=== PATIENT | female | born 1990 | race Two or more races ===

== ENCOUNTER 2020-07-20 01:11 | Emergency (ER) | payer OTHER, SELFPAY ==
[2020-07-20 01:14] VITALS: BP 119/63; PULSE 80; RESP 16; TEMP 36.7; O2SAT 98; BMI 26.5
--- NOTE | 2020-07-20 01:58 | ED.HA ---
HPI - Headache General Chief Complaint: Head Injury Stated Complaint: Head inj Time Seen by Provider: 07/20/20 01:57 Source: patient Mode of arrival: ambulatory Limitations: no limitations History of Present Illness HPI Narrative: This is a a year old female who presents after trying to move a shelf and states that she swung her head around and struck the right side against the edge of the vent could above the stove /oven. Patient denies loss of consciousness but states that she has had a headache since the event that has not improved with Tylenol. Otherwise, patient denies any visual disturbances or unsteady gait. Related Data Allergies Allergy/AdvReac Type Severity Reaction Status Date / Time No Known Allergies Allergy Verified 07/17/20 08:11 Review of Systems Review of Systems: Pertinent positives and negatives as stated in HPI and 10 point review of systems is otherwise negative. PMFSH Past Medical History Source: nursing notes reviewed Medical History GERD (gastroesophageal reflux disease) Migraine Surgical History History of breast lump/mass excision Family History Family History Father Cancer Hypertension Mother Hypertension Paternal Grandmother Breast cancer Paternal Grandfather FH: testicular cancer Social History Social History Alcohol intake: never Smoking Status: Heavy tobacco smoker Smoked in Last 30 Days: No Use of substances other than those prescribed or required for medical reasons: No Any prior treatment program specific to substance use: No Advance Directives: No Physical Exam Vital Signs: Vital Signs: Vital Signs Temp Pulse Resp BP Pulse Ox 07/20/20 01:14 98.0 F 80 16 119/63 98 Body Mass Index 26.5 VITAL SIGNS: Reviewed. GENERAL: Well developed, well nourished, in no acute distress. HEAD: Normocephalic/atraumatic, EYES: PERRLA, EOMI intact without pain, no nystagmus/pallor/icterus noted EARS: Ext canals without abnormality, TMs non-bulging and non-erythematous NOSE: Nares patent bilateral OROPHARYNX: no oral lesions noted, posterior pharynx clear and non-erythematous without noted tonsillar enlargement/erythema/exudates NECK: Supple, no adenopathy LUNGS: Normal breath sounds. No adventitious sounds or accessory muscle use. SpO2<98> CARDIOVASCULAR: Regular rate and rhythm without noted murmurs, no JVD or lower extremity edema. ABDOMEN: Soft, non-tender, non-distended with bowel sounds. No rigidity. No guarding. No palpable masses or hernias noted MUSCULOSKELETAL: No tenderness, deformities, or effusions noted on gross inspection. EXTREMITIES: No cyanosis, clubbing or edema. SKIN: Inspection of the skin reveals no rashes, ulcerations, jaundice, pallor, or petechiae. NEUROLOGIC: Alert and oriented x 4. Strength and sensation to light touch were grossly intact x 4. Course Course Course Narrative: This is a 30-year-old female with history and clinical presentation consistent with in her head injury without LOC and no abrasion/laceration. Patient was provided with combination analgesics and then became upset and eloped. Discharge Plan Discharge Clinical Impression: Minor head injury Qualifiers: Encounter type: initial encounter Qualified Code(s): S09.90XA - Unspecified injury of head, initial encounter Patient Disposition: Elopement Interventions: ED Discharge Assessment Last Done: 07/20/20 02:14 Discharge Date/Time: 07/20/20 02:14
--- NOTE | 2020-07-20 02:13 | PC.NURSE ---
pt wanted to leave after speaking to dr lei. aware. pt neuro intact, in nad.
== END 2020-07-20 02:14 | disposition left against medical advice (07) ==
PROVIDERS: Emergency Provider Student in an Organized Health Care Education/Training Program; PCP Internal Medicine
DX: S09.90XA Unspecified injury of head, initial encounter (principal); G44.309 Post-traumatic headache, unspecified, not intractable; Y29.XXXA Contact with blunt object, undetermined intent, initial encounter; Y93.9 Activity, unspecified; Y92.9 Unspecified place or not applicable; Y99.9 Unspecified external cause status; F17.200 Nicotine dependence, unspecified, uncomplicated; Z71.6 Tobacco abuse counseling
CPT/HCPCS: 96372; 99284

== ENCOUNTER 2020-07-31 08:08 | Outpatient (REF) | payer OTHER, SELFPAY ==
[2020-07-31 09:40] LABS: MANUAL DIFF FLAG NO
[2020-07-31 09:43] LABS: Basophils Absolute Auto 0.1 X10*3/uL (0.0-0.2); Basophils Percent Auto 0.8 % (0-2); Eosinophils Absolute Auto 0.1 X10*3/uL (0.0-0.4); Eosinophils Percent Auto 0.9 % (0-4); Hematocrit 38.2 % (37-47); Hemoglobin 12.4 g/dl (12.0-16.0); Imm Gran Abs Auto 0.01 X10*3/uL (0.00-0.03); Imm Gran Pct Auto 0.2 % (0.0-0.4); Lymphocytes Absolute Auto 1.9 X10*3/uL (1.2-4.9); Lymphocytes Percent Auto 29.2 % (20-40); Mean Corpuscular HGB Conc 32.5 g/dl (31.0-35.0); Mean Corpuscular Hemoglobin 28.3 pg (27.0-33.0); Mean Corpuscular Volume 87.2 fL (80-98); Mean Platelet Volume 9.6 fL (9.4-12.3); Monocytes Absolute Auto 0.5 X10*3/uL (0.1-1.2); Monocytes Percent Auto 7.4 % (2-11); Neutrophils Percent Auto 61.5 % (45-73); Platelet Count 276 X10*3/uL (160-400); Red Blood Count 4.38 X10*6/uL (4.20-5.50); Red Cell Distribution Width 11.9 % (11.0-16.0); White Blood Count 6.5 X10*3/uL (4.8-10.8)
[2020-07-31 10:13] LABS: Anion Gap 10 (12-20); Blood Urea Nitrogen 11 mg/dL (9-16); Calcium 9.2 mg/dL (8.4-10.2); Carbon Dioxide 28 mmol/L (22-29); Chloride 106 mmol/L (96-108); Cholesterol 129 mg/dL; Estimated Glomerular Filt Rate > 60; Glucose Fasting 82 mg/dL (60-99); HDL Cholesterol 46 mg/dL; LDL Cholesterol Calculated 77 mg/dl; Potassium 4.5 mmol/l (3.3-5.1); Sodium 139 mmol/L (135-145); Triglycerides 31 mg/dL
[2020-08-05 11:37] LABS: Vitamin D 25-OH, D2 <4 ng/mL; Vitamin D 25-OH, D3 34 ng/mL; Vitamin D 25-OH, Total 34 ng/mL (30-100)
== END 2020-07-31 08:09 | disposition home or self-care (01) ==
LOC: HO.LAB 08:08
PROVIDERS: PCP Internal Medicine; Visit Provider Nurse Practitioner Family
DX: Z00.00 Encounter for general adult medical examination without abnormal findings (principal)
CPT/HCPCS: 36415; 80048; 80061; 82306; 85025

== ENCOUNTER 2020-09-10 09:16 | Outpatient (REF) | payer OTHER, SELFPAY ==
[2020-09-10 10:27] LABS: COVID-19 Test Negative (Negative)
== END 2020-09-10 09:17 | disposition home or self-care (01) ==
LOC: HO.EMPCOV 09:16
PROVIDERS: PCP Internal Medicine; Visit Provider Internal Medicine
DX: Z20.828 Contact with and (suspected) exposure to other viral communicable diseases (principal)
CPT/HCPCS: 87635; C9803

== ENCOUNTER 2020-10-05 14:29 | Outpatient (REF) | payer OTHER, SELFPAY ==
[2020-10-05 14:52] LABS: COVID-19 Test Negative (Negative)
== END 2020-10-05 14:30 | disposition home or self-care (01) ==
LOC: HO.EMPCOV 14:29
PROVIDERS: Visit Provider Internal Medicine
DX: Z20.828 Contact with and (suspected) exposure to other viral communicable diseases (principal)
CPT/HCPCS: 36415; 87635; C9803

== ENCOUNTER 2020-10-17 13:57 | Outpatient (REF) | payer OTHER, SELFPAY ==
[2020-10-17 14:33] LABS: COVID-19 Test Negative (Negative); IDNOW Serial# 08D9AD1C
== END 2020-10-17 13:58 | disposition home or self-care (01) ==
LOC: HO.LAB 13:57
PROVIDERS: Visit Provider Internal Medicine
DX: Z20.822 Contact with and (suspected) exposure to COVID-19 (principal)
CPT/HCPCS: 36415; 87635

== ENCOUNTER 2020-11-26 12:27 | Outpatient (REF) | payer OTHER, SELFPAY ==
[2020-11-26 12:47] LABS: COVID-19 Test Negative (Negative); IDNOW Serial# 55D5AD1C
== END 2020-11-26 12:28 | disposition home or self-care (01) ==
LOC: HO.LAB 12:27
PROVIDERS: Visit Provider Internal Medicine
DX: Z20.822 Contact with and (suspected) exposure to COVID-19 (principal)
CPT/HCPCS: 36415; 87635; C9803

== ENCOUNTER 2020-12-31 10:30 | Outpatient (REF) | payer OTHER, SELFPAY ==
[2020-12-31 10:50] LABS: COVID-19 Test Positive (Negative); IDNOW Serial# 55D5AD1C
== END 2020-12-31 10:31 | disposition home or self-care (01) ==
LOC: HO.LAB 10:30
PROVIDERS: Visit Provider Internal Medicine
DX: Z20.822 Contact with and (suspected) exposure to COVID-19 (principal)
CPT/HCPCS: 36415; 87635; C9803

== ENCOUNTER 2021-01-11 11:56 | Outpatient (REF) | payer OTHER, SELFPAY ==
[2021-01-12 08:16] LABS: HBS Num1 78.74 mIU/mL (0-7.99); HBsAGNum1 0.36 S/CO (0.00-0.99); Hepatitis B Surface Antigen Negative (Negative); ~Hepatitis B Surface Antibody REACTIVE (Nonreactive)
[2021-01-12 08:22] LABS: HBc Num1 0.02 S/CO (0.00-0.79); Hepatitis B Core Antibody Nonreactive (Nonreactive)
[2021-01-12 09:11] LABS: Rubella IgG Antibody 4.03 Index
== END 2021-01-11 11:57 | disposition home or self-care (01) ==
LOC: HO.LAB 11:56
PROVIDERS: PCP Internal Medicine; Visit Provider Internal Medicine
DX: Z01.84 Encounter for antibody response examination (principal)
CPT/HCPCS: 36415; 86704; 86706; 86735; 86762; 86765; 86787; 87340

== ENCOUNTER 2021-05-04 14:32 | Outpatient (REF) | payer OTHER, SELFPAY ==
[2021-05-05 04:36] LABS: SARS COV2 IgG Negative (Negative)
== END 2021-05-04 14:33 | disposition home or self-care (01) ==
LOC: HO.LAB 14:32
PROVIDERS: PCP Internal Medicine; Visit Provider Internal Medicine
DX: Z20.822 Contact with and (suspected) exposure to COVID-19 (principal); K21.9 Gastro-esophageal reflux disease without esophagitis
CPT/HCPCS: 36415; 86769

== ENCOUNTER 2021-05-07 08:48 | Outpatient (REF) | payer OTHER, SELFPAY ==
[2021-05-07 10:13] LABS: MANUAL DIFF FLAG NO
[2021-05-07 10:19] LABS: Basophils Percent Auto 0.6 % (0-2); Eosinophils Absolute Auto 0.1 X10*3/uL (0.0-0.4); Eosinophils Percent Auto 0.8 % (0-4); Hematocrit 35.3 % (37-47); Hemoglobin 11.4 g/dl (12.0-16.0); Imm Gran Abs Auto 0.01 X10*3/uL (0.00-0.03); Imm Gran Pct Auto 0.2 % (0.0-0.4); Lymphocytes Absolute Auto 2.1 X10*3/uL (1.2-4.9); Lymphocytes Percent Auto 32.3 % (20-40); Mean Corpuscular HGB Conc 32.3 g/dl (31.0-35.0); Mean Corpuscular Hemoglobin 28.1 pg (27.0-33.0); Mean Corpuscular Volume 86.9 fL (80-98); Mean Platelet Volume 9.5 fL (9.4-12.3); Monocytes Absolute Auto 0.5 X10*3/uL (0.1-1.2); Monocytes Percent Auto 6.8 % (2-11); Neutrophils Absolute Auto 3.9 X10*3/uL (2.0-8.3); Neutrophils Percent Auto 59.3 % (45-73); Platelet Count 279 X10*3/uL (160-400); Red Blood Count 4.06 X10*6/uL (4.20-5.50); Red Cell Distribution Width 12.2 % (11.0-16.0); White Blood Count 6.6 X10*3/uL (4.8-10.8)
[2021-05-07 10:55] LABS: Alanine Aminotransferase 19 U/L (0-31); Alkaline Phosphatase 49 U/L (39-117); Anion Gap 13 (12-20); Aspartate Amino Transferase 32 U/L (5-31); Bilirubin Total 0.4 mg/dL (0.0-1.0); Blood Urea Nitrogen 9 mg/dL (9-16); Carbon Dioxide 21 mmol/L (22-29); Chloride 109 mmol/L (96-108); Estimated Glomerular Filt Rate > 60; Glucose Random 79 mg/dL (60-115); Potassium 4.1 mmol/L (3.3-5.1); Sodium 139 mmol/L (135-145); Total Protein 6.5 g/dL (6.5-8.0)
[2021-05-07 11:11] LABS: SARS COV2 IgG Negative (Negative)
[2021-05-07 11:16] LABS: Thyroid Stimulating Hormone 1.32 uIU/mL (0.32-4.0)
[2021-05-07 11:40] LABS: Folate 11.6 ng/mL (> or = 4.0); Vitamin B12 624 pg/mL (200-900)
== END 2021-05-07 08:49 | disposition home or self-care (01) ==
LOC: HO.LAB 08:48
PROVIDERS: PCP Internal Medicine; Visit Provider Internal Medicine
DX: Z20.822 Contact with and (suspected) exposure to COVID-19 (principal); R53.83 Other fatigue
CPT/HCPCS: 80053; 82607; 82746; 84439; 84443; 85025; 86769; U0003; U0005

== ENCOUNTER 2021-05-11 13:04 | Outpatient (REF) | payer OTHER, SELFPAY | END 2021-05-11 13:05 | disposition home or self-care (01) | LOC: HO.LAB 13:04 | PROVIDERS: PCP Internal Medicine; Visit Provider Internal Medicine | DX: Z13.89 Encounter for screening for other disorder (principal) ==

== ENCOUNTER → 2021-05-11 13:26 | Outpatient (BNVA) | payer OTHER, SELFPAY | PROVIDERS: PCP Internal Medicine | DX: Z13.89 Encounter for screening for other disorder (principal); Z20.822 Contact with and (suspected) exposure to COVID-19 | CPT/HCPCS: 36415; 87635; C9803 ==

== ENCOUNTER 2021-06-18 20:57 | Emergency (ER) | payer OTHER, SELFPAY ==
[2021-06-18 21:08] VITALS: BP 125/81; PULSE 82; RESP 18; TEMP 36.7; O2SAT 98; BMI 25.6
[2021-06-18 21:34] LABS: MANUAL DIFF FLAG NO
[2021-06-18 21:35] LABS: Basophils Percent Auto 0.5 % (0-2); Eosinophils Percent Auto 0.5 % (0-4); Hemoglobin 12.2 g/dl (12.0-16.0); Imm Gran Abs Auto 0.01 X10*3/uL (0.00-0.03); Imm Gran Pct Auto 0.2 % (0.0-0.4); Lymphocytes Absolute Auto 1.9 X10*3/uL (1.2-4.9); Lymphocytes Percent Auto 28.9 % (20-40); Mean Corpuscular Hemoglobin 28.4 pg (27.0-33.0); Mean Platelet Volume 9.3 fL (9.4-12.3); Monocytes Absolute Auto 0.7 X10*3/uL (0.1-1.2); Monocytes Percent Auto 10.9 % (2-11); Neutrophils Absolute Auto 3.9 X10*3/uL (2.0-8.3); Platelet Count 247 X10*3/uL (160-400); Red Cell Distribution Width 12.3 % (11.0-16.0); White Blood Count 6.5 X10*3/uL (4.8-10.8)
[2021-06-18 21:51] LABS: Alanine Aminotransferase 14 U/L (0-31); Albumin Level 4.2 g/dL (3.5-5.0); Alkaline Phosphatase 60 U/L (39-117); Anion Gap 12 (12-20); Aspartate Amino Transferase 22 U/L (5-31); Bilirubin Total 0.4 mg/dL (0.0-1.0); Blood Urea Nitrogen 8 mg/dL (9-16); Calcium 9.1 mg/dL (8.4-10.2); Carbon Dioxide 24 mmol/L (22-29); Chloride 107 mmol/L (96-108); Estimated Glomerular Filt Rate > 60; Glucose Random 91 mg/dL (60-115); Potassium 3.9 mmol/L (3.3-5.1); Sodium 139 mmol/L (135-145); Total Protein 6.7 g/dL (6.5-8.0)
[2021-06-18 21:53] LABS: Appearance Urine CLEAR; Color Urine YELLOW; Glucose Urine UA NEG (NEG); Leukocyte Esterase Urine NEG (NEG); Nitrite Urine NEG (NEG); Specific Gravity - Urine <= 1.005 (1.005-1.025); Urine Blood NEG (NEG); Urine Ketones NEG (NEG); Urine Protein NEG (NEG-TRACE)
[2021-06-18 21:57] LABS: UPreg QC Valid YES; Urine Pregnancy NEGATIVE (NEGATIVE)
[2021-06-18 23:26] VITALS: BP 122/72; PULSE 71; RESP 14; O2SAT 100
--- NOTE | 2021-06-18 23:56 | ED_ITS ---
HPI - Nausea/Vomiting/Diarrhea General Chief complaint: Nausea/Vomiting/Diarrhea Stated complaint: Diarrhea/Blood in stool/Headache Time Seen by Provider: 06/18/21 23:53 Source: patient Mode of arrival: ambulatory Limitations: no limitations History of Present Illness HPI Narrative: This is a 31-year-old female came to the emergency department for evaluation of headache, lower abdominal pain, nausea, vomiting, and blood in the diarrhea stool. Patient stated that symptoms started since Monday, symptoms been persistent since then, no recent travel, no sick contact, no recent use of antibiotics, no fever, no chills. Patient emergency room reported improvement of her symptoms is no nausea or vomiting now. Related Data Previous Rx's Medication Instructions Recorded valacyclovir 500 mg tablet 500 mg PO DAILY #90 tab 05/04/21 Allergies Allergy/AdvReac Type Severity Reaction Status Date / Time No Known Allergies Allergy Verified 11/26/20 11:39 Review of Systems 2 Review of Systems: All other systems are reviewed and are negative Constitutional: Reports as per HPI and Reports no additional constitutional complaints Eyes: Reports as per HPI and Reports no additional eye complaints Reports system reviewed and no additional complaints, except as documented Cardiovascular: Reports as per HPI and Reports no additional cardiovascular complaints Respiratory: Reports as per HPI and Reports no additional respiratory complaints Gastrointestinal: Reports as per HPI and Reports no additional gastrointestinal complaints Genitourinary: Reports no additional female genitourinary complaints Musculoskeletal: Reports no additional musculoskeletal complaints Skin/Breast: Reports system reviewed and no additional complaints, except as docu Psychiatric: Reports no additional psychiatric complaints Endocrine: Reports no additional endocrine complaints Hematologic/Lymphatic: Reports no additional hematologic/lymphatic complaints Allergic/Immunologic: Reports no additional allergic/immunologic complaints Reports system reviewed and no additional complaints, except as documented and Reports Abnormal speech present [facility] Past Medical History Medical History GERD (gastroesophageal reflux disease) Migraine Surgical History History of breast lump/mass excision Family History Family History Father Cancer Hypertension Mother Hypertension Paternal Grandmother Breast cancer Paternal Grandfather FH: testicular cancer Social History Social History Alcohol intake: never Advance Directives: No Patient : No Physical Exam Vital Signs: Vital Signs: Last Vital Signs Temp 98.1 F 06/18/21 21:08 Pulse 71 06/18/21 23:26 Resp 14 06/18/21 23:26 BP 122/72 06/18/21 23:26 Pulse Ox 100 06/18/21 23:26 Body Mass Index 25.6 Vital signs have been reviewed as appeared to be correct. Blood pressure normal . Heart rate normal. Respiration rate normal. Temperature normal. Oxygen saturation normal. Appearance: Alert. Oriented X3. No acute distress. Head: Normal external exam. Normocephalic. Atraumatic. No Michele signs noted. No raccoon eyes noted Eyes: PERRLA. EOMI. Conjunctiva and sclera normal. Eyelids normal. ENT: TM's Normal. Pharynx normal. Uvula midline. Moist mucous membranes. No trismus noted. No drooling noted. No muffled voice noted. Neck: Normal inspection. Neck supple. FROM. No adenopathy. Thyroid Normal. No meningeal signs. No neck mass noted. CVS: Normal heart rate and rhythm. Heart sound normal. No murmurs noted. Pulses normal throughout. Respiratory: No respiratory distress. Painless inspiration. Breath sounds normal. No wheezes/rales/rhonchi noted. Chest nontender. No accessory muscle usage noted or decreased air movement noted. Abdomen: Soft and nontender. Bowel sounds normal in all 4 quadrants. No distention noted. No organomegaly noted. No visible injury noted. Rectal exam: Normal inspection, no external or internal hemorrhoid, no apparent blood in the vault. Back: No CVA tenderness. Full range of motion noted. Skin: Skin warm and dry. Normal skin color. Normal skin turgor. No rashes/lesions/lacerations noted. Extremities: No lower extremity edema. Extremities exhibit normal range of motion. Extremities nontender. Neuro: Oriented X 3. Cranial nerve exam: II-XII are grossly intact No motor deficit. No sensory deficit. Reflexes normal. Course Course Course Narrative: Assessment and plan. 31-year-old female came in with symptoms of gastroenteritis, patient declined any active symptoms now, labs are unremarkable. Able to tolerate p.o. intake. Will reassured, discharged home with instruction of drinking plenty of fluid and keep hydrated. Stable vital signs, stable H&H. MDM - Nausea/Vomiting/Diarrhea Lab Data Attestation: I reviewed the patient's lab results. Result diagrams: 06/18/21 21:23 06/18/21 21:23 Labs: Lab Results 06/18/21 06/18/21 06/18/21 Range/Units 21:23 21:23 21:23 WBC 6.5 (4.8-10.8) X10*3/uL RBC 4.30 (4.20-5.50) X10*6/uL Hgb 12.2 (12.0-16.0) g/dl Hct 37.0 (37-47) % MCV 86.0 (80-98) fL MCH 28.4 (27.0-33.0) pg MCHC 33.0 (31.0-35.0) g/dl RDW 12.3 (11.0-16.0) % Plt Count 247 (160-400) X10*3/uL MPV 9.3 L (9.4-12.3) fL Immature Gran % (Auto) 0.2 (0.0-0.4) % Neut % (Auto) 59.0 (45-73) % Lymph % (Auto) 28.9 (20-40) % [place] % (Auto) 10.9 (2-11) % Eos % (Auto) 0.5 (0-4) % Baso % (Auto) 0.5 (0-2) % Lymph # (Auto) 1.9 (1.2-4.9) X10*3/uL [place] # (Auto) 0.7 (0.1-1.2) X10*3/uL Eos # (Auto) 0.0 (0.0-0.4) X10*3/uL Baso # (Auto) 0.0 (0.0-0.2) X10*3/uL Abs Immat Gran (auto) 0.01 (0.00-0.03) X10*3/uL Absolute Neuts (auto) 3.9 (2.0-8.3) X10*3/uL Absolute Nucleated RBC 0.000 (0.0-0.012) X10*3/uL Nucleated RBC % (auto) 0.0 (0.0-0.2) /100WBC Sodium 139 (135-145) mmol/L Potassium 3.9 (3.3-5.1) mmol/L Chloride 107 (96-108) mmol/L Carbon Dioxide 24 (22-29) mmol/L Anion Gap 12 (12-20) BUN 8 L (9-16) mg/dL Creatinine 0.79 (0.5-1.4) mg/dL Estim Creat Clear Calc 92.0 Estimated GFR > 60 Random Glucose 91 (60-115) mg/dL Calcium 9.1 (8.4-10.2) mg/dL Total Bilirubin 0.4 (0.0-1.0) mg/dL AST 22 (5-31) U/L ALT 14 (0-31) U/L Alkaline Phosphatase 60 D (39-117) U/L Total Protein 6.7 (6.5-8.0) g/dL Albumin 4.2 (3.5-5.0) g/dL Urine Color YELLOW Urine Appearance CLEAR Urine pH 6.0 (5.0-8.0) Ur Specific [place] <= 1.005 (1.005-1.025) Urine Protein NEG (NEG-TRACE) MG/DL Urine Glucose (UA) NEG (NEG) MG/DL Urine Ketones NEG (NEG) MG/DL Urine Blood NEG (NEG) Urine Nitrite NEG (NEG) Ur Leukocyte Esterase NEG (NEG) Urine Test (NEGATIVE) Stool Occult Blood (NEGATIVE) COVID-19 (MALOU) (Negative) COVID-19 Clin Com 06/18/21 06/18/21 06/18/21 Range/Units 21:23 23:44 23:57 WBC (4.8-10.8) X10*3/uL RBC (4.20-5.50) X10*6/uL Hgb (12.0-16.0) g/dl Hct (37-47) % MCV (80-98) fL MCH (27.0-33.0) pg MCHC (31.0-35.0) g/dl RDW (11.0-16.0) % Plt Count (160-400) X10*3/uL MPV (9.4-12.3) fL Immature Gran % (Auto) (0.0-0.4) % Neut % (Auto) (45-73) % Lymph % (Auto) (20-40) % [place] % (Auto) (2-11) % Eos % (Auto) (0-4) % Baso % (Auto) (0-2) % Lymph # (Auto) (1.2-4.9) X10*3/uL [place] # (Auto) (0.1-1.2) X10*3/uL Eos # (Auto) (0.0-0.4) X10*3/uL Baso # (Auto) (0.0-0.2) X10*3/uL Abs Immat Gran (auto) (0.00-0.03) X10*3/uL Absolute Neuts (auto) (2.0-8.3) X10*3/uL Absolute Nucleated RBC (0.0-0.012) X10*3/uL Nucleated RBC % (auto) (0.0-0.2) /100WBC Sodium (135-145) mmol/L Potassium (3.3-5.1) mmol/L Chloride (96-108) mmol/L Carbon Dioxide (22-29) mmol/L Anion Gap (12-20) BUN (9-16) mg/dL Creatinine (0.5-1.4) mg/dL Estim Creat Clear Calc Estimated GFR Random Glucose (60-115) mg/dL Calcium (8.4-10.2) mg/dL Total Bilirubin (0.0-1.0) mg/dL AST (5-31) U/L ALT (0-31) U/L Alkaline Phosphatase (39-117) U/L Total Protein (6.5-8.0) g/dL Albumin (3.5-5.0) g/dL Urine Color Urine Appearance Urine pH (5.0-8.0) Ur Specific [place] (1.005-1.025) Urine Protein (NEG-TRACE) MG/DL Urine Glucose (UA) (NEG) MG/DL Urine Ketones (NEG) MG/DL Urine Blood (NEG) Urine Nitrite (NEG) Ur Leukocyte Esterase (NEG) Urine Test NEGATIVE (NEGATIVE) Stool Occult Blood POSITIVE (NEGATIVE) COVID-19 (MALOU) Negative (Negative) COVID-19 Clin Com See Note Discharge Plan Discharge Clinical Impression: Gastroenteritis Patient Disposition: Home, Self-Care Instructions: Gastroenteritis (ED) Prescriptions: No Action valacyclovir 500 mg tablet 500 mg PO DAILY Qty: 90 RF: 1 Referrals: Po,Isi Garcia MD [Primary Care Provider] - 2 days
[2021-06-19 00:07] LABS: OBS1 POSITIVE (NEGATIVE)
[2021-06-19 00:08] LABS: OBS Int Ctl Valid YES
[2021-06-19 00:22] LABS: COVID-19 Test Negative (Negative); IDNOW Serial# 9DD0AD1C
[2021-06-19] MEDS: Acetaminophen 325 MG TABLET PO (01:11)
== END 2021-06-19 01:16 | disposition home or self-care (01) ==
PROVIDERS: Emergency Provider Emergency Medicine; PCP Internal Medicine
DX: K52.9 Noninfective gastroenteritis and colitis, unspecified (principal); R51.9 Headache, unspecified; R10.9 Unspecified abdominal pain; R11.2 Nausea with vomiting, unspecified; Z20.822 Contact with and (suspected) exposure to COVID-19; Z79.899 Other long term (current) drug therapy
CPT/HCPCS: 36415; 80053; 81003; 81025; 82272; 85025; 87635; 99283; 99284

== ENCOUNTER 2022-08-12 10:58 | Outpatient (REF) | payer OTHER, SELFPAY ==
[2022-08-12 11:12] LABS: MANUAL DIFF FLAG NO
[2022-08-12 11:51] LABS: Basophils Absolute Auto 0.1 X10*3/uL (0.0-0.2); Basophils Percent Auto 0.8 % (0-2); Eosinophils Absolute Auto 0.1 X10*3/uL (0.0-0.4); Eosinophils Percent Auto 0.7 % (0-4); Hematocrit 36.9 % (37.0-47.0); Imm Gran Abs Auto 0.01 X10*3/uL (0.00-0.03); Imm Gran Pct Auto 0.1 % (0.0-0.4); Lymphocytes Absolute Auto 2.2 X10*3/uL (1.2-4.9); Lymphocytes Percent Auto 30.6 % (20-40); Mean Corpuscular HGB Conc 32.5 g/dl (31.0-35.0); Mean Corpuscular Hemoglobin 28.1 pg (27.0-33.0); Mean Corpuscular Volume 86.4 fL (80.0-98.0); Monocytes Absolute Auto 0.6 X10*3/uL (0.1-1.2); Monocytes Percent Auto 7.8 % (2-11); Neutrophils Absolute Auto 4.3 x10*3/uL (2.0-8.3); Platelet Count 255 X10*3/uL (160-400); Red Blood Count 4.27 X10*6/uL (4.20-5.50); White Blood Count 7.1 X10*3/uL (4.8-10.8)
[2022-08-12 12:49] LABS: Folate 14.1 ng/mL (> or = 4.0); TSH reflex Free T4 1.01 uIU/mL (0.32-4.0); Vitamin B12 419 pg/mL (200-900)
[2022-08-12 13:26] LABS: Alanine Aminotransferase 8 U/L (0-31); Albumin Level 4.1 g/dL (3.5-5.0); Alkaline Phosphatase 51 U/L (39-117); Anion Gap 13 (12-20); Aspartate Amino Transferase 14 U/L (5-31); Bilirubin Total 0.6 mg/dL (0.0-1.0); Blood Urea Nitrogen 12 mg/dL (9-16); Calcium 9.2 mg/dL (8.4-10.2); Carbon Dioxide 24 mmol/L (22-29); Chloride 108 mmol/L (96-108); Cholesterol 129 mg/dL; Estimated Glomerular Filt Rate > 60; Glucose Random 82 mg/dL (60-115); HDL Cholesterol 39 mg/dL; LDL Cholesterol Calculated 84 mg/dl; Potassium 4.5 mmol/L (3.3-5.1); Sodium 140 mmol/L (135-145); Total Protein 6.4 g/dL (6.5-8.0); Triglycerides 34 mg/dL; Vitamin D 25-OH Total 23.3 ng/mL (>30)
== END 2022-08-12 10:59 | disposition home or self-care (01) ==
LOC: HO.LAB 10:58
PROVIDERS: Visit Provider Nurse Practitioner Family
DX: Z13.29 Encounter for screening for other suspected endocrine disorder (principal); Z13.21 Encounter for screening for nutritional disorder; Z13.220 Encounter for screening for lipoid disorders; I10 Essential (primary) hypertension
CPT/HCPCS: 36415; 80053; 80061; 82306; 82607; 82746; 84443; 85025

== ENCOUNTER 2022-10-17 21:40 | Outpatient (REF) | payer OTHER, SELFPAY ==
[2022-10-17 22:19] LABS: COVID-19 Test Negative (Negative); IDNOW Serial# 16C4AD1C; IDNOW Serial# BCCEAD1C; Influenza A Negative (Negative); Influenza B2 Negative (Negative)
== END 2022-10-17 21:41 | disposition home or self-care (01) ==
LOC: HO.LAB 21:40
PROVIDERS: Visit Provider Internal Medicine
DX: Z20.822 Contact with and (suspected) exposure to COVID-19 (principal)
CPT/HCPCS: 87502; 87635

== ENCOUNTER 2022-10-19 14:18 | Outpatient (REF) | payer OTHER, SELFPAY | END 2022-10-19 14:19 | disposition home or self-care (01) | LOC: HO.SH 14:18 | PROVIDERS: Visit Provider Nurse Practitioner Family | DX: H93.293 Other abnormal auditory perceptions, bilateral (principal) | CPT/HCPCS: 92557; 92567 ==

== ENCOUNTER 2023-04-21 09:34 | Emergency (ER) | payer OTHER, SELFPAY ==
[2023-04-21 09:55] VITALS: BP 122/86; PULSE 74; RESP 16; TEMP 36.1; O2SAT 100; BMI 27.4
[2023-04-21 10:31] LABS: COVID-19 Test Negative (Negative); IDNOW Serial# BCCEAD1C
[2023-04-21 10:32] LABS: IDNOW Serial# 08D9AD1C; Strep A Nucleic Acid Negative (Negative)
[2023-04-21 11:02] VITALS: BP 129/82; PULSE 72; RESP 16; TEMP 35.9; O2SAT 100
--- NOTE | 2023-04-21 11:05 | PC.NURSE ---
pt a&ox3, vss, pt coming in d/t sore throat - states she would have gone clinic but lost her wallet yesterday so they would not accept her. rating 4/10 throat pain. denies n/v/d, fever, chills. pt states she's feeling congested.
--- NOTE | 2023-04-21 11:22 | ED_ITS ---
HPI - General Adult General Chief complaint: General Medical Stated complaint: strep throat ? Time Seen by Provider: 04/21/23 11:04 Source: patient Mode of arrival: ambulatory Limitations: no limitations History of Present Illness HPI narrative: Patient is a 33-year-old female presenting to the emergency department complaining of sore throat since yesterday. Wants to be sure it is not strep, as she has at home. Denies fevers. Denies cough or nasal congestion. Denies any difficulty swallowing. MD complaint: sore throat Onset (ago): hour(s) Radiation: non-radiation Severity: moderate Quality: burning Pain Consistency: constant Relieving factors: none Exacerbating factors: none Associated symptoms: denies other symptoms Treatments prior to arrival: none Related Data Home Medications Medication Instructions Recorded Confirmed ibuprofen 400 mg tablet 400 mg PO TID 07/26/21 08/12/22 medroxyprogesterone 150 mg/mL 150 mg IM [id number] 06/10/22 08/12/22 intramuscular suspension (Depo-Provera) Previous Rx's Medication Instructions Recorded sumatriptan succinate 50 mg tablet 50 mg PO Q2-4H PRN migraine 02/12/22 (Imitrex) headache #10 tabs valacyclovir 500 mg tablet 500 mg PO DAILY #90 tabs 01/01/23 Allergies Allergy/AdvReac Type Severity Reaction Status Date / Time No Known Allergies Allergy Verified 04/21/23 11:05 Review of Systems Review of Systems: As per HPI. Yes all other systems are reviewed and are negative Constitutional: Constitutional: Reports as per HPI [facility] Past Medical History Medical History GERD (gastroesophageal reflux disease) Migraine Surgical History History of breast lump/mass excision Family History Family History Father Cancer Hypertension FH: prostate cancer Mother Hypertension Substance abuse Paternal Grandmother Breast cancer Paternal Grandfather FH: testicular cancer Social History Social History Housing: Apartment Alcohol intake: never Patient Tobacco Use Status: Never used Tobacco Years Smoked: 2012 prn Smoked in Last 30 Days: Yes Use of substances other than those prescribed or required for medical reasons: No Advance Directives: No Patient : No service: No Current occupational status: employed Cognitive needs: No Hearing needs: No Vision needs: No Physical Exam ED Vital Signs: Vital Signs - 24 hr 04/21/23 09:55 04/21/23 11:02 Temperature 96.9 F 96.6 F L Pulse Rate 74 72 Respiratory Rate 16 16 Blood Pressure 122/86 129/82 Pulse Oximetry 100 100 Oxygen Delivery Method Room Air Room Air BMI result Body Mass Index 27.4 Vital signs have been reviewed and appear to be correct. Blood pressure normal. Heart rate normal. Respiratory rate normal. Temperature normal. Oxygen saturation normal. Const General: cooperative, healthy appearing and no acute distress Orientation/consciousness: oriented to person, oriented to place, oriented to time and patient oriented x3 Limitations: no limitations HENMT Head: Yes normocephalic and Yes atraumatic Ears: external ears normal and TM's normal bilaterally General nose exam: Normal external nose present Face and sinus: Yes face symmetric Mouth: oropharynx normal and moist mucous membranes Throat: Yes tonsils normal, Yes uvula midline, No uvular edema, Yes cobblestoning and Yes other (mild erythema, no edema or exudate) Eyes Pupils: Equal, round and reactive pupils present Neck Neck: Yes normal visual inspection, Yes no lymphadenopathy and Yes supple Resp Effort & Inspection: normal respiratory effort and able to speak in complete sentences Auscultation: clear to auscultation bilaterally Cardio Rate: regular rate Rhythm: regular rhythm Heart sounds: S1 normal heart sound present and S2 normal heart sound present GI Palpation (GI): Soft to palpation and nontender Auscultation: normoactive bowel sounds General: Yes no CVA tenderness Back/Spine/Pelvis Back: no CVA tenderness Skin General skin exam: elasticity normal and turgor normal Neuro General: oriented to person, oriented to place, oriented to time, patient oriented x3, moves all extremities, no focal motor deficits and CN's II-XI intact bilaterally Cranial nerves: Yes Equal, round and reactive pupils present Cognition (Neuro): normal cognition Extrem General: Yes full ROM, Yes no pedal edema and Yes no calf tenderness Psych Mental Status: mental status grossly normal Affect: normal affect Thought process: Normal thought process present Medical Decision Making Medical Decision Making MDM Narrative: Patient is a 33-year-old female presenting to the emergency department complaining of sore throat since yesterday. On exam patient is awake, A+Ox3, VS WNL, afebrile, normal neurological exam without focal deficits, mild erythema and cobblestoning to posterior oropharynx, no edema or exudate, no lymphadenopathy, lungs clear to auscultation throughout. Given reported symptoms and physical exam findings, initial differential includes strep pharyngitis, viral pharyngitis. Unlikely peritonsillar abscess, Sharan's angina. Labs notable for negative Covid, negative strep. Feel symptoms are likely viral. All results discussed and questions answered. Return precautions discussed at bedside. Instructed patient to alternate Tylenol and ibuprofen, warm salt water gargle several times daily. Patient verbalized understanding of and agreement with plan. Differential Diagnosis Differential Diagnoses: The differential diagnosis associated with the presen tation includes As per [facility]. Lab Data [facility] Lab Attestation statement: I reviewed the patient's lab results. As per [facility]. Labs: Lab Results 04/21/23 04/21/23 Range/Units 10:03 10:03 COVID-19 ([facility]) Negative (Negative) COVID-19 Clin Com See Note S. pyogenes GrpA JONNA Negative (Negative) External Record Review External record reviewed: Inpatient record, Office record and Outpatient record Discharge Plan Discharge Clinical Impression: Acute viral pharyngitis Patient Disposition: Home, Self-Care Instructions: Pharyngitis (ED) Additional Instructions: You have been evaluated in the emergency department today for a sore throat. Your evaluation, including strep and Covid swabs, suggests that your symptoms are due to a viral cause. You can alternate 600 mg ibuprofen and 650 mg Tylenol every 6 hours as needed for discomfort. You should also perform warm salt water gargle several times daily. Please follow-up with your primary care physician within 2 days. Return to the emergency department if you experience worsening pain, fever 100.4 or greater, difficulty swallowing, difficulty breathing, or any other concerning symptoms.. Prescriptions: No Action sumatriptan succinate [Imitrex] 50 mg tablet 50 mg PO Q2-4H PRN (Reason: migraine headache) Qty: 10 1RF Rx Instructions: do not exceed 4 doses per 24 hrs valacyclovir 500 mg tablet 500 mg PO DAILY Qty: 90 1RF ibuprofen 400 mg tablet 400 mg PO TID medroxyprogesterone [Depo-Provera] 150 mg/mL suspension 150 mg IM [id number]
== END 2023-04-21 11:38 | disposition home or self-care (01) ==
PROVIDERS: Emergency Provider Emergency Medicine; PCP Internal Medicine
DX: B34.9 Viral infection, unspecified (principal); J02.9 Acute pharyngitis, unspecified; Z20.822 Contact with and (suspected) exposure to COVID-19
CPT/HCPCS: 87635; 87651; 99283; 99284

== ENCOUNTER 2023-05-26 14:02 | Outpatient (AMB) | payer OTHER, SELFPAY ==
[2023-05-26 14:12] VITALS: BP 116/70; PULSE 86; O2SAT 98; BMI 28.2
--- NOTE | 2023-05-26 14:12 | A.OFFPC_ITS ---
Vital Signs 05/26/23 14:12 Height 5 ft 2 in Weight 154 lb BMI 28.2 BP 116/70 Blood Pressure Location Lt brachial Position Sitting Pulse 86 Pulse Source Pulse Oximeter Pulse Oximetry (%) 98 Oxygen Delivery Method Room Air Intake Visit Reasons: right calf pain Allergies No Known Allergies Allergy (Verified 05/26/23 14:14) Tobacco use date assessed: 05/26/23 Dental Screening Dental Screen Date: 05/26/23 Did you have a dental visit in the last 12 months?: Yes Did you have a dental problem in the last 6 months where you did not have access to dental care?: No Was dental information given to patient?: Patient has dentist HPI HPI Comments History of Present Illness Details 32-year-old female with a history of GERD, migraine and anemia. Patient and Dr. Iglesias last seen in August. Patient reports bilateral calf pain x4 days. Patient reports left calf pain resolved. Pain in right calf persists and is a constant cramping pain. Denies redness swelling or warmth. No concerns for acute DVT at this time.Patient on Nuva ring birthcontrol. Patient denies any acute injury. Patient reports has not been drinking enough fluids and has not tried any medications to treat pain in her calves. [facility] Medical History GERD (gastroesophageal reflux disease) Migraine Surgical History History of breast lump/mass excision Family History (Updated 05/26/23 @ 14:15 by Yuly Hernandez [facility]) Father Cancer Hypertension FH: prostate cancer Mother Hypertension Substance abuse Paternal Grandmother Breast cancer Paternal Grandfather FH: testicular cancer Social History Housing: Apartment Alcohol intake: never Patient Tobacco Use Status: Never used Tobacco Years Smoked: 2012 prn e-Cigarette/Vaping Use: Never Used Second Hand Smoke Exposure: No service: No Current occupational status: employed Cognitive needs: No Hearing needs: No Vision needs: No Questionnaire PHQ-9 Over the last 2 weeks, how often have you been bothered by any of the following problems? 1. Little interest or pleasure in doing things: not at all 2. Feeling down, depressed, or hopeless: not at all 3. Trouble falling or staying asleep, or sleeping too much: not at all 4. Feeling tired or having little energy: not at all 5. Poor appetite or overeating: not at all 6. Feeling bad about yourself - or that you are a failure or have let yourself or your family down: not at all 7. Trouble concentrating on things, such as reading the newspaper or watching television: not at all 8. Moving or speaking so slowly that other people could have noticed. Or the opposite - being so fidgety or restless that you have been moving around a lot more than usual: not at all 9. Thoughts that you would be better off or of hurting yourself in some way: not at all Total score: 0 Depression Screening Interpretation: Negative Source: Developed by Drs. Bora Colmenares, Dahlia Tijerina, Yunior Porras and colleagues, with an educational sheila from [employer]. Thrive Questionnaire Date Thrive assessed: 05/26/23 I am a: Patient What is your living situation today?: I have a steady place to live Within the past 12 months, did the food you bought not last and you didn't have the money to get more?: Never true Within the past 12 months, did you worry whether your food would run out before you got money to buy more?: Never true Do you have trouble paying for medicines?: No Do you have trouble getting transportation to medical appointments?: No Do you have trouble paying your heating and electricity bill?: No Do you have trouble taking care of your child, family member or friend?: No Do you have trouble with day-to-day activities such as bathing, preparing meals, shopping, managing finances, etc.?: No Are you currently unemployed and looking for a job?: No Are you interested in more education?: No Currently or been in a relationship where the following occur: no concerns reported AUDIT C Alcohol Use Questionnaire (AUDIT-C) 1. How often do you have a drink containing alcohol?: Never 3. How often do you have six or more drinks on one occasion?: Never Total Score: 0 MERCY-7 AMB Questionnaire MERCY-7 Date MERCY - 7 assessed: 05/26/23 Feeling nervous, anxious, or on edge: 0 = Not at all Not being able to stop or control worryin = Not at all Worrying too much about different things: 0 = Not at all Trouble relaxin = Not at all Being so restless that it is hard to sit still: 0 = Not at all Becoming easily annoyed or irritable: 0 = Not at all Feeling afraid as if something awful might happen: 0 = Not at all Total MERCY-7 score (0-4 normal; 5-9 mild; 10-14 moderate; 15-21 severe): 0 Source: Developed by Drs. Bora Colmenares, Dahlia Tijerina, Yunior Porras and colleagues, with an educational sheila from [employer]. Review of Systems Const Denies chills, Denies fatigue, Denies fever(s) and Denies poor appetite Eyes Denies no additional complaints ENT Reports Normal hearing present Card Denies chest pain, Denies syncope, Denies rapid heart rate and Denies dyspnea Resp Denies cough and Denies dyspnea GI Denies change in stool character, Denies constipation, Denies diarrhea, Denies nausea and Denies vomiting Denies urinary frequency, Denies dysuria and Denies urinary urgency Neuro Reports Normal hearing present, Denies confusion and Denies syncope Psych Denies confusion Endo Denies fatigue Physical exam (Primary Care) Vital Signs: Last Vital Signs Pulse 86 05/26/23 14:12 BP 116/70 05/26/23 14:12 Pulse Ox 98 05/26/23 14:12 Oxygen Delivery Method Room Air 05/26/23 14:12 BMI result Body Mass Index 28.2 Tobacco/Smoking Status: Tobacco use Status Tobacco use date assessed 05/26/23 05/26/23 14:19 Patient Tobacco Use Status Never used Tobacco 05/26/23 14:19 e-Cigarette/Vaping Use Never Used 05/26/23 14:19 PHQ-9: PHQ-9 Score PHQ-9: Total score 0 05/26/23 15:12 Depression Screening Interpretation: Negative Thrive Assessment: Date of Thrive Assessment Date Thrive assessed 05/26/23 05/26/23 14:19 Currently or been in a relationship where the following occur: no concerns reported Const General: No confusion Orientation/consciousness: No confusion HENMT Head: Yes normocephalic and Yes atraumatic Eyes Conjunctivae: conjunctivae normal Chest Chest palpation & inspection: normal inspection of the chest Resp Effort & Inspection: normal respiratory effort Auscultation: clear to auscultation bilaterally, no crackles, no rhonchi and no wheezes Cardio Rate: regular rate Rhythm: regular rhythm Heart sounds: S1 normal heart sound present and S2 normal heart sound present Peripheral pulses: dorsalis pedis present GI Inspection: Yes normal to inspection Neuro General: No confusion Cranial nerves: Yes Normal hearing present Extrem General: No edema Assessment and Plan Assessment & Plan (1) Calf cramp: Code(s): R25.2 - Cramp and spasm Plan: CMP, mag and phos ordered to rule out electrolyte deficiency. Patient advised to drink more water dehydration could cause muscle cramping. Patient advised to seek emergency medical attention if she develops worsening unilateral calf pain, redness, swelling or warmth. Can take Tylenol or ibuprofen as needed for bilateral calf cramping. Patient requesting a note for work as she works on her feet, work note given. Plan Follow-up as needed. Orders: Orders Vitamin B12 and Folate Today Z13.21 - Encounter for screening for nutritional disorder Comprehensive Met. Panel Today R25.2 - Cramp and spasm Magnesium Today R25.2 - Cramp and spasm Phosphorus Today R25.2 - Cramp and spasm Vitamin D 25-OH Total Today Z13.21 - Encounter for screening for nutritional disorder Complete Blood Count Auto Diff Today Z13.0 - Encounter for screening for diseases of the blood and blood-forming organs and certain disorders involving t he immune mechanism Coding Level of Care Code Est Pt Level 3 (29941) Diagnoses Calf cramp R25.2 Additional Codes PHQ-9 - 31304 - PHQ-9 Billing: Y ([id number])
== END 2023-05-26 14:44 | disposition home or self-care (01) ==
PROVIDERS: PCP Internal Medicine; Visit Provider Nurse Practitioner Family
DX: R25.2 Cramp and spasm (principal)
CPT/HCPCS: 99213

== ENCOUNTER 2023-05-27 07:18 | Outpatient (REF) | payer OTHER, SELFPAY ==
[2023-05-27 07:35] LABS: MANUAL DIFF FLAG NO
[2023-05-27 08:04] LABS: Basophils Absolute Auto 0.1 X10*3/uL (0.0-0.2); Basophils Percent Auto 0.8 % (0-2); Eosinophils Absolute Auto 0.1 X10*3/uL (0.0-0.4); Eosinophils Percent Auto 1.6 % (0-4); Hematocrit 38.7 % (37.0-47.0); Hemoglobin 12.7 g/dl (12.0-16.0); Imm Gran Abs Auto 0.02 X10*3/uL (0.00-0.03); Imm Gran Pct Auto 0.2 % (0.0-0.4); Lymphocytes Absolute Auto 2.3 X10*3/uL (1.2-4.9); Mean Corpuscular HGB Conc 32.8 g/dl (31.0-35.0); Mean Corpuscular Hemoglobin 28.2 pg (27.0-33.0); Mean Corpuscular Volume 85.8 fL (80.0-98.0); Monocytes Absolute Auto 0.5 X10*3/uL (0.1-1.2); Neutrophils Absolute Auto 5.5 x10*3/uL (2.0-8.3); Neutrophils Percent Auto 64.4 % (45-73); Platelet Count 257 X10*3/uL (160-400); Red Blood Count 4.51 X10*6/uL (4.20-5.50); Red Cell Distribution Width 12.2 % (11.0-16.0); White Blood Count 8.5 X10*3/uL (4.8-10.8)
[2023-05-27 08:55] LABS: Alanine Aminotransferase 12 U/L (0-31); Albumin Level 3.9 g/dL (3.5-5.0); Alkaline Phosphatase 51 U/L (39-117); Anion Gap 11 (12-20); Aspartate Amino Transferase 16 U/L (5-31); Bilirubin Total 0.3 mg/dL (0.0-1.0); Blood Urea Nitrogen 16 mg/dL (9-16); Calcium 9.4 mg/dL (8.4-10.2); Carbon Dioxide 26 mmol/L (22-29); Chloride 107 mmol/L (96-108); Estimated Glomerular Filt Rate > 60; Glucose Random 87 mg/dL (60-115); Magnesium 2.1 mg/dL (1.6-2.6); Phosphorus 3.5 mg/dL (2.7-4.5); Potassium 4.5 mmol/L (3.3-5.1); Sodium 139 mmol/L (135-145); Total Protein 6.9 g/dL (6.5-8.0)
[2023-05-27 09:13] LABS: Vitamin D 25-OH Total 35.9 ng/mL (>30)
[2023-05-27 09:18] LABS: Folate 10.1 ng/mL (> or = 4.0); Vitamin B12 413 pg/mL (200-900)
== END 2023-05-27 07:19 | disposition home or self-care (01) ==
LOC: HO.LAB 07:18
PROVIDERS: PCP Internal Medicine; Visit Provider Nurse Practitioner Family
DX: Z13.0 Encounter for screening for diseases of the blood and blood-forming organs and certain disorders involving the immune mechanism (principal); Z13.21 Encounter for screening for nutritional disorder; R25.2 Cramp and spasm
CPT/HCPCS: 36415; 80053; 82306; 82607; 82746; 83735; 84100; 85025

== ENCOUNTER 2023-05-29 12:05 | Emergency (ER) | payer OTHER, SELFPAY ==
--- NOTE | ~2023-05-29 | US_ITS ---
EXAMINATION: US VENOUS ULTRASOUND WITH DOPPLER LOWER EXTREMITY, RIGHT CLINICAL INFORMATION: Cough pain and edema COMPARISON: None available. TECHNIQUE: Ultrasound of the deep veins is performed from the hip to the calf with compression sonography and color and pulse Doppler assessment. Spectral analysis with color-flow imaging is performed. FINDINGS: There is normal venous compression and respiratory variation and augmented flow. The visualized common femoral vein, superficial femoral vein, profunda femoral vein, popliteal vein. There is occlusive echogenic thrombus is identified in tibial peroneal trunk and single proximal posterior tibial vein, which are not compressible, revealed not vascular flow augmentation or respiratory variations. There is no evidence of Mukherjee's cyst. US/US venous duplex LE RT IMPRESSION: DVT demonstrated in the right lower extremity.
--- NOTE | 2023-05-29 12:06 | ED.GENADULT ---
HPI - General Adult General Chief complaint: General Medical Stated complaint: R calf pain Time Seen by Provider: 05/29/23 12:33 Source: patient Mode of arrival: ambulatory Limitations: no limitations History of Present Illness HPI narrative: 33 yo female with history of migraines and GERD presenting to the ER for evaluation of right calf pain and aching for the last 1 week. She reports that 1 week ago both legs became painful, but her left leg pain resolved by the end of the day. Reports that right calf pain has persisted intermittently, and is getting worse. Reports pain at rest and worsened by walking. Denies any chest pain or shortness of breath. Denies personal or family history of blood clots, smoking, recent travel, recent surgery. Reports having NuvaRing placed in January. [facility] OCPs. complaint: right calf pain Onset (ago): week(s) Location: lower extremity Radiation: proximal Severity: moderate Quality: aching Pain Consistency: intermittent Relieving factors: none Exacerbating factors: movement Associated symptoms: denies other symptoms Treatments prior to arrival: none Related Data Home Medications Medication Instructions Recorded Confirmed ibuprofen 400 mg tablet 400 mg PO TID 07/26/21 08/12/22 medroxyprogesterone 150 mg/mL 150 mg IM [id number] 06/10/22 08/12/22 intramuscular suspension (Depo-Provera) Previous Rx's Medication Instructions Recorded sumatriptan succinate 50 mg tablet 50 mg PO Q2-4H PRN migraine 02/12/22 (Imitrex) headache #10 tabs valacyclovir 500 mg tablet 500 mg PO DAILY #90 tabs 01/01/23 apixaban 5 mg (74 tabs) tablets in 5 mg PO BID #74 ea 05/29/23 a dose pack (Eliquis DVT-PE Treat 30D Start) Allergies Allergy/AdvReac Type Severity Reaction Status Date / Time No Known Allergies Allergy Verified 05/26/23 14:14 Review of Systems Review of Systems: Yes all other systems are reviewed and are negative [facility] Past Medical History Medical History GERD (gastroesophageal reflux disease) Migraine Surgical History History of breast lump/mass excision Family History Family History (Updated 05/26/23 @ 14:15 by Yuly Hernandez CMA) Father Cancer Hypertension FH: prostate cancer Mother Hypertension Substance abuse Paternal Grandmother Breast cancer Paternal Grandfather FH: testicular cancer Social History Social History Housing: Apartment Alcohol intake: never Patient Tobacco Use Status: Never used Tobacco Years Smoked: 2012 prn e-Cigarette/Vaping Use: Never Used Second Hand Smoke Exposure: No Advance Directives: No Advance Directives Information Provided: Yes service: No Current occupational status: employed Cognitive needs: No Hearing needs: No Vision needs: No Physical Exam ED Vital Signs: Vital Signs - 24 hr 05/29/23 12:08 Temperature 99.0 F Pulse Rate 70 Respiratory Rate 16 Blood Pressure 122/74 Pulse Oximetry 100 Oxygen Delivery Method Room Air BMI result Body Mass Index 29.1 Const General: cooperative, healthy appearing, comfortable and no acute distress Orientation/consciousness: patient oriented x3 Limitations: no limitations Resp Effort & Inspection: normal respiratory effort and able to speak in complete sentences Auscultation: clear to auscultation bilaterally Cardio Jugular venous distension: no JVD Rate: regular rate Neuro General: patient oriented x3 Extrem Other: Right leg inspection unremarkable. Tender to palpation along calf. Cool to touch. Tender with dorsiflexion of right foot. Sensation intact. Pedal pulse intact. Full active and passive range of motion. Strength 5/5. Right lower extremity: normal to inspection, full ROM and normal capillary refill Course Course Course Narrative: This is an RME: Additional HPI, ROS, PE not included below will be deferred to primary provider. 33 year old female presenting with atraumatic right calf pain that started a week ago. Pain is in the posterior aspect of her leg. She says the pain was intermittent but now is constant. On oral contraceptives. Medical Decision Making Medical Decision Making MDM Narrative: 33 year old female with history of migraines and GERD presented to ER with 1 week history of right calf pain, intermittent but worsening. She went to her PCP with same concerns on Saturday 05/26, and was instructed to get blood work, which resulted on 05/27, WNL. Came to [facility] today 05/29, and US of right lower extremity reveals distal DVT. No chest pain or SOB. VSS Given she is symptomatic, will treat. Prescribed apixaban and instructed patient to take every day for 3 months. Recommending hematology follow up and removal of Nuvaring. Differential Diagnosis Differential Diagnoses: The differential diagnosis associated with the presentation includes DVT, tendonitis, ankle sprain, leg cramp, dehydration Independent Interpretation I performed an independent interpretation of an: Ultrasound Interpretation: Ultrasound reviewed, clot in the distal veins appreciated, agree radiologist read Radiology Impression Discussion of test interpretation with radiology: I have reviewed the radiologist's reading. Radiologist Impression: EXAMINATION:? US VENOUS ULTRASOUND WITH DOPPLER LOWER EXTREMITY, RIGHT CLINICAL INFORMATION:? Cough pain and edema COMPARISON:? None available. TECHNIQUE: Ultrasound of the deep veins is performed from the hip to the calf with compression sonography and color and pulse Doppler assessment. Spectral analysis with color-flow imaging is performed. FINDINGS: There is normal venous compression and respiratory variation and augmented flow. The visualized common femoral vein, superficial femoral vein, profunda femoral vein, popliteal vein. There is occlusive echogenic thrombus is identified in tibial peroneal trunk and single proximal posterior tibial vein, which are not compressible, revealed not vascular flow augmentation or respiratory variations. There is no evidence of Mukherjee's cyst. US/US venous duplex LE RT IMPRESSION: DVT demonstrated in the right lower extremity. Prescription Management I considered prescription management with: Other (anticoagulation -NOAC) Critical Care Time Critical Care Time Critical Care Time: No Discharge Plan Discharge Clinical Impression: Acute deep vein thrombosis (DVT) of right lower extremity Patient Disposition: Home, Self-Care Instructions: Deep Vein Thrombosis (ED) Additional Instructions: Your ultrasound today showed there is a blood clot located in the veins in your calf is which is causing your symptoms. Take the prescribed anticoagulation as directed. This can increase the risk of bleeding. You will likely need to be on this for 3 months time. Recommend following up with your doctor, along with the vascular specialist. Call for an appointment. Elevate your leg and use a compression Fred wrap as needed for pain. Take Tylenol as needed for pain. While you are on the anticoagulation recommend avoiding use of NSAIDs like Tylenol, ibuprofen, Aleve. Recommend discontinuation of the NuvaRing. If you develop new or worsening symptoms call 911 or come back to the ER for further evaluation. Prescriptions: New Eliquis DVT-PE Treat 30D Start 5 mg (74 tabs) tablets,dose pack 5 mg PO BID Qty: 74 0RF No Action sumatriptan succinate [Imitrex] 50 mg tablet 50 mg PO Q2-4H PRN (Reason: migraine headache) Qty: 10 1RF Rx Instructions: do not exceed 4 doses per 24 hrs valacyclovir 500 mg tablet 500 mg PO DAILY Qty: 90 1RF ibuprofen 400 mg tablet 400 mg PO TID medroxyprogesterone [Depo-Provera] 150 mg/mL suspension 150 mg IM [id number] Referrals: [facility] Vascular Services [Provider Group] (distal RLE DVT) Po,Isi Garcia MD [Primary Care Provider] - Stand Alone Forms: Work/School Release
[2023-05-29 12:08] VITALS: BP 122/74; PULSE 70; RESP 16; TEMP 37.2; O2SAT 100; BMI 29.1
== END 2023-05-29 15:18 | disposition home or self-care (01) ==
PROVIDERS: Emergency Provider Emergency Medicine; PCP Internal Medicine
DX: I82.401 Acute embolism and thrombosis of unspecified deep veins of right lower extremity (principal); R60.0 Localized edema; Z79.899 Other long term (current) drug therapy
CPT/HCPCS: 93971; 99281; 99284

== ENCOUNTER → 2023-06-20 09:13 | Outpatient (BNV) | payer OTHER, SELFPAY | PROVIDERS: PCP Internal Medicine; Visit Provider Internal Medicine Medical Oncology | DX: I82.401 Acute embolism and thrombosis of unspecified deep veins of right lower extremity (principal); Z79.3 Long term (current) use of hormonal contraceptives; Z79.01 Long term (current) use of anticoagulants | CPT/HCPCS: 99204; 99213; 99214 ==

== ENCOUNTER 2023-06-22 08:34 | Outpatient (AMB) | payer OTHER, SELFPAY ==
[2023-06-22 08:43] VITALS: BP 110/72; PULSE 78; O2SAT 98; BMI 29.1
--- NOTE | 2023-06-22 08:43 | MHC.PC.OV ---
Vital Signs 06/22/23 08:43 Height 5 ft 2 in Weight 159 lb BMI 29.1 BP 110/72 Blood Pressure Location Lt brachial Position Sitting Pulse 78 Pulse Source Pulse Oximeter Pulse Oximetry (%) 98 Oxygen Delivery Method Room Air Intake Visit Reasons: [facility]-05/29-R calf pain Intake Note: Patient here for [facility] ED follow up 05/29 right calf pain Meat Stuffer Required: No Accompanied by: Self / Same As Patient Allergies No Known Allergies Allergy (Verified 06/22/23 08:45) Tobacco use date assessed: 05/26/23 Dental Screening Dental Screen Date: 06/22/23 Did you have a dental visit in the last 12 months?: No Did you have a dental problem in the last 6 months where you did not have access to dental care?: No Was dental information given to patient?: Patient has dentist HPI HPI Comments History of Present Illness Details 33-year-old female past medical history significant for GERD, migraines, anemia. Patient Dr. Iglesias patient presents today for emergency room follow-up. Patient was seen by this be CP on 05/26/2023 where she reported bilateral calf pain, left-sided calf pain resolved by the end the day and patient reports that the right sided calf pain persisted. Patient on nuvaring control and reported the right calf pain and worsened her worse with ambulation. Patient presented to the emergency room on 05/29/23. Right leg venous Doppler showed DVT. Patient was started on Eliquis and referred to follow-up with clinical practice consultant. Patient was seen by Dr. Hollins hematology on 06/20/2023, hyper coagulable workup was drawn on patient this patient recently reported that she just found out her mother and her grandmother has a history blood clots. Patient states her new ring was removed and she is not currently taking control at this time. Patient advised to continue on Eliquis 5 mg b.i.d. x3 months and then follow-up with Hematology. Refill sent on Eliquis. Patient denies any right calf pain at this time and states it has improved since being on the blood thinner however if she is on her feet for long time she will get a cramping pain in the right calf. [facility] Medical History GERD (gastroesophageal reflux disease) Migraine Surgical History History of breast lump/mass excision Family History Father Cancer Hypertension FH: prostate cancer Mother Hypertension Substance abuse Paternal Grandmother Breast cancer Paternal Grandfather FH: testicular cancer Social History Housing: Apartment Alcohol intake: never Patient Tobacco Use Status: Never used Tobacco Years Smoked: 2012 prn e-Cigarette/Vaping Use: Never Used Second Hand Smoke Exposure: No service: No Current occupational status: employed Current occupational exposures/hazards: No Cognitive needs: No Hearing needs: No Vision needs: No Questionnaire Thrive Questionnaire Date Thrive assessed: 05/26/23 MERCY-7 AMB Questionnaire MERCY-7 Date MERCY - 7 assessed: 05/26/23 Source: Developed by Drs. Bora Colmenares, Dahlia Tijerina, Yunior Porras and colleagues, with an educational sheila from [employer]. Review of Systems Const Denies chills, Denies fatigue, Denies fever(s) and Denies poor appetite Eyes Denies no additional complaints ENT Reports Normal hearing present Card Denies chest pain, Denies syncope, Denies rapid heart rate and Denies dyspnea Resp Denies cough and Denies dyspnea GI Denies change in stool character, Denies constipation, Denies diarrhea, Denies nausea and Denies vomiting Denies urinary frequency, Denies dysuria and Denies urinary urgency Neuro Reports Normal hearing present, Denies confusion and Denies syncope Psych Denies confusion Endo Denies fatigue Physical exam (Primary Care) Vital Signs: Last Vital Signs Pulse 78 06/22/23 08:43 BP 110/72 06/22/23 08:43 Pulse Ox 98 06/22/23 08:43 Oxygen Delivery Method Room Air 06/22/23 08:43 BMI result Body Mass Index 29.1 Tobacco/Smoking Status: Tobacco use Status Tobacco use date assessed 05/26/23 06/22/23 08:48 Patient Tobacco Use Status Never used Tobacco 06/22/23 08:48 e-Cigarette/Vaping Use Never Used 06/22/23 08:48 Thrive Assessment: Date of Thrive Assessment Date Thrive assessed 05/26/23 06/22/23 08:48 Const General: No confusion Orientation/consciousness: No confusion HENMT Head: Yes normocephalic and Yes atraumatic Eyes Conjunctivae: conjunctivae normal Chest Chest palpation & inspection: normal inspection of the chest Resp Effort & Inspection: normal respiratory effort Auscultation: clear to auscultation bilaterally, no crackles, no rhonchi and no wheezes Cardio Rate: regular rate Rhythm: regular rhythm Heart sounds: S1 normal heart sound present and S2 normal heart sound present Peripheral pulses: dorsalis pedis present GI Inspection: Yes normal to inspection Neuro General: No confusion Cranial nerves: Yes Normal hearing present Extrem General: No edema Assessment and Plan Assessment & Plan (1) Right leg DVT: Code(s): I82.401 - Acute embolism and thrombosis of unspecified deep veins of right lower extremity Plan: Continue on Eliquis 5 mg b.i.d. Refill sent on Eliquis. Continue to follow with Hematology. Plan Keep scheduled follow-up PCP or follow-up sooner if needed. Medications: New apixaban (Eliquis) 5 mg PO BID 180 tabs 0RF I82.401 - Acute embolism and thrombosis of unspecified deep veins of right lower extremity Discontinued apixaban (Eliquis DVT-PE Treat 30D Start) Discontinued Reason: Doctor's Order 5 mg PO BID 74 ea 0RF Coding Level of Care Code Est Pt Level 3 (77882) Diagnoses Right leg DVT I82.401
== END 2023-06-22 09:10 | disposition home or self-care (01) ==
PROVIDERS: PCP Internal Medicine; Visit Provider Nurse Practitioner Family
DX: I82.401 Acute embolism and thrombosis of unspecified deep veins of right lower extremity (principal)
CPT/HCPCS: 99213

== ENCOUNTER 2023-08-16 09:01 | Outpatient (AMB) | payer OTHER, SELFPAY ==
[2023-08-16 09:02] VITALS: BP 114/68; PULSE 72; O2SAT 98; BMI 28.0
--- NOTE | 2023-08-16 09:02 | A.OFFPC_ITS ---
Vital Signs 08/16/23 09:02 Height 5 ft 2 in Weight 153 lb BMI 28.0 BP 114/68 Blood Pressure Location Lt brachial Position Sitting Pulse 72 Pulse Source Pulse Oximeter Pulse Oximetry (%) 98 Oxygen Delivery Method Room Air Intake Visit Reasons: Annual Exam Allergies No Known Allergies Allergy (Verified 08/16/23 09:02) Medication List - Last Reconciled 08/16/23 by Isi Iglesias MD apixaban (Eliquis) 5 mg PO BID sumatriptan succinate (Imitrex) 50 mg PO Q2-4H PRN valacyclovir 500 mg PO DAILY PRN Tobacco use date assessed: 05/26/23 Dental Screening Dental Screen Date: 08/16/23 Did you have a dental visit in the last 12 months?: Yes Did you have a dental problem in the last 6 months where you did not have access to dental care?: No Was dental information given to patient?: Patient has dentist HPI Annual Exam HPI Details 33-year-old overweight female with a his tory of GERD migraine right leg DVT coming in for physical exam last seen 06/22/2023. Review of the notes was seen by hematology oncology pain on the right calf in May 26 2023 ultrasound of the right leg revealed DVT on anticoagulant Eliquis mom was recently diagnosed with DVT she was using control pills hypercoagulable workup done seen in June 2023 advise 3 months follow-up ultrasound, patient has been exposed to female hormone and declined vaccine [facility] Medical History (Updated 08/16/23 @ 09:28 by Isi Iglesias MD) Calf cramp Hearing difficulty of both ears Blood pressure elevated without history of HTN Mouth sore Gastroenteritis Anemia Tiredness Palpitations Facial weakness Otitis media Migraine GERD (gastroesophageal reflux disease) Surgical History History of breast lump/mass excision Family History (Updated 08/16/23 @ 09:30 by Isi Iglesias MD) Father Cancer Hypertension FH: prostate cancer Mother Hypertension Substance abuse DVT (deep venous thrombosis) Paternal Grandmother Breast cancer Paternal Grandfather FH: testicular cancer Stomach cancer Maternal Grandmother DVT (deep venous thrombosis) Social History (Updated 08/16/23 @ 09:30 by Isi Iglesias MD) Housing: Apartment Alcohol intake: current Patient Tobacco Use Status: Never used Tobacco Years Smoked: 2012 prn e-Cigarette/Vaping Use: Never Used Second Hand Smoke Exposure: No service: No Current occupational status: employed Current occupational exposures/hazards: No Cognitive needs: No Hearing needs: No Vision needs: No Questionnaire PHQ-9 Over the last 2 weeks, how often have you been bothered by any of the following problems? 1. Little interest or pleasure in doing things: not at all 2. Feeling down, depressed, or hopeless: not at all 3. Trouble falling or staying asleep, or sleeping too much: not at all 4. Feeling tired or having little energy: not at all 5. Poor appetite or overeating: not at all 6. Feeling bad about yourself - or that you are a failure or have let yourself or your family down: not at all 7. Trouble concentrating on things, such as reading the newspaper or watching television: not at all 8. Moving or speaking so slowly that other people could have noticed. Or the opposite - being so fidgety or restless that you have been moving around a lot more than usual: not at all 9. Thoughts that you would be better off or of hurting yourself in some way: not at all Total score: 0 Depression Screening Interpretation: Negative Depression Screening Done: Yes Source: Developed by Drs. Bora Colmenares, Yunior Marie and colleagues, with an educational sheila from [employer]. Thrive Questionnaire Date Thrive assessed: 05/26/23 AUDIT C Alcohol Use Questionnaire (AUDIT-C) 1. How often do you have a drink containing alcohol?: Never 3. How often do you have six or more drinks on one occasion?: Never Total Score: 0 MERCY-7 AMB Questionnaire MERCY-7 Date MERCY - 7 assessed: 05/26/23 Source: Developed by Dahlia Jose Kurt Kroenke and colleagues, with an educational sheila from [employer]. Review of Systems Const Denies poor appetite and Denies weakness Eyes Denies no additional complaints ENT Reports Normal hearing present, Denies dizziness, Denies nasal congestion, Denies tinnitus and Denies sore throat Card Denies chest pain, Denies syncope, Denies rapid heart rate and Denies dyspnea Resp Denies cough and Denies dyspnea GI Denies change in stool character, Reports constipation, Denies diarrhea, Denies nausea and Denies vomiting Denies urinary frequency, Denies difficulty voiding and Denies dysuria Neuro Reports Normal hearing present, Denies confusion, Denies dizziness, Denies syncope and Denies weakness Psych Denies confusion Physical exam (Primary Care) Vital Signs: Last Vital Signs Pulse 72 08/16/23 09:02 BP 114/68 08/16/23 09:02 Pulse Ox 98 08/16/23 09:02 Oxygen Delivery Method Room Air 08/16/23 09:02 BMI result Body Mass Index 28.0 Tobacco/Smoking Status: Tobacco use Status Tobacco use date assessed 05/26/23 08/16/23 09:04 Patient Tobacco Use Status Never used Tobacco 08/16/23 09:04 e-Cigarette/Vaping Use Never Used 08/16/23 09:04 PHQ-9: PHQ-9 Score PHQ-9: Total score 0 08/16/23 09:07 Depression Screening Interpretation: Negative Thrive Assessment: Date of Thrive Assessment Date Thrive assessed 05/26/23 08/16/23 09:04 Const General: No confusion Orientation/consciousness: No confusion HENMT Head: Yes normocephalic Ears: external ears normal and TM's normal bilaterally Face and sinus: Yes normal facial exam Mouth: moist mucous membranes Throat: Yes tonsils normal Eyes Conjunctivae: conjunctivae normal Pupils: Equal, round and reactive pupils present and Pupil accommodation reflex normal Direct Ophthalmoscopy: normal light reflex Neck Neck: No lymphadenopathy Thyroid: Thyroid normal Chest Chest palpation & inspection: normal inspection of the chest Resp Effort & Inspection: normal respiratory effort and no audible wheezes Auscultation: clear to auscultation bilaterally, no crackles, no wheezes and lung sounds not diminished Cardio Rate: regular rate Rhythm: regular rhythm Peripheral pulses: radial pulses present and dorsalis pedis present GI Palpation (GI): no masses Auscultation: normal bowel sounds and normoactive bowel sounds Rectal Exam - Female: deferred Skin General skin exam: no rashes or lesions noted Rashes: no rashes Neuro General: No confusion Cranial nerves: Yes Equal, round and reactive pupils present and Yes Normal hearing present Cognition (Neuro): normal cognition Gait exam (Neuro): Normal gait present Motor exam (neuro): 5/5 motor strength present throughout Deep tendon reflexes (DTR's): Right brachioradialis reflex intensity grade: 2+, Left brachioradialis reflex intensity grade: 2+, Right patellar reflex intensity grade: 2+ and Left patellar reflex intensity grade: 2+ Extrem General: No edema Assessment and Plan Assessment & Plan (1) Annual physical exam: Code(s): Z00.00 - Encounter for general adult medical examination without abnormal findings (2) Right leg DVT: Comment: May 2023 Code(s): I82.401 - Acute embolism and thrombosis of unspecified deep veins of right lower extremity Plan: Started anticoagulation with Eliquis 3 months to have another ultrasound (3) GERD (gastroesophageal reflux disease): Code(s): K21.9 - Gastro-esophageal reflux disease without esophagitis Plan: Avoid the foods that causes that usually spicy foods, tomato products, juices, coffee, soda and foods that your sensitive to. After eating do not lie down, allow 3-4 hours before in lie down. And keep the head of bed above 30 degrees to avoid the acid from going up. (4) Migraine: Code(s): G43.909 - Migraine, unspecified, not intractable, without status migrainosus Qualifiers: Migraine type: without aura Status migrainosus presence: without status migrainosus Intractability: not intractable Qualified Code(s): G43.009 - Migraine without aura, not intractable, without status migrainosus Plan: Continue with migraine medication as needed (5) Overweight (BMI 25.0-29.9): Code(s): E66.3 - Overweight Plan: Diet and exercise Coding Level of Care Code Est Pt Prev Care [id number]) Diagnoses Annual physical exam Z00.00 Right leg DVT I82.401 GERD (gastroesophageal reflux disease) K21.9 Migraine without aura and without status migrainosus, not intractable G43.009 Migraine type: without aura Status migrainosus presence: without status migrainosus Intractability: not intractable Overweight (BMI 25.0-29.9) E66.3 Additional Codes PHQ-9 - 26679 - PHQ-9 Billing: ([id number])
== END 2023-08-16 09:49 | disposition home or self-care (01) ==
PROVIDERS: Visit Provider Internal Medicine
DX: Z00.00 Encounter for general adult medical examination without abnormal findings (principal); I82.401 Acute embolism and thrombosis of unspecified deep veins of right lower extremity; K21.9 Gastro-esophageal reflux disease without esophagitis; G43.009 Migraine without aura, not intractable, without status migrainosus; E66.3 Overweight
CPT/HCPCS: 99395

== ENCOUNTER 2023-09-08 08:18 | Outpatient (REF) | payer OTHER, SELFPAY ==
--- NOTE | ~2023-09-08 | US_ITS ---
EXAMINATION: US VENOUS ULTRASOUND WITH DOPPLER LOWER EXTREMITY, RIGHT CLINICAL INFORMATION: Right lower extremity DVT, follow-up COMPARISON: 05/29/2023 TECHNIQUE: Ultrasound of the deep veins is performed from the hip to the calf with compression sonography and color and pulse Doppler assessment. Spectral analysis with color-flow imaging is performed. FINDINGS: There is normal venous compression and respiratory variation and augmented flow. The visualized common femoral vein, superficial femoral vein, profunda femoral vein, popliteal vein, and the trifurcation region shows no evidence of deep venous thrombosis. There is no significant popliteal fossa cyst. Interval resolution seen of the previously noted thrombus within the calf veins If the patient's symptoms persist, followup ultrasound in 5 days 7 days might be of value to exclude proximal propagation from a non-visualized calf vein. US/US venous duplex LE RT IMPRESSION: No DVT demonstrated in the right lower extremity.
[2023-09-08 09:14] LABS: HCG Quantitative 241 mIU/mL
== END 2023-09-08 08:19 | disposition home or self-care (01) ==
LOC: HO.US 08:18
PROVIDERS: PCP Internal Medicine; Referring Provider Physician Assistant Medical; Visit Provider Internal Medicine Medical Oncology
DX: R53.83 Other fatigue (principal); I82.401 Acute embolism and thrombosis of unspecified deep veins of right lower extremity
CPT/HCPCS: 36415; 84702; 93971

== ENCOUNTER 2023-09-27 21:06 | Emergency (ER) | payer OTHER, SELFPAY ==
--- NOTE | ~2023-09-27 | US_ITS ---
EXAMINATION: US OBSTETRICAL ULTRASOUND CLINICAL INFORMATION: Vaginal bleeding. Rule out ectopic COMPARISON: None available. LMP: 08/10/2023. Gestational age by maternal dates is 6 weeks and 6 days. Estimated date of delivery by maternal dates is 05/16/2024. TECHNIQUE: Transabdominal imaging of pelvis is performed. FINDINGS: There is a single intrauterine gestational sac with visible yolk sac, embryo/fetus, and cardiac activity. There is no significant subchorionic hemorrhage or hematoma. HR: Unable to measure heart rate due to sporadic heartbeats.. CRL (crown rump length): 0.41 cm (6 weeks and 1 day +/- 4 days). WALTER (estimated date of delivery): 05/21/2024 +/- 4 days. MATERNAL ADNEXA: The right maternal ovary measures 2.4 x 1.2 x 1.0 cm. There is a small calcification visualized. The left maternal ovary measures 3.2 x 2.0 x 2.2 cm. There is small corpus luteal cyst measuring 1.90 x 0.9 x 0.5 cm and calcification noted. There is no significant maternal adnexal mass. No maternal pelvic ascites. US/US OB pelvic and transvaginal IMPRESSION: 1. Single intrauterine gestation with ultrasound gestational age of 6 weeks and 1 day +/- 4 days. 2. Estimated date of delivery is 05/21/2024 +/- 4 days. 3. No maternal adnexal mass or pelvic ascites.
[2023-09-27 21:14] VITALS: BP 113/44; PULSE 80; RESP 18; TEMP 36.8; O2SAT 100; BMI 25.6
[2023-09-27 22:27] LABS: MANUAL DIFF FLAG NO
[2023-09-27 22:32] LABS: Basophils Absolute Auto 0.1 X10*3/uL (0.0-0.2); Basophils Percent Auto 0.6 % (0-2); Eosinophils Absolute Auto 0.1 X10*3/uL (0.0-0.4); Eosinophils Percent Auto 1.3 % (0-4); Hematocrit 33.4 % (37.0-47.0); Hemoglobin 10.9 g/dl (12.0-16.0); Imm Gran Abs Auto 0.01 X10*3/uL (0.00-0.03); Imm Gran Pct Auto 0.1 % (0.0-0.4); Lymphocytes Absolute Auto 2.6 X10*3/uL (1.2-4.9); Lymphocytes Percent Auto 30.8 % (20-40); Mean Corpuscular HGB Conc 32.6 g/dl (31.0-35.0); Mean Corpuscular Volume 85.9 fL (80.0-98.0); Mean Platelet Volume 8.9 fL (9.4-12.3); Monocytes Absolute Auto 0.8 X10*3/uL (0.1-1.2); Monocytes Percent Auto 8.9 % (2-11); Neutrophils Percent Auto 58.3 % (45-73); Platelet Count 236 X10*3/uL (160-400); Red Blood Count 3.89 X10*6/uL (4.20-5.50); Red Cell Distribution Width 12.9 % (11.0-16.0); White Blood Count 8.6 X10*3/uL (4.8-10.8)
[2023-09-27 22:33] LABS: Appearance Urine Clear; Color Urine Yellow; Glucose Urine UA Negative (Negative); Leukocyte Esterase Urine Negative (Negative); Nitrite Urine Negative (Negative); PH 7.5 (5.0-9.0); Specific Gravity - Urine >= 1.030 (1.005-1.025); Urine Blood Negative (Negative); Urine Ketones Negative (Negative); Urine Protein Negative (Neg-Trace)
[2023-09-27 22:37] LABS: UPreg QC Valid YES; Urine Pregnancy POSITIVE (NEGATIVE)
[2023-09-27 22:44] VITALS: BP 101/55; PULSE 80; RESP 16; TEMP 36.9; O2SAT 96
[2023-09-27 22:46] LABS: Alanine Aminotransferase 16 U/L (0-31); Albumin Level 3.8 g/dL (3.5-5.0); Alkaline Phosphatase 43 U/L (39-117); Anion Gap 10 (12-20); Aspartate Amino Transferase 18 U/L (5-31); Bilirubin Total 0.2 mg/dL (0.0-1.0); Blood Urea Nitrogen 11 mg/dL (9-16); Calcium 8.9 mg/dL (8.4-10.2); Carbon Dioxide 22 mmol/L (22-29); Chloride 109 mmol/L (96-108); Creatinine Clr Calc Pharmacy 123.6; Estimated Glomerular Filt Rate > 60; Glucose Random 92 mg/dL (60-115); Potassium 3.8 mmol/L (3.3-5.1); Sodium 137 mmol/L (135-145); Total Protein 6.5 g/dL (6.5-8.0)
--- NOTE | 2023-09-27 23:06 | ED.PREGNANCY ---
HPI - General Chief complaint: Vaginal Bleeding Stated complaint: vaginal bleeding, Time Seen by Provider: 09/27/23 21:32 Source: patient Mode of arrival: ambulatory History of Present Illness HPI Narrative: 33-year-old female, presents with vaginal spotting noted while she was showering and reports that she is approximately 7 weeks gestation and reports discomfort in the left ovary that comes and goes. 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 Patient states that she stops taking the Lovenox 2 days ago due to concerns for placental abruption. Related Data Home Medications Medication Instructions Recorded Confirmed valacyclovir 500 mg tablet 500 mg PO DAILY PRN Cold Sores 08/16/23 09/11/23 Previous Rx's Medication Instructions Recorded apixaban 5 mg tablet (Eliquis) 5 mg PO BID #180 tabs 06/22/23 sumatriptan succinate 50 mg tablet 50 mg PO Q2-4H PRN migraine 07/24/23 (Imitrex) headache #10 tabs enoxaparin 40 mg/0.4 mL 40 mg (0.4 mL) subcut DAILY #90 mL 09/11/23 subcutaneous syringe (Lovenox) Allergies Allergy/AdvReac Type Severity Reaction Status Date / Time No Known Allergies Allergy Verified 09/11/23 13:29 Review of Systems Review of Systems: Pertinent positives and negatives as stated in HPI [facility] Past Medical History Source: nursing notes reviewed Medical History Calf cramp Hearing difficulty of both ears Blood pressure elevated without history of HTN Mouth sore Gastroenteritis Anemia Tiredness Palpitations Facial weakness Otitis media Migraine GERD (gastroesophageal reflux disease) Surgical History History of breast lump/mass excision Family History Family History Father Cancer Hypertension FH: prostate cancer Mother Hypertension Substance abuse DVT (deep venous thrombosis) Paternal Grandmother Breast cancer Paternal Grandfather FH: testicular cancer Stomach cancer Maternal Grandmother DVT (deep venous thrombosis) Social History Social History Housing: Apartment Alcohol intake: current Patient Tobacco Use Status: Never used Tobacco Years Smoked: 2012 prn e-Cigarette/Vaping Use: Never Used Second Hand Smoke Exposure: No Advance Directives: No Advance Directives Information Provided: No Patient : Yes service: No Current occupational status: employed Current occupational exposures/hazards: No Cognitive needs: No Hearing needs: No Vision needs: No Physical Exam Vital Signs: Vital Signs: Last Vital Signs Temp 98.4 F 09/27/23 22:44 Pulse 80 09/27/23 22:44 Resp 16 09/27/23 22:44 BP 101/55 L 09/27/23 22:44 Pulse Ox 96 09/27/23 22:44 O2 Del Method Room Air 09/27/23 22:44 BMI result Body Mass Index 25.6 VITAL SIGNS: Reviewed. GENERAL: Well developed, well nourished, in no acute distress. HEAD: Normocephalic/atraumatic EYES: PERRLA, EOMI EARS: Ext canals without abnormality NOSE: Nares patent bilateral OROPHARYNX: no oral lesions noted, posterior pharynx clear NECK: Supple, no adenopathy LUNGS: Normal breath sounds. No adventitious sounds or accessory muscle use. SpO2<96> CARDIOVASCULAR: Regular rate and rhythm without noted murmurs ABDOMEN: Soft, non-tender, non-distended with bowel sounds. MUSCULOSKELETAL: No tenderness, deformities, or effusions noted on gross inspection. EXTREMITIES: No cyanosis, clubbing or edema. SKIN: Inspection of the skin reveals no rashes NEUROLOGIC: Alert and oriented x 4. Strength and sensation to light touch were grossly intact x 4. Medical Decision Making Medical Decision Making MDM Narrative: 33-year-old female with history and clinical presentation, DDX: SAB, ectopic, UTI, viral illness Reviewed all investigations and hematologic indices do not demonstrate leukocytosis or thrombocytopenia there is a noted normocytic anemia. Chemistry indices are grossly within normal limits without demonstrated MATHEW/electrolyte or liver enzyme derangements. Urinalysis negative for UTI or hematuria and urine is positive. Ob ultrasound demonstrates IUP of 6.1. I had an extensive discussion with the patient regarding the use of Lovenox especially given the fact that is considered to be a hypercoagulable status, we discussed relative risks and benefits, I reassured the patient that there are many women who require Lovenox during the in that this is not been associated with any increase in placental abruption in this population. Patient is otherwise discharged home to continue with Lovenox injections, vitamins. Differential Diagnosis Differential Diagnoses: The differential diagnosis associated with the presentation includes Admission/Observation Consideration of admission/observation: Escalation of care including admission/observation considered Please see the discussion above Lab Data MDM Lab Attestation statement: I reviewed the patient's lab results. Please see the discussion above 09/27/23 Unknown 09/27/23 Unknown Labs: Lab Results 09/27/23 Range/Units Unknown WBC 8.6 (4.8-10.8) X10*3/uL RBC 3.89 L (4.20-5.50) X10*6/uL Hgb 10.9 L (12.0-16.0) g/dl Hct 33.4 L (37.0-47.0) % MCV 85.9 (80.0-98.0) fL MCH 28.0 (27.0-33.0) pg MCHC 32.6 (31.0-35.0) g/dl RDW 12.9 (11.0-16.0) % Plt Count 236 (160-400) X10*3/uL MPV 8.9 L (9.4-12.3) fL Immature Gran % (Auto) 0.1 (0.0-0.4) % Neut % (Auto) 58.3 (45-73) % Lymph % (Auto) 30.8 (20-40) % [place] % (Auto) 8.9 (2-11) % Eos % (Auto) 1.3 (0-4) % Baso % (Auto) 0.6 (0-2) % Lymph # (Auto) 2.6 (1.2-4.9) X10*3/uL [place] # (Auto) 0.8 (0.1-1.2) X10*3/uL Eos # (Auto) 0.1 (0.0-0.4) X10*3/uL Baso # (Auto) 0.1 (0.0-0.2) X10*3/uL Abs Immat Gran (auto) 0.01 (0.00-0.03) X10*3/uL Absolute Neuts (auto) 5.0 (2.0-8.3) x10*3/uL Absolute Nucleated RBC 0.000 (0.0-0.012) X10*3/uL Nucleated RBC % (auto) 0.0 (0.0-0.2) /100WBC Sodium 137 (135-145) mmol/L Potassium 3.8 (3.3-5.1) mmol/L Chloride 109 H (96-108) mmol/L Carbon Dioxide 22 (22-29) mmol/L Anion Gap 10 L (12-20) BUN 11 (9-16) mg/dL Creatinine 0.60 (0.5-1.4) mg/dL Estim Creat Clear Calc 123.6 Estimated GFR > 60 Random Glucose 92 (60-115) mg/dL Calcium 8.9 D (8.4-10.2) mg/dL Total Bilirubin 0.2 (0.0-1.0) mg/dL AST 18 (5-31) U/L ALT 16 (0-31) U/L Alkaline Phosphatase 43 (39-117) U/L Total Protein 6.5 (6.5-8.0) g/dL Albumin 3.8 (3.5-5.0) g/dL Urine Color Yellow Urine Appearance Clear Urine pH 7.5 (5.0-9.0) Ur Specific [place] >= 1.030 H (1.005-1.025) Urine Protein Negative (Neg-Trace) mg/dL Urine Glucose (UA) Negative (Negative) mg/dL Urine Ketones Negative (Negative) mg/dL Urine Blood Negative (Negative) Urine Nitrite Negative (Negative) Ur Leukocyte Esterase Negative (Negative) Urine Test POSITIVE H (NEGATIVE) Radiology Impression Discussion of test interpretation with radiology: I have reviewed the radiologist's reading. Radiologist Impression: Please see the discussion above External Record Review External record reviewed: Office record, Outpatient record and Prior outpatient labs Chronic Conditions Patient?s care impacted by: Other DVT Critical Care Time Critical Care Time Critical Care Time: Yes Total Critical Care Time: 30 Attestation: I personally attest to this time spent taking care of the patient. Discharge Plan Discharge Clinical Impression: , Right leg DVT, First trimester bleeding Patient Disposition: Home, Self-Care Instructions: (ED), Blood Thinners (ED) Additional Instructions: 1. I recommend that you continue with the Lovenox as discussed with your resident care technician. 2. Please follow-up with your manager managing as scheduled. 3. Please do not hesitate to return to the emergency room should you experience any increase in vaginal bleeding, especially if associated with abdominal pelvic pain. Prescriptions: No Action sumatriptan succinate [Imitrex] 50 mg tablet 50 mg PO Q2-4H PRN (Reason: migraine headache) Qty: 10 1RF Rx Instructions: do not exceed 4 doses per 24 hrs enoxaparin [Lovenox] 40 mg/0.4 mL Syringe 40 mg SUBCUT DAILY Qty: 90 4RF valacyclovir 500 mg tablet 500 mg PO DAILY PRN (Reason: Cold Sores) Eliquis 5 mg tablet 5 mg PO BID Qty: 180 0RF Referrals: Po,Isi Garcia MD [Primary Care Provider] - Hira Hollins MD [Physician] -
[2023-09-27 23:11] LABS: HCG Quantitative 94239 mIU/mL
== END 2023-09-27 23:56 | disposition home or self-care (01) ==
PROVIDERS: Emergency Provider Student in an Organized Health Care Education/Training Program; PCP Internal Medicine
DX: O26.851 Spotting complicating pregnancy, first trimester (principal); O22.31 Deep phlebothrombosis in pregnancy, first trimester; I82.401 Acute embolism and thrombosis of unspecified deep veins of right lower extremity; O99.011 Anemia complicating pregnancy, first trimester; D64.9 Anemia, unspecified; Z79.01 Long term (current) use of anticoagulants; Z3A.01 Less than 8 weeks gestation of pregnancy
CPT/HCPCS: 36415; 76801; 76817; 80053; 81003; 81025; 84702; 85025; 99284

== ENCOUNTER 2024-02-14 14:09 | Outpatient (AMB) | payer OTHER, SELFPAY ==
--- NOTE | 2024-02-14 14:07 | A.OFFPC_ITS ---
Vital Signs 02/14/24 14:09 Height 5 ft 3 in Intake Visit Reasons: Deep vein thrombosis Allergies No Known Allergies Allergy (Verified 01/01/24 16:08) Tobacco use date assessed: 05/26/23 Dental Screening Dental Screen Date: 02/14/24 Did you have a dental visit in the last 12 months?: Yes Did you have a dental problem in the last 6 months where you did not have access to dental care?: No Was dental information given to patient?: Patient has dentist HPI Deep vein thrombosis HPI Details 34-year-old female with a history of wendy da GERD and right leg DVT. Last seen in August 2023. Review of the notes from patient was seen by the Hematology Oncology in January 2024 anticoagulation Eliquis was stopped due to and placed on Lovenox but she had a miscarriage in November and this was stopped also. Patient is back to Eliquis hematology workup was nonrevealing.lives [place] , asking for the backyard of apartment is open. wants it closed. PAtient states does home daycare. PAtient states anxiety but decline referral. migraine doing good. [facility] History Calf cramp Hearing difficulty of both ears Blood pressure elevated without history of HTN Mouth sore Gastroenteritis Anemia Tiredness Palpitations Facial weakness Otitis media Migraine GERD (gastroesophageal reflux disease) Surgical History History of breast lump/mass excision Family History Father Cancer Hypertension FH: prostate cancer Mother Hypertension Substance abuse DVT (deep venous thrombosis) Paternal Grandmother Breast cancer Paternal Grandfather FH: testicular cancer Stomach cancer Maternal Grandmother DVT (deep venous thrombosis) Social History Housing: Apartment Alcohol intake: current Alcohol intake frequency: does not drink Patient Tobacco Use Status: Never used Tobacco Years Smoked: 2012 prn e-Cigarette/Vaping Use: Never Used Second Hand Smoke Exposure: No service: No Current occupational status: employed Current occupational exposures/hazards: No Cognitive needs: No Hearing needs: No Vision needs: No Questionnaire PHQ-9 Over the last 2 weeks, how often have you been bothered by any of the following problems? 1. Little interest or pleasure in doing things: not at all 2. Feeling down, depressed, or hopeless: not at all 3. Trouble falling or staying asleep, or sleeping too much: not at all 4. Feeling tired or having little energy: not at all 5. Poor appetite or overeating: not at all 6. Feeling bad about yourself - or that you are a failure or have let yourself or your family down: not at all 7. Trouble concentrating on things, such as reading the newspaper or watching television: not at all 8. Moving or speaking so slowly that other people could have noticed. Or the opposite - being so fidgety or restless that you have been moving around a lot more than usual: not at all 9. Thoughts that you would be better off or of hurting yourself in some way: not at all Total score: 0 Depression Screening Interpretation: Negative Depression Screening Done: Yes Source: Developed by Drs. Bora Colmenares, Dahlia Tijerina, Yunior Porras and colleagues, with an educational sheila from [employer]. Thrive Questionnaire Date Thrive assessed: 02/14/24 I am a: Patient What is your living situation today?: I have a steady place to live Within the past 12 months, did the food you bought not last and you didn't have the money to get more?: Never true Within the past 12 months, did you worry whether your food would run out before you got money to buy more?: Never true Do you have trouble paying for medicines?: No Do you have trouble getting transportation to medical appointments?: No Do you have trouble paying your heating and electricity bill?: No Do you have trouble taking care of your child, family member or friend?: No Do you have trouble with day-to-day activities such as bathing, preparing meals, shopping, managing finances, etc.?: No Are you currently unemployed and looking for a job?: No Are you interested in more education?: No Please select the resources that you would like help with: None THRIVE Score: 0 AUDIT C Alcohol Use Questionnaire (AUDIT-C) 1. How often do you have a drink containing alcohol?: Never 3. How often do you have six or more drinks on one occasion?: Never Total Score: 0 MERCY-7 AMB Questionnaire MERCY-7 Date MERCY - 7 assessed: 02/14/24 Feeling nervous, anxious, or on edge: 0 = Not at all Not being able to stop or control worryin = Not at all Worrying too much about different things: 0 = Not at all Trouble relaxin = Not at all Being so restless that it is hard to sit still: 0 = Not at all Becoming easily annoyed or irritable: 0 = Not at all Feeling afraid as if something awful might happen: 0 = Not at all Total MERCY-7 score (0-4 normal; 5-9 mild; 10-14 moderate; 15-21 severe): 0 Source: Developed by Drs. Bora Colmenares, Dahlia Tijerina, Yunior Porras and colleagues, with an educational sheila from [employer]. Physical exam (Primary Care) Tobacco/Smoking Status: Tobacco use Status Tobacco use date assessed 05/26/23 02/14/24 14:08 Patient Tobacco Use Status Never used Tobacco 02/14/24 14:08 e-Cigarette/Vaping Use Never Used 02/14/24 14:08 PHQ-9: PHQ-9 Score PHQ-9: Total score 0 02/14/24 14:08 Depression Screening Interpretation: Negative Thrive Assessment: Date of Thrive Assessment Date Thrive assessed 02/14/24 02/14/24 14:08 Telehealth Telehealth Telehealth Platform: Telephone Location of provider rendering services: practice address Location of patient: address on file Patient Identification confirmed using: Name, : Yes Telehealth method: voice only Patient verbally consented to treatment: Yes Patient verbally consented to billing insurance company: Yes Patient informed of any privacy concerns related to visit: Yes Minutes spent on Phone/Video with Pt.: 15 Assessment and Plan Assessment & Plan (1) Right leg DVT: Comment: May 2023 stop 12/2023 Code(s): I82.401 - Acute embolism and thrombosis of unspecified deep veins of right lower extremity Plan: taken off blood thinner. Patient has been doing good advised to keep active avoid trauma. (2) Anemia: Code(s): D64.9 - Anemia, unspecified Plan: Advised to request blood work follow-up for this anemia (3) Migraine: Code(s): G43.909 - Migraine, unspecified, not intractable, without status migrainosus Qualifiers: Migraine type: without aura Status migrainosus presence: without status migrainosus Intractability: not intractable Qualified Code(s): G43.009 - Migraine without aura, not intractable, without status migrainosus Plan: Stable continue with sumatriptan p.r.n. Orders: Orders Complete Blood Count Auto Diff Today D64.9 - Anemia, unspecified Comprehensive Met. Panel Today D64.9 - Anemia, unspecified Ferritin Today D64.9 - Anemia, unspecified Lipid Panel Today D64.9 - Anemia, unspecified, E78.00 - Pure hypercholesterolemia, unspecified Thyroid Stimulating Hormone Today D64.9 - Anemia, unspecified Vitamin B12 and Folate Today D64.9 - Anemia, unspecified Free T4 (Free Thyroxine) Today D64.9 - Anemia, unspecified Reticulocyte Count Today D64.9 - Anemia, unspecified Liver Panel Today D64.9 - Anemia, unspecified, R79.89 - Other specified abnormal findings of blood chemistry Coding Level of Care Code Tele Est Pt Level 4 (49534) Diagnoses Right leg DVT I82.401 Anemia D64.9 Migraine without aura and without status migrainosus, not intractable G43.009 Migraine type: without aura Status migrainosus presence: without status migrainosus Intractability: not intractable Additional Codes PHQ-9 - 10098 - PHQ-9 Billing: ([id number])
== END 2024-02-14 15:44 | disposition home or self-care (01) ==
LOC: HO.HMGH 14:09
PROVIDERS: PCP Internal Medicine; Visit Provider Internal Medicine
DX: I82.401 Acute embolism and thrombosis of unspecified deep veins of right lower extremity (principal); D64.9 Anemia, unspecified; G43.009 Migraine without aura, not intractable, without status migrainosus
CPT/HCPCS: 99214

== ENCOUNTER 2024-02-21 06:25 | Outpatient (REF) | payer OTHER, SELFPAY ==
[2024-02-21 06:37] LABS: MANUAL DIFF FLAG NO
[2024-02-21 07:54] LABS: Basophils Absolute Auto 0.1 X10*3/uL (0.0-0.2); Basophils Percent Auto 0.8 % (0-2); Eosinophils Absolute Auto 0.1 X10*3/uL (0.0-0.4); Eosinophils Percent Auto 1.7 % (0-4); Hematocrit 34.1 % (37.0-47.0); Hemoglobin 10.7 g/dl (12.0-16.0); Imm Gran Abs Auto 0.02 X10*3/uL (0.00-0.03); Imm Gran Pct Auto 0.3 % (0.0-0.4); Immature Retic Fraction 15.6 % (3.0-15.9); Lymphocytes Absolute Auto 2.3 X10*3/uL (1.2-4.9); Lymphocytes Percent Auto 31.7 % (20-40); Mean Corpuscular HGB Conc 31.4 g/dl (31.0-35.0); Mean Corpuscular Hemoglobin 24.6 pg (27.0-33.0); Mean Corpuscular Volume 78.4 fL (80.0-98.0); Mean Platelet Volume 9.5 fL (9.4-12.3); Monocytes Absolute Auto 0.6 X10*3/uL (0.1-1.2); Monocytes Percent Auto 8.6 % (2-11); Neutrophils Absolute Auto 4.1 x10*3/uL (2.0-8.3); Neutrophils Percent Auto 56.9 % (45-73); Platelet Count 299 X10*3/uL (160-400); Red Blood Count 4.35 X10*6/uL (4.20-5.50); Red Cell Distribution Width 15.4 % (11.0-16.0); Retic HGB Equivalent 26.4 pg (30.0-35.0); Reticulocyte Percent 0.9 % (0.5-1.8); Reticulocytes Absolute 0.038 X10*6/uL (0.026-0.095); White Blood Count 7.2 X10*3/uL (4.8-10.8)
[2024-02-21 09:01] LABS: Alanine Aminotransferase 16 U/L (0-31); Albumin Level 4.1 g/dL (3.5-5.0); Alkaline Phosphatase 51 U/L (39-117); Anion Gap 11 (12-20); Aspartate Amino Transferase 22 U/L (5-31); Bilirubin Direct 0.1 mg/dL (0.0-0.5); Bilirubin Total 0.4 mg/dL (0.0-1.0); Blood Urea Nitrogen 11 mg/dL (9-16); Calcium 9.6 mg/dL (8.4-10.2); Carbon Dioxide 22 mmol/L (22-29); Chloride 109 mmol/L (96-108); Cholesterol 144 mg/dL (<200); Estimated Glomerular Filt Rate > 60; Glucose Random 86 mg/dL (60-115); HDL Cholesterol 54 mg/dL (>40); LDL Cholesterol Calculated 83 mg/dL (<100); Potassium 4.2 mmol/L (3.3-5.1); Sodium 138 mmol/L (135-145); Triglycerides 37 mg/dL (<150)
[2024-02-21 09:08] LABS: Ferritin 7 ng/mL (10-122); Free T4 (Free Thyroxine) 0.83 ng/dL (0.71-1.85); Thyroid Stimulating Hormone 2.92 uIU/mL (0.32-4.0)
[2024-02-21 09:11] LABS: Folate 12.1 ng/mL (> or = 4.0); Vitamin B12 681 pg/mL (200-900)
== END 2024-02-21 06:26 | disposition home or self-care (01) ==
LOC: HO.LAB 06:25
PROVIDERS: PCP Internal Medicine; Visit Provider Internal Medicine
DX: E78.00 Pure hypercholesterolemia, unspecified (principal); D64.9 Anemia, unspecified; R79.89 Other specified abnormal findings of blood chemistry
CPT/HCPCS: 36415; 80053; 80061; 82248; 82607; 82728; 82746; 84439; 84443; 85025; 85045

== ENCOUNTER 2024-05-07 05:39 | Emergency (ER) | payer OTHER, SELFPAY ==
[2024-05-07 05:51] VITALS: BP 130/70; PULSE 63; RESP 18; TEMP 36.7; O2SAT 98; BMI 61.4
--- OUTSIDE RECORDS SUMMARY | 2024-05-07 06:19 | XMS_ITS | Continuity of Care Document ---
Author Organization [facility] Address [address] [place] [address]- Care Team Providers Care Hockey Player Name Role Phone Milagro Broussard MD Primary Care Physician Encounter [facility] [place] Date(s): 10/10/23 - 11/23/[address] [address]- Attending Physician: Not on Staff, Attending MD Referring Physician: Charlette Albrecht Allergies, Adverse Reactions, Alerts No Known Allergies Immunizations Given and Recorded Vaccine Date Status Refusal Reason tetanus/diphtheria/pertussis, acel(Tdap) 04/21/11 Given Medications ferrous sulfate 325 mg oral tablet See Instructions, 1 tablet By Mouth every other day, # 90 tablet, 1 Refills, Maintenance, 10/18/23 12:18:00 EST, Tablet, [id number], Partial fill upon patient request if the prescription is for a schedule II opioid drug., 160, cm, 10/10/23 13:... Start Date: 10/18/23 Status: Ordered metroNIDAZOLE 500 mg oral tablet 1 tablet = 500 mg, By Mouth, Every 12 hours, for 7 days, # 14 tablet, 0 Refills, Acute 11/28/23 11:18:00 EST, 11/21/23 11:18:00 EST, Tablet, [id number], Partial fill upon patient request if the prescription is for a schedule II opioid drug., 1... Start Date: 11/21/23 Stop Date: 11/28/23 Status: Ordered OB Tootie One oral capsule 1 capsule, By Mouth, Daily, # 30 capsule, 9 Refills, Maintenance, 10/12/23 15:48:00 EST, Capsule, [id number], Partial fill upon patient request if the prescription is for a schedule II opioiddrug., 1 capsule By Mouth Daily, 160, cm, 10/10/23... Start Date: 10/12/23 Status: Ordered Valtrex 500 mg oral tablet 500 mg, 1, tablet, By Mouth, Daily, # 30 tablet, Refills 0, Maintenance, 10/10/23 14:38:00 EST, Partial fill upon patient request if the prescription is for a schedule II opioid drug. Start Date: 10/10/23 Status: Ordered Problem List Condition Confirmation Course Effective Dates Status Health St atus Informant Herpesvirus infection Confirmed Active History of DVT of lower extremity Confirmed Active Migraines Confirmed Active Social History Social History Type Response Smoking Status Never (less than 100 in lifetime) entered on: 10/10/23 Sex Patient Care team information Care Team Personnel Name: Milagro Broussard MD Position: [facility] Outreach Member Role: PCP Address: Address: [address] [place] [address] [address] [place] [address]- Care Team Related Persons Name: LOVE CEJA Address: home [address] [place] [address] Name: MARLY RODGERS Address: home [address] [place] [address]
--- OUTSIDE RECORDS SUMMARY | 2024-05-07 06:19 | XMS_ITS | Continuity of Care Document ---
Author Organization [facility] Address [address] [place] [address]- Care Team Providers Care Distillery Manager Name Role Phone Milagro Broussard MD Primary Care Physician [phone] Encounter [facility] [place] Date(s): 10/12/23 - 11/11/[address] [address] Allergies, Adverse Reactions, Alerts No Known Allergies Immunizations Given and Recorded Vaccine Date Status Refusal Reason tetanus/diphtheria/pertussis, acel(Tdap) 04/21/11 Given Medications ferrous sulfate 325 mg oral tablet See Instructions, 1 tablet By Mouth every other day, # 90 tablet, 1 Refills, Maintenance, 10/18/23 12:18:00 EST, Tablet, [id number], Partial fill upon patient request if the prescription is for a schedule II opioid drug., 160, cm, 10/10/23 13:... Start Date: 10/18/23 Status: Ordered ibuprofen 800 mg oral tablet 800 mg, 1, tablet, By Mouth, 3 times a day, PRN, # 30 tablet, Refills 0, Tot. Refills 0, Maintenance, for pain, 11/06/23 15:51:00 EST, Route to Pharmacy Electronically, [id number], Partial fill upon patient request if the prescription is for a... Start Date: 11/06/23 Status: Ordered Lovenox 40 mg/0.4 mL injectable solution = 40 mg, Subcutaneous Infusion, Daily, 0 Refills, Maintenance, 10/10/23 15:23:00 EST, Partial fill upon patient request if the prescription is for a schedule II opioid drug. Start Date: 10/10/23 Status: Ordered metoclopramide 10 mg oral tablet 1 tablet = 10 mg, By Mouth, 4 times a day, as needed for migraine, # 28 tablet, 3 Refills, Maintenance, 10/10/23 16:05:00 EST, Tablet, [id number], Partial fill upon patient request if the prescription is for a schedule II opioid drug., 160, cm... Start Date: 10/10/23 Status: Ordered miSOPROStol 200 mcg oral tablet See Instructions, Place 2 tabs between cheek and gums on EACH side, let dissolve for 30 min then swallow the rest with water, # 4 tablet, 1 Refills, Maintenance, 11/06/23 15:52:00 EST, [id number], Partial fill upon patient request if the presc... Start Date: 11/06/23 Status: Ordered OB Tootie One oral capsule 1 capsule, By Mouth, Daily, # 30 capsule, 9 Refills, Maintenance, 10/12/23 15:48:00 EST, Capsule, [id number], Partial fill upon patient request if the prescription is for a schedule II opioiddrug., 1 capsule By Mouth Daily, 160, cm, 10/10/23... Start Date: 10/12/23 Status: Ordered ondansetron 4 mg oral tablet 1 tablet = 4 mg, By Mouth, Every 8 hours, PRN Nausea & Vomiting, # 3 tablet, 0 Refills, Maintenance, 11/06/23 15:51:00 EST, Tablet, [id number], Partial fill upon patient request if the prescription is for a schedule II opioid drug., 160, cm, 0... Start Date: 11/06/23 Status: Ordered Tylenol 8 Hour 650 mg oral tablet, extended release 2 tablet = 1,300 mg, By Mouth, Every 8 hours, PRN as needed for fever, # 50 tablet, 1 Refills, Maintenance, 10/10/23 16:05:00 EST, ER Tablet, [id number], Partial fill upon patient request if the prescription is for a schedule II opioid drug.,... Start Date: 10/10/23 Status: Ordered Valtrex 500 mg oral tablet 500 mg, 1, tablet, By Mouth, Daily, # 30 tablet, Refills 0, Maintenance, 10/10/23 14:38:00 EST, Partial fill upon patient request if the prescription is for a schedule II opioid drug. Start Date: 10/10/23 Status: Ordered Problem List Condition Confirmation Course Effective Dates Status Health St atus Informant Anemia during Confirmed Active History of DVT of lower extremity Confirmed Active Migraines Confirmed Active Normal Confirmed Active Confirmed Active Maternal varicella, non-immune Confirmed Active Social History Social History Type Response Smoking Status Never (less than 100 in lifetime) entered on: 10/10/23 Sex Patient Care team information Care Team Personnel Name: Milagro Broussard MD Position: [facility] Outreach Member Role: PCP Address: Address: [address] [place] [address] [address] [place] [address]- Care Team Related Persons Name: LOVE CEJA Address: home [address] [place] [address] Name: MARLY RODGERS Address: [address] [place] [address]
--- OUTSIDE RECORDS SUMMARY | 2024-05-07 06:19 | XMS_ITS | Continuity of Care Document ---
Author Organization [facility] Address [address] [place] [address]- Care Team Providers Care Farmworker Fryer Farm Name Role Phone Milagro Broussard MD Primary Care Physician [phone] Encounter [facility] [place] Date(s): 11/16/23 - 12/16/[address] [address] Allergies, Adverse Reactions, Alerts No Known Allergies [...] 10/10/23 13:... Start Date: 10/18/23 Status: Ordered OB One oral capsule 1 capsule, By Mouth, [...] Team Personnel Name: Milagro Broussard MD Position: [facility] Outreach Member Role: PCP Address: Address: [address] [place] [address] [address] [place] [address]- Care Team Related Persons Name: LOVE CEJA Address: [address] [place] [address] Name: MARLY RODGERS Address: home [address] [place] [address]
--- OUTSIDE RECORDS SUMMARY | 2024-05-07 06:19 | XMS_ITS | Continuity of Care Document ---
Author Organization [facility] Address [address] [place] [address]- Care Team Providers Care Punchboard Inserter Name Role Phone Milagro Broussard MD Primary Care Physician Encounter [facility] [place] Date(s): 10/26/23 - 11/25/[address] [address] Allergies, Adverse Reactions, Alerts No Known [...] Team Personnel Name: Milagro Broussard MD Position: [facility] Outreach Member Role: PCP Address: Address: [address] [place] [address] [address] [place] [address]- Care Team Related Persons Name: LOVE CEJA Address: home [address] [place] [address] Name: MARLY RODGERS Address: home [address] [place] [address]
--- OUTSIDE RECORDS SUMMARY | 2024-05-07 06:19 | XMS_ITS | Continuity of Care Document ---
Author Organization [facility] Address [address] [place] [address]- Care Team Providers Care Communication Equipment Repairer Name Role Phone Milagro Broussard MD Primary Care Physician Encounter [facility] [place] Date(s): 10/26/23 - 12/08/[address] [address]- Attending Physician: Not on Staff, Attending MD Allergies, Adverse Reactions, Alerts No Known Allergies [...] Team Personnel Name: Milagro Broussard MD Position: [facility] Outreach Member Role: PCP Address: Address: [address] [place] [address] [address] [place] [address]- Care Team Related Persons Name: LOVE CEJA Address: [address] [place] [address] Name: MARLY RODGERS Address: home [address] [place] [address]
--- OUTSIDE RECORDS SUMMARY | 2024-05-07 06:19 | XMS_ITS | Continuity of Care Document ---
Author Organization [facility] Address [address] [place] [address]- Care Team Providers Care Instructor Business Education Name Role Phone Milagro Broussard MD Primary Care Physician Encounter [facility] [place] Date(s): 11/21/23 - 12/21/[address] [address] Attending Physician: Joon Vieira Admitting Physician: Joon Vieira Referring Physician: AdmtrJoon Allergies, Adverse Reactions, Alerts No Known Allergies [...] 13:... Start Date: 10/18/23 Status: Ordered OB Tootie One oral capsule [...] 100 in lifetime) entered on: 10/10/23 Sex Radiology * Winnie Martínez: PERFORM Event Display: Radiology Results Scanned Authored Date: [id number] * Winnie Martínez: PERFORM Event Display: Radiology Results Scanned Authored Date: [id number] * Winnie Martínez: PERFORM Event Display: Radiology Results Scanned Authored Date: [id number] Patient Care team information Care Team Personnel Name: Milagro Broussard MD Position: [facility] Outreach Member Role: PCP Address: Address: [address] [place] [address] [address] [place] [address]- Care Team Related Persons Name: LOVE CEJA Address: [address] [place] [address] Name: MARLY RODGERS Address: home [address] [place] [address]
--- OUTSIDE RECORDS SUMMARY | 2024-05-07 06:19 | XMS_ITS | Continuity of Care Document ---
Author Organization [facility] Address [address] [place] [address]- Care Team Providers Care Preschool Lead Teacher Name Role Phone Milagro Broussard MD Primary Care Physician Encounter [facility] [place] Date(s): 10/09/23 - 11/08/[address] [address] Allergies, Adverse Reactions, Alerts No Known Allergies Immunizations Given and Recorded Vaccine Date Status Refusal Reason tetanus/diphtheria/pertussis, acel(Tdap) 04/21/11 Given Medications ferrous sulfate 325 mg oral tablet See Instructions, 1 tablet By Mouth every other day, # 90 tablet, 1 Refills, Maintenance, 10/18/23 12:18:00 EST, Tablet, [facility] #[id number], Partial fill upon patient request if the prescription is for a schedule II opioid drug., 160, cm, 10/10/23 13:... Start Date: 10/18/23 Status: Ordered ibuprofen 800 mg oral tablet 800 mg, 1, tablet, By Mouth, 3 times a day, PRN, # 30 tablet, Refills 0, Tot. Refills 0, Maintenance, for pain, 11/06/23 15:51:00 EST, Route to Pharmacy Electronically, [facility]/pharmacy #[id number], Partial fill upon patient request if [...] Team Personnel Name: Milagro Broussard MD Position: [facility] Outreach Member Role: PCP Address: Address: [address] [place] [address] [address] [place] [address]- Care Team Related Persons Name: LOVE CEJA Address: [address] [place] [address] Name: MARLY RODGERS Address: [address] [place] [address]
--- OUTSIDE RECORDS SUMMARY | 2024-05-07 06:19 | XMS_ITS | Continuity of Care Document ---
Author Organization [facility] Address [address] [place] [address]- Care Team Providers Care Devil Tender Name Role Phone Milagro Broussard MD Primary Care Physician Encounter [facility] [place] Date(s): 10/26/23 - 12/20/[address] [address]- Attending Physician: Not on Staff, Attending MD [...] Name: Milagro Broussard MD Position: [facility] Outreach Member Role: PCP Address: Address: [address] [place] [address] [address] [place] [address]- Care Team Related Persons Name: LOVE CEJA Address: [address] [place] [address] Name: MARLY RODGERS Address: home [address] [place] [address]
--- OUTSIDE RECORDS SUMMARY | 2024-05-07 06:19 | XMS_ITS | Continuity of Care Document ---
Author Organization [facility] Address [address] [place] [address]- Care Team Providers Care Door Trimmer Name Role Phone Milagro Broussard MD Primary Care Physician Encounter [facility] Date(s): 10/05/23 - 11/04/[address] [address]- Allergies, Adverse Reactions, Alerts No Known Allergies [...] 10/10/23 13:... Start Date: 10/18/23 Status: Ordered Lovenox 40 mg/0.4 mL injectable [...] 160, cm... Start Date: 10/10/23 Status: Ordered OB Tootie One oral capsule 1 capsule, By Mouth, Daily, # 30 capsule, 9 Refills, Maintenance, 10/12/23 15:48:00 EST, Capsule, [id number], Partial fill upon patient request if the prescription is for a schedule II opioiddrug., 1 capsule By Mouth Daily, 160, cm, 10/10/23... Start Date: 10/12/23 Status: Ordered Tylenol 8 Hour 650 mg [...] Team Personnel Name: Milagro Broussard MD Position: [facility] Outreach Member Role: PCP Address: Address: [address] [place] [address] [address] Milagro Broussard MD [place], [place] - Care Team Related Persons Name: LOVE CEJA Address: [address] [place] [address] Name: MARLY RODGERS Address: home [address] [place] [address]
--- OUTSIDE RECORDS SUMMARY | 2024-05-07 06:19 | XMS_ITS | Continuity of Care Document ---
Author Organization [facility] Address [address] [place] [address]- Care Team Providers Care Food Production Machine Operator Name Role Phone Milagro Broussard MD Primary Care Physician [phone] [place] [facility] [place](s): 11/08/23 - 11/08/[address] [address] Discharge Disposition: A-D/C Home Attending Physician: Suki Peñaloza DO Admitting Physician: Suki Peñaloza DO Referring Physician: Suki Peñaloza DO Allergies, Adverse Reactions, Alerts No Known Allergies Immunizations Given and Recorded Vaccine Date Status Refusal Reason tetanus/diphtheria/pertussis, acel(Tdap) 04/21/11 Given Medications ferrous sulfate 325 mg oral tablet See Instructions, 1 tablet By Mouth every other day, # 90 tablet, 1 Refills, Maintenance, 10/18/23 12:18:00 EST, Tablet, [facility]/pharmacy #[id number], Partial fill upon patient request if the prescription is for a schedule II opioid drug., 160, cm, 10/10/23 13:... Start Date: 10/18/23 Status: Ordered ibuprofen 800 mg oral tablet 800 mg, 1, tablet, By Mouth, 3 times a day, PRN, # 30 tablet, Refills 0, Tot. Refills 0, Maintenance, for pain, 11/06/23 15:51:00 EST, Route to Pharmacy Electronically, [facility]/pharmacy #[id number], Partial fill upon patient request [...] Confirmed Active Maternal varicella, non-immune Confirmed Active Vital Signs Most recent to oldest [Reference Range]: 1 2 Weight 74.7 kg (11/08/23 4:30 AM) Oxygen Saturation [94-100 %] 100 % (11/08/23 4:40 AM) Blood Pressure [90-138/55-84 mm Hg] 114/ 59mm Hg (11/08/23 6:04 AM) 109/65mm Hg (11/08/23 4:40 AM) Respiratory Rate [16-30 br/min] 18 br/mi n (11/08/23 6:04 AM) 18 br/min (11/08/23 4:40 AM) Temperature [96.8-100.4 DegF] 97.6 DegF (11/08/23 4:30 AM) Mode of Delivery (Oxygen) Room air (11/08/23 4:40 AM) Blood pressure sites Arm, left (11/08/23 6:04 AM) Arm, left (11/08/23 4:40 AM) Temperature Route Oral (11/08/23 4:30 AM) Dry Weight 74.7 kg (11/08/23 4:30 AM) Weight Obtained Via Standing scale (11/08/23 4:30 AM) Dry Weight Obtained Via Standing scale (11/08/23 4:30 AM) Social History Social History Type Response Smoking Status Never (less than 100 in lifetime) entered on: 10/10/23 Sex Note * Felecia Hernandez RN: PERFORM Event Display: Discharge/Transfer Note Hospital Authored Date: [id number] Nursing Discharge Note Entered On: 11/08/2023 7:58 EST Performed On: 11/08/2023 7:58 EST by Felecia Hernandez RN Nursing Discharge Note 2 Discharge Time : 11/08/2023 7:50 EST Discharge Level of Care at Discharge : Home/M[facility]/Foster Care Patient Left Unit Via : Ambulatory Patient Accompanied Off Unit with : Significant other DC Instructions Provided & Signed by Pt : Yes Patient Understands D/C Instructions : Yes Patient Instructions Discharge Signed : Yes Did Pt have Specialty Bed or Wound Vac : No Felecia Hernandez RN - 11/08/2023 7:58 EST * Felecia Hernandez RN: PERFORM Event Display: Patient Education/Instruction Authored Date: [id number] Inpatient Adult Discharge Instructions. [address] [address] Name: SO CEJA : 1990?? Visit: 11/08/2023 04:21?? Current Date: 11/08/2023 07:39 ?? Account: [id number]?? Inpatient Adult Discharge Instructions We would like to thank you for allowing us to assist you with your healthcare needs. The following includes patient education materials and information regarding your injury/illness. Our entire staffstrives to provide an excellent experience for our patients and their families. PLEASE ENSURE YOU FOLLOW-UP PER THE INSTRUCTIONS BELOW! ?? YOUR OPINION IS IMPORTANT TO US! Please complete the survey you may receive by mail or email. Your feedback will be used to make improvements to the healthcare experiences of our patients and their families. Surveys are administered by [employer] ?? If further treatment with your primary care physician or another doctor is recommended, it is important for you to keep the appointment. Call your primary care physician or return to the Emergency Department immediately if your condition worsens, fails to improve, or new symptoms develop. If you need to find a doctor, you can call [facility] Link for a referral at [phone] or toll free at [phone]) or log in to [email or web address].. ?? [facility], in keeping with [facility] guidance, no longer requires face masks for staff, patientsor visitors in most situations. Similiar to time spent indoors at other locations, there is the chance that you were exposed to repiratory viruses during your time with us (such as flu or COVID-19). If you develop symptoms concerning for a viral respiratory infection, please seek testing (and treatment if indicated) from your medical provider or home test kit. ?? You can view and manage your care through the patient portal or by using a health care pedro of your choosing. [employer] is a website that allows you to securely view your medical information including your hospital discharge summary, office visit summaries, medications and follow-up visits. You can also request appointments, renew medications, and request access to your medical information using a health care pedro of your choosing, or just ask a question. You can enroll at [email or web address] or register during your next office visit. You have been discharged from [facility], Patient Care Unit: WETU1??. If you have any questions regarding these instructions, including results of studies pending, afteryou leave, please call us and we will be happy to assist you 24/04. [facility] Your Care Team Attending Physician Suki Peñaloza DO?? Consulting Providers Suki Peñaloza DO?? Your Diagnosis Missed Tests Performed Below is a partial list of the tests performed during your hospitalization. You may have had other tests and procedures not included in this list. Please discuss all test results with your provider. Beta HCG Serum (Females Only) CBC No tests performed during this visit.?? Primary Care Provider Aarti COCHRAN, Milagro Echavarria? Advance Directive Patient has a Designated Caregiver: No Discharge Vitals Temperature: 97.6 DegF Weight: 74.7 kg Respiratory Rate: 18 br/min ?? Systolic Blood Pressure: 114 mm Hg ?? Diastolic Blood Pressure: 59 mm Hg ?? Oxygen Saturation: 100 % ?? Studies Pending All studies ordered during this hospital stay have been completed unless listed below. Please discuss all pending results with your provider listed above in these instructions. ?? No incomplete studies found?? What to do next Instructions From Your Doctor ?? Orders?? Scheduled Follow-Up Appointments Monday 10:00 AM EST ?? Where: [facility] [address] [place] [address]- Status: Pending Discharge Medications SO CEJA :1990 Visit Date:11/08/2023 Medications: Please continue your medications until treatment is completed or stopped by your provider. Medications not listed below should be discontinued. Discuss any questions related to medications with your provider. What How Much When Why Instructions Next Dose Unchanged Acetaminophen (Tylenol 8 Hour 650 mg oral tablet, extended release) 2 tab(s) Oral Every 8 hours as needed for as needed for fever Unchanged Enoxaparin (Lovenox 40 mg/ 0.4 mL injectable solution) 40 Milligram Subcutaneous Infusion Daily Unchanged Ferrous Sulfate (ferrous sulfate 325 mg oral tablet) See instructions Anemia during 1 tablet By Mouth every other day ?? Unchanged Ibuprofen (ibuprofen 800 mg oral tablet) 1 tab(s) Oral 3 times a day as needed for for pain Unchanged Metoclopramide (metoclopramide 10 mg oral tablet) 1 tab(s) Oral 4 times a day as needed for migraine ?? Unchanged Misoprostol (miSOPROStol 200 mcg oral tablet) See instructions Place 2 tabs between cheek and gums on EACH side, let dissolve for 30 min then swallow the rest with water ?? Unchanged Multivitamin, (OB One oral capsule) 1 capsule Oral Daily Unchanged Ondansetron (ondansetron 4 mg oral tablet) 1 tab(s) Oral Every 8 hours as needed for Nausea & Vomiting Unchanged ValACYclovir (Valtrex 500 mg oral tablet) 1 tab(s) Oral Daily Prescription Given During Visit No new medications prescribed at time of discharge.?? Laboratory Results Below is a partial list of the most recent Laboratory test results done prior to this discharge. You may have had other tests and procedures not included in this list. Please discuss all test resultswith your provider. Beta HCG Serum (Females Only) (11/08/2023) ???Blood - 1844 mIU/mL CBC (11/08/2023) ???WBC - 16.3 k/mm3???RBC - 3.86 m/mm3???Hgb - 10.9 Gm/dL???Hct - 33.0 %???MCV - 85.5 femtoliters???MCH - 28.2 pg???MCHC - 33.0 g/dL???Platelet Count - 243 k/mm3???RDW-SD - 39.6 femtoliters???MPV - 9.2 femtoliters???Nucleated RBC (Automated) - 0.0 #/100 WBC'S???Abs. NRBC - 0.0 k/mm3 Allergies (NKA means No Known Allergies) NKA Problems Active Problems??(7) Anemia during ?? History of DVT of lower extremity?? Maternal varicella, non-immune?? Migraines?? Normal ? Education Materials Below is the list of Educational Leaflet Providered with your Discharge Instructions. Missed Miscarriage?? Valuables and Belongings I fully understand and agree that [facility] accepts no responsibility for all my personal property including clothing, toilet articles, radios, jewelry, dentures, hearing aids, rings, money, or any other property that is in my possession or is brought to me after admission. I understand certain valuables may be placed in a hospital safe for a short period of time. I understand that the hospital is not liable for loss or damage due to accident, fire, or other natural occurrence while said property is in the safe. I accept full responsibility for any personal property that I keep with me, and will not hold the hospital responsible in case of loss or disappearance. I acknowledge that i have been encouraged to send valuables and belongings home. ? Other Discharge Information ? Pulmonary Rehab Status?? Pulmonary Rehab Discharge Status?? Respiratory Rate: 18 br/min ? Common Emergency Awareness Tips IS IT A STROKE? Act FAST and Check for these signs: FACE Does the face look uneven? ARM Does one arm drift down? SPEECH Does their speech sound strange? TIME Call at any sign of stroke ?? Heart Attack Signs Chest discomfort: Most heart attacks involve discomfort in the center of the chest and lasts more than a few minutes, or goes away and comes back. It can feel like uncomfortable pressure, squeezing, fullness or pain. Discomfort in upper body: Symptoms can include pain or discomfort in one or both arms, back, neck, jaw or stomach. Shortness of breath: With or without discomfort. Other signs: Breaking out in a cold sweat, nausea, or lightheaded. Remember, MINUTES DO MATTER. If you experience any of these heart attack warning signs, call to get immediate medical attention! ?? Smoking can increase your chances of developing chronic health problems and can cause harmful effects to other family members in your house. If you smoke, you are strongly encouraged to quit. Please call [facility] Link at [phone] or [phone] ([phone]) or log in to [email or web address] for referrals to smoking cessation programs. ?? 105 Suicide & Crisis Lifeline is available 24/04 if you or someone you know needs to find a reason to keep living. By calling 931 you'll be connected to a skilled, trained counselor at a crisis center in your area. INPATIENT DISCHARGE INSTRUCTIONS SIGNATURE PAGE SO CEJA Location:[facility] Registration Date and Time:11/08/2023 04:21 EST Primary Care Physician: Aarti COCHRAN, Milagro Echavarria, Attending Physician: Suki Peñaloza DO, I SO CEJA, have received the above patient education materials/instructions and have verbalized understanding. If ambulance or transport services are being used I further acknowledge being given a choice of service. ?? If you need to contact me, please call me at this number: . Patient/Pad Tufter Name: Patient/Pad Tufter Signature: Relationship to Patient: Witness Name/Signature: Date: * Felecia Hernandez RN: PERFORM Event Display: Patient Education Leaflets Authored Date: [id number] Missed Miscarriage ?? [id number] Missed Miscarriage Today's exams show that you have had a miscarriage. This is the unplanned end of a [id number] weeks. When a miscarriage happens, you???re likely to have a wide range of feelings. Missed miscarriage means the embryo or fetus dies, but does not pass out of the uterus. Sometimes dark brown spotting occurs. There is no heartbeat or growth of the fetus. It???s important to know that you did not cause this to happen. Miscarriage is very common. About 1or 2 out of every [address] Miscarriage usually takes place in the first 10 weeks after conception. It may happen before you know you are . It may happen for many reasons. Often the cause is not known. Miscarriage is not your fault. It didn???t happen because you did something wrong. Sex or exercise does not cause a miscarriage. These activities are safe unless your healthcare provider tells you tostop. Even a minor fall won???t cause a miscarriage. You still have some tissue from the in your uterus. Because of this, you may have some bleeding. It might be light spotting. Or it may be as heavy as a period. You may have some cramping. In most cases, all of the tissue will pass out by itself. Then nothing else needs to be done. In somecases, tissue stays in the uterus. It must be removed. This is done to stop bleeding and prevent inf ection. After you have recovered, you should be able to get again. Before trying, talk with your healthcare provider. Home care After you go home: ??? You may not feel well for a few days. Your body is going through changes. You will have mood swings. ??? You may have some cramping and bleeding, but it shouldn???t be severe. ??? You may pass tissue. It may appear as a 1-inch or larger piece of zhao or pink tissue. ??? When you are ready, you can start to go back to your normal routine. Until the bleeding stops fully, to prevent infection: ??? Don???t have sex until your healthcare provider says it???s OK. ??? Don???t use tampons. Use pads instead. ??? Don???t use douche. Having a miscarriage is stressful and upsetting. It's natural to feel sadness or grief. Partners grieve, too. It may help to talk about your feelings with family, friends, a counselor, or mortgage advisor. ?? Follow-up care Follow up with your healthcare provider as advised. If you had an ultrasound, a radiologist will look at it. You will be told of any results that may affect your care. If tissue has not passed from your vagina in the next 5 days, call your healthcare provider. You will need another exam. Your provider might need to take out the tissue with surgery. This is toprevent infection in your uterus. Or you may be given medicine to take at home. This will help the rest of the tissue come out of your body. ?? Call 911 Call 911 if you have any of these: ??? Severe pain and very heavy bleeding ??? Severe lightheadedness, passing out, or fainting ??? Fast heart rate ??? Trouble breathing ??? Confusion ??? Trouble waking up ?? When to get medical care Call your healthcare provider right away if you have any of these: ??? Heavy bleeding that soaks 1 pad an hour over 3 hours ??? Fluid from your vagina that smells bad ??? Fever of 100.4??F (38??C) orhigher ??? Pain in your lower belly (abdomen) that gets worse ??? Weakness or dizziness ??? Passinganything that looks like body tissue from your vagina. Save it in a clean container. Bring it to your provider. ?? Last Reviewed Date: 2021 ?? [id number] [employer]. All rights reserved. This information is not intended as a substitute for professional medical care. Always follow your healthcare professional's instructions. ?? Patient Care team information Care Team Personnel Name: Milagro Broussard MD Position: [facility] Outreach Member Role: PCP Address: Address: [address] [place] [address] [address] Milagro Broussard MD [place], [place] - Care Team Related Persons Name: LOVE CEJA Address: home [address] [place], [place] Name: MARLY RODGERS Address: home [address] [place] [address]
--- OUTSIDE RECORDS SUMMARY | 2024-05-07 06:19 | XMS_ITS | Continuity of Care Document ---
Author Organization [facility] Address [address] [place] [address]- Care Team Providers Care Fuel Cell Designer Name Role Phone Milagro Broussard MD Primary Care Physician [phone] [place] [facility] [place]12/23 - 11/11/[address] [address] Allergies, Adverse Reactions, Alerts No Known Allergies Immunizations Given and Recorded Vaccine Date Status Refusal Reason tetanus/diphtheria/pertussis, acel(Tdap) 04/21/11 Given Medications ferrous sulfate 325 mg oral tablet See Instructions, 1 tablet By Mouth every other day, # 90 tablet, 1 Refills, Maintenance, 10/18/23 12:18:00 EST, Tablet, [facility]/pharmacy #[id number], Partial fill upon patient request if the prescription is for a schedule II opioid drug., 160, cm, 10/10/23 13:... Start Date: 10/18/23 Status: Ordered ibuprofen 800 mg oral tablet 800 mg, 1, tablet, By Mouth, 3 times a day, PRN, # 30 tablet, Refills 0, Tot. Refills 0, Maintenance, for pain, 11/06/23 15:51:00 EST, Route to Pharmacy Electronically, [facility]/pharmacy #[id number], Partial fill upon patient request [...] Team Personnel Name: Milagro Broussard MD Position: [facility] Outreach Member Role: PCP Address: Address: [address] [place] [address] [address] [place] [address]- Care Team Related Persons Name: LOVE CEJA Address: home [address] [place] [address] Name: MARLY RODGERS Address: home [address] [place] [address]
--- OUTSIDE RECORDS SUMMARY | 2024-05-07 06:20 | XMS_ITS | Continuity of Care Document ---
Author Organization [facility] Address [address] [place] [address]- Care Team Providers Care Social Work Faculty Member Name Role Phone Milagro Broussadr MD Primary Care Physician [place] [facility] [place] - 10/15/[address] [address]- Allergies, Adverse Reactions, Alerts No Known Allergies Immunizations Given and Recorded Vaccine Date Status Refusal Reason tetanus/diphtheria/pertussis, acel(Tdap) 04/21/11 Given Medications Lovenox 40 mg/0.4 mL injectable solution = [...] Maintenance, 10/10/23 16:05:00 EST, ER Tablet, [id number], Partial fill upon patient request if the [...] Effective Dates Status Health [facility] Informant History of DVT of lower extremity Confirmed Active Migraines Confirmed Active Normal Confirmed Active Social History Social History Type Response Smoking Status Never (less than 100 in lifetime) entered on: 10/10/23 Sex Patient Care team information Care Team Personnel Name: Milagro Broussard MD Position: [facility] Outreach Member Role: PCP Address: Address: [address] [place] [address]- Care Team Related Persons Name: LOVE CEJA Name: MARLY RODGERS Address: home [address] [place] [address]
--- OUTSIDE RECORDS SUMMARY | 2024-05-07 06:20 | XMS_ITS | Continuity of Care Document ---
Author Organization [facility] Address [address] [place] [address]- Care Team Providers Care Nurse Plastics Name Role Phone Milagro Broussard MD Primary Care Physician Encounter [facility] [place] Date(s): 10/26/23 - 11/25/[address] [address] Allergies, Adverse Reactions, Alerts No Known [...] Team Personnel Name: Milagro Broussard MD Position: [facility] Outreach Member Role: PCP Address: Address: [address] [place] [address] [address] [place] [address]- Care Team Related Persons Name: LOVE CEJA Address: home [address] [place] [address] Name: MARLY RODGERS Address: home [address] [place] [address]
--- OUTSIDE RECORDS SUMMARY | 2024-05-07 06:20 | XMS_ITS | Continuity of Care Document ---
[facility] Address [address] [facility] [place] [address]- Care Team Providers Care Load Dispatcher Name Role Phone Milagro Broussard MD Primary Care Physician [place] [facility] [place]18[place] 11[place]17/[place] [facility] [address] [place], [place] [address] Allergies, Adverse Reactions, Alerts No Known Allergies Immunizations Given and Recorded Vaccine Date Status Refusal Reason tetanus/diphtheria/pertussis, acel(Tdap) 04/21/11 Given Medications ferrous sulfate 325 mg oral tablet See Instructions, 1 tablet By Mouth every other day, # 90 tablet, 1 Refills, Maintenance, 10/18/23 12:18:00 EST, Tablet, [facility]/pharmacy #[id number], Partial fill upon patient request if the prescription is for a schedule II opioid drug., 160, cm, 10/10/23 13:... Start Date: 10/18/23 Status: Ordered ibuprofen 800 mg oral tablet 800 mg, 1, tablet, By Mouth, 3 times a day, PRN, # 30 tablet, Refills 0, Tot. Refills 0, Maintenance, for pain, 11/06/23 15:51:00 EST, Route to Pharmacy Electronically, [facility]/pharmacy #[id number], Partial fill upon patient request [...] Team Personnel Name: Milagro Broussard MD Position: [facility] Outreach Member Role: PCP Address: Address: [address] [place] [address] [address] [place] [address]- Care Team Related Persons Name: LOVE CEJA Address: home [address] [place] [address] Name: MARLY RODGERS Address: home [address] [place] [address]
--- OUTSIDE RECORDS SUMMARY | 2024-05-07 06:20 | XMS_ITS | Continuity of Care Document ---
Author Organization [facility] Address [address] [place] [address]- Care Team Providers Care Urologist Physician Name Role Phone Milagro Broussard MD Primary Care Physician [phone] En[place] [facility] [place] Date(s): 11/07/23 - 12/07/[address] [address] Allergies, Adverse Reactions, Alerts No Known [...] Team Personnel Name: Milagro Broussard MD Position: [facility] Outreach Member Role: PCP Address: Address: [address] [place] [address] [address] [place] [address]- Care Team Related Persons Name: LOVE CEJA Address: home [address] [place] [address] Name: MARLY RODGERS Address: home [address] [place] [address]
--- OUTSIDE RECORDS SUMMARY | 2024-05-07 06:20 | XMS_ITS | Continuity of Care Document ---
Author Organization [facility] Address [address] [place] [address]- Care Team Providers Care Photo Manager Name Role Phone Milagro Broussard MD Primary Care Physician [phone] Encounter [facility] [place] Date(s): 10/26/23 - 01/17/[address] [address]- Attending Physician: Not on Staff, Attending MD [...] Team Personnel Name: Milagro Broussard MD Position: [facility] Outreach Member Role: PCP Address: Address: [address] [place] [address] [address] [place] [address]- Care Team Related Persons Name: LOVE CEJA Address: home [address] [place] [address] Name: MARLY RODGERS Address: home [address] [place] [address]
--- OUTSIDE RECORDS SUMMARY | 2024-05-07 06:20 | XMS_ITS | Continuity of Care Document ---
Author Organization [facility] [employer]han [email or web address] [facility] Address [address], [address] [place] [address]- Care Team Providers Care Sizer Hand Name Role Phone Milagro Broussard MD Primary Care Physician Encounter [facility] Date(s): 03/12/24 - 03/19/24 [facility] [employer] [facility] [address] [place], [place] [address] Attending Physician: Mana Mckeon MD Referring Physician: Mickie Burgos DO Allergies, Adverse Reactions, Alerts No Known [...] lower extremity Confirmed Active Migraines Confirmed Active Vital Signs Most recent to oldest [Reference Range]: 1 Height 160 cm (03/12/24 2:04 PM) Weight 72 kg (03/12/24 2:04 PM) Pulse Rate [55-90 bpm] 70 bpm (03/12/24 2:04 PM) Body Mass Index [18.5-24.99 kg/m2] 28.13 kg/m2 *H* (03/12/24 2:04 PM) Blood Pressure [90-138/55-84 mm Hg] 123/ 55mm Hg (03/12/24 2:04 PM) Blood pressure sites Arm, right (03/12/24 2:04 PM) Dry Weight 72 kg (03/12/24 2:04 PM) Weight Obtained Via Standing scale (03/12/24 2:04 PM) Dry Weight Obtained Via Standing scale (03/12/24 2:04 PM) Social History Social History Type Response Smoking Status Never (less than 100 in lifetime) entered on: 10/10/23 Sex Patient Care team information Care Team Personnel Name: Milagro Broussard MD Position: [facility] Outreach Member Role: PCP Address: Address: [address] [place] [address] [address] [place] [address]- Care Team Related Persons Name: LOVE CEJA Address: home [address] [place] [address] Name: MARLY RODGERS Address: [address] [place] [address]
--- OUTSIDE RECORDS SUMMARY | 2024-05-07 06:20 | XMS_ITS | Continuity of Care Document ---
Author Organization [facility] Address [address], [address] [place] [address]- Care Team Providers Care Career Development Consultant Name Role Phone Milagro Broussard MD Primary Care Physician [phone] Encounter [facility] Date(s): 03/12/24 - 04/11/24 [facility] [address], [address] [place], [place] [address] Attending Physician: Joon Vieira Admitting [...] Team Personnel Name: Milagro Broussard MD Position: [facility] Outreach Member Role: PCP Address: Address: [address] [place] [address] [address] [place] [address]- Care Team Related Persons Name: LOVE CEJA Address: [address] [place] [address] Name: MARLY RODGERS Address: home [address] [place] [address]
--- NOTE | 2024-05-07 06:32 | ED_ITS ---
HPI - General Adult General Chief complaint: General Medical Stated complaint: Lump on neck Time Seen by Provider: 05/07/24 06:31 Source: patient and RN notes reviewed Mode of arrival: ambulatory Limitations: no limitations History of Present Illness ED Provider: Ngoc Mitchell PA-C HPI narrative: This is a 34-year-old female, with a history of DVT provoked by control and , who presents emergency department with complaints of right-sided lump on her neck x3 days. Patient reports that she noticed this 3 days ago while feeling the side of her neck. She states that since she has noticed it, it has not increased in pain or size. She states that she is otherwise feeling well, no recent fevers, congestion, sore throat, ear pain, chest pain, shortness of breath. No recent profound night sweats or changes in her weight. She states that she called her primary care physician who told her to come to the emergency room prior to being seen in the office. No other complaints or concerns at this time. MD complaint: Right neck lump Onset (ago): day(s) Location: neck Radiation: non-radiation Relieving factors: none Exacerbating factors: none Associated symptoms: denies other symptoms Treatments prior to arrival: none Related Data Home Medications ?Medication ?Instructions ?Recorded ?Confirmed valacyclovir 500 mg tablet 500 mg PO DAILY PRN Cold Sores 08/16/23 01/01/24 Previous Rx's ?Medication ?Instructions ?Recorded sumatriptan succinate 50 mg tablet 50 mg PO Q2-4H PRN migraine 07/24/23 (Imitrex) headache #10 tabs ascorbate calcium (vitamin C) 500 500 mg PO DAILY #30 tabs 02/21/24 mg tablet ferrous sulfate 325 mg (65 mg 325 mg PO DAILY #90 tabs 02/21/24 iron) tablet (Feosol) Allergies Allergy/AdvReac Type Severity Reaction Status Date / Time No Known Allergies Allergy Verified 05/07/24 05:55 Review of Systems Review of Systems: Yes all other systems are reviewed and are negative Constitutional: Constitutional: Reports as per [facility] Past Medical History Attestation statement: The following information was validated with the patient. Medical History Anemia Calf cramp Hearing difficulty of both ears Blood pressure elevated without history of HTN Mouth sore Gastroenteritis Tiredness Palpitations Facial weakness Otitis media Migraine GERD (gastroesophageal reflux disease) Surgical History History of breast lump/mass excision Family History Family History Father Cancer Hypertension FH: prostate cancer Mother Hypertension Substance abuse DVT (deep venous thrombosis) Paternal Grandmother Breast cancer Paternal Grandfather FH: testicular cancer Stomach cancer Maternal Grandmother DVT (deep venous thrombosis) Social History Social History Housing: Apartment Alcohol intake: current Alcohol intake frequency: does not drink Patient Tobacco Use Status: Never used Tobacco Years Smoked: 2013 prn Smoked in Last 30 Days: No e-Cigarette/Vaping Use: Never Used Second Hand Smoke Exposure: No Use of substances other than those prescribed or required for medical reasons: No Advance Directives: Yes Advance Directives on File: Yes Advance Directives Date on File: 06/05/23 service: No Current occupational status: employed Current occupational exposures/hazards: No Cognitive needs: No Hearing needs: No Vision needs: No Physical Exam ED Vital Signs: Vital Signs - 24 hr 05/07/24 05:51 Temperature 98.0 F Pulse Rate 63 Respiratory Rate 18 Blood Pressure 130/70 Pulse Oximetry 98 Oxygen Delivery Method Room Air BMI result Body Mass Index 61.4 Const General: cooperative, comfortable and no acute distress Orientation/consciousness: patient oriented x3 Limitations: no limitations HENMT Head: Yes normal to inspection, Yes normocephalic and Yes atraumatic Ears: hearing grossly normal bilaterally General nose exam: Normal external nose present Face and sinus: Yes normal facial exam Mouth: Normal oral and palatal mucosa present, oropharynx normal and moist mucous membranes Throat: Yes posterior oropharynx normal Eyes General: appearance normal, both eyes and all related structures Eyelids: Yes eyelids normal Conjunctivae: conjunctivae normal Sclerae: sclerae normal Pupils: Equal, round and reactive pupils present EOM: EOMs intact bilaterally Neck Other: Right posterior chain, with palpable mobile 2 cm lymph node. No surrounding overlying skin changes or warmth. Neck: Yes normal visual inspection and Yes full ROM Chest Chest palpation & inspection: normal inspection of the chest Resp Effort & Inspection: normal respiratory effort and able to speak in complete sentences Auscultation: clear to auscultation bilaterally, no crackles, no rales, no rhonchi and no wheezes Cardio Rate: regular rate Rhythm: regular rhythm Heart sounds: S1 normal heart sound present and S2 normal heart sound present GI Inspection: Yes normal to inspection Skin General skin exam: no rashes or lesions noted Trauma: no lacerations or abrasions Wounds: no wounds Neuro General: patient oriented x3 and moves all extremities Cranial nerves: Yes Equal, round and reactive pupils present Extrem General: Yes normal to inspection Right upper extremity: normal to inspection Left upper extremity: normal to inspection Right lower extremity: normal to inspection Left lower extremity: normal to inspection Course Reevaluation(s) Reevaluation #1: Patient also evaluated by my attending physician, Dr. Silva, who agrees that this is a lymph node. Discussed findings with patient. Given return precautions. Patient will follow-up with your PCP. Patient stable for discharge. Time: 07:29 Medical Decision Making Medical Decision Making MDM Narrative: This is a 34-year-old female who presents emergency department with complaints of lump to the right side of her neck for the last 3 days. On arrival, vital signs within normal limits. Patient has palpable mobile 2 cm mass noted to her posterior chain. No overlying skin changes or warmth. Differential diagnoses include lymphadenopathy, mass, abscess. She has no red flag symptoms of suggest malignancy. She does report history of DVT provoked by control and . She is not on blood thinners at this time. No other complaints or concerns at this time. Differential Diagnosis Differential Diagnoses: The differential diagnosis associated with the presentation includes See above Discharge Plan Discharge Clinical Impression: Lymphadenopathy, cervical Patient Disposition: Home, Self-Care Instructions: Lymphadenopathy (ED) Additional Instructions: You were seen in the emergency department due to lump on the right side of your neck. This is consistent with a lymph node, this is inflammation of your lymphatic system often can be provoked due to a virus. This should slowly resolve over the next 4-6 weeks. Please keep a close eye on this region, if this starts to get enlarged, your skin begins to change different color, or you develop any chest pain or shortness of breath, please return for re-evaluation. Follow-up with your PCP regarding this visit. Prescriptions: No Action sumatriptan succinate [Imitrex] 50 mg tablet 50 mg PO Q2-4H PRN (Reason: migraine headache) Qty: 10 1RF Rx Instructions: do not exceed 4 doses per 24 hrs ferrous sulfate [Feosol] 325 mg (65 mg iron) tablet 325 mg PO DAILY Qty: 90 2RF ascorbate calcium (vitamin C) 500 mg tablet 500 mg PO DAILY Qty: 30 4RF valacyclovir 500 mg tablet 500 mg PO DAILY PRN (Reason: Cold Sores) Print Language: Khmer
== END 2024-05-07 08:00 | disposition home or self-care (01) ==
PROVIDERS: Emergency Provider Emergency Medicine; PCP Internal Medicine
DX: R59.0 Localized enlarged lymph nodes (principal); Z86.718 Personal history of other venous thrombosis and embolism
CPT/HCPCS: 99282; 99284

== ENCOUNTER 2024-05-21 06:32 | Outpatient (REF) | payer OTHER, SELFPAY ==
[2024-05-21 07:13] LABS: HCG Quantitative < 2 mIU/mL
== END 2024-05-21 06:33 | disposition home or self-care (01) ==
LOC: HO.LAB 06:32
PROVIDERS: PCP Internal Medicine; Visit Provider Emergency Medicine
DX: N91.2 Amenorrhea, unspecified (principal)
CPT/HCPCS: 36415; 84702

== ENCOUNTER 2024-08-21 15:30 | Outpatient (AMB) | payer OTHER, SELFPAY ==
[2024-08-21 16:01] VITALS: BP 108/72; PULSE 63; O2SAT 98; BMI 25.9
--- NOTE | 2024-08-21 16:01 | A.OFFPC_ITS ---
Vital Signs 08/21/24 16:01 Height 5 ft 3 in Weight 146 lb 0.6 oz BMI 25.9 BP 108/72 Blood Pressure Location Rt brachial Position Sitting Pulse 63 Pulse Source Pulse Oximeter Pulse Oximetry (%) 98 Oxygen Delivery Method Room Air Intake Visit Reasons: Physical Allergies No Known Allergies Allergy (Verified 08/21/24 16:15) Medication List - Last Reconciled 08/21/24 by Kenia Wilson PA-C ascorbate calcium (vitamin C) 500 mg PO DAILY ferrous sulfate (Feosol) 325 mg PO DAILY sumatriptan succinate (Imitrex) 50 mg PO Q2-4H PRN valacyclovir 500 mg PO DAILY PRN Tobacco use date assessed: 08/21/24 Dental Screening Dental Screen Date: 08/21/24 Did you have a dental visit in the last 12 months?: Yes Did you have a dental problem in the last 6 months where you did not have access to dental care?: No Was dental information given to patient?: Patient has dentist HPI Physical HPI Details 34-year-old female with past medical his tory of migraine, GERD and history of right leg DVT last seen January 2024 coming in for annual exam. Patient has been following with a counselor for anxiety and depression. She has no acute concerns today [facility] Medical History Anemia Calf cramp Hearing difficulty of both ears Blood pressure elevated without history of HTN Mouth sore Gastroenteritis Tiredness Palpitations Facial weakness Otitis media Migraine GERD (gastroesophageal reflux disease) Surgical History History of breast lump/mass excision Family History Father Cancer Hypertension FH: prostate cancer Mother Hypertension Substance abuse DVT (deep venous thrombosis) Paternal Grandmother Breast cancer Paternal Grandfather FH: testicular cancer Stomach cancer Maternal Grandmother DVT (deep venous thrombosis) Social History Housing: Apartment Alcohol intake: current Alcohol intake frequency: does not drink Patient Tobacco Use Status: Never used Tobacco Years Smoked: 2012 prn e-Cigarette/Vaping Use: Never Used Second Hand Smoke Exposure: No Advance Directives Date on File: 06/05/23 service: No Current occupational status: employed Current occupational exposures/hazards: No Cognitive needs: No Hearing needs: No Vision needs: No Questionnaire PHQ-9 Over the last 2 weeks, how often have you been bothered by any of the following problems? 1. Little interest or pleasure in doing things: nearly every day 2. Feeling down, depressed, or hopeless: nearly every day 3. Trouble falling or staying asleep, or sleeping too much: not at all 4. Feeling tired or having little energy: not at all 5. Poor appetite or overeating: not at all 6. Feeling bad about yourself - or that you are a failure or have let yourself or your family down: not at all 7. Trouble concentrating on things, such as reading the newspaper or watching television: not at all 8. Moving or speaking so slowly that other people could have noticed. Or the opposite - being so fidgety or restless that you have been moving around a lot more than usual: not at all 9. Thoughts that you would be better off or of hurting yourself in some way: not at all Total score: 6 Depression Screening Interpretation: Positive Depression Screening Follow-up: Existing condition and In treatment Depression Screening Done: Yes 10291 - PHQ-9 Billing: Yes Source: Developed by Drs. Bora Colmenares, Dahlia Tijerina, Yunior Porras and colleagues, with an educational sheila from [employer]. Thrive Questionnaire Date Thrive assessed: 02/14/24 I am a: Patient What is your living situation today?: I have a steady place to live Within the past 12 months, did the food you bought not last and you didn't have the money to get more?: Never true Within the past 12 months, did you worry whether your food would run out before you got money to buy more?: Never true Do you have trouble paying for medicines?: No Do you have trouble getting transportation to medical appointments?: No Do you have trouble paying your heating and electricity bill?: No Do you have trouble taking care of your child, family member or friend?: No Do you have trouble with day-to-day activities such as bathing, preparing meals, shopping, managing finances, etc.?: No Are you currently unemployed and looking for a job?: I choose not to answer this question Are you interested in more education?: I choose not to answer this question Please select the resources that you would like help with: None Currently or been in a relationship where the following occur: I choose not to answer THRIVE Score: 0 AUDIT C Alcohol Use Questionnaire (AUDIT-C) 1. How often do you have a drink containing alcohol?: Monthly or less 2. How many drinks containing alcohol do you have on a typical day when you are drinking?: 1 or 2 3. How often do you have six or more drinks on one occasion?: Never Total Score: 1 MERCY-7 AMB Questionnaire MERCY-7 Date MERCY - 7 assessed: 08/21/24 Feeling nervous, anxious, or on edge: 0 = Not at all Not being able to stop or control worryin = Not at all Worrying too much about different things: 0 = Not at all Trouble relaxin = Not at all Being so restless that it is hard to sit still: 0 = Not at all Becoming easily annoyed or irritable: 0 = Not at all Feeling afraid as if something awful might happen: 0 = Not at all Total MERCY-7 score (0-4 normal; 5-9 mild; 10-14 moderate; 15-21 severe): 0 Source: Developed by Drs. Bora Colmenares, Dahlia Tijerina, Yunior Porras and colleagues, with an educational sheila from [employer]. MERCY-7 Assessment Billing MERCY-7 Assessment Tool: MERCY-7 Assessment 95181 Review of Systems Const Denies body aches, Denies fatigue, Denies fever(s), Denies frequent falls, Denies headache(s) and Denies weakness Eyes Details: has not seen eye doctor Reports no additional complaints and Denies change in vision ENT Denies dysphagia, Denies dizziness, Denies facial pain, Denies headache(s), Denies nasal congestion and Denies odynophagia Card Denies chest pain, Denies syncope, Denies irregular heart rhythm, Denies leg edema, Denies lightheadedness and Denies dyspnea Resp Denies cough and Denies dyspnea GI Denies abdominal pain, Reports constipation (occasional), Denies dysphagia, Denies dyspepsia, Denies diarrhea, Denies nausea, Denies odynophagia and Denies vomiting Denies urinary frequency, Denies dysuria, Denies urinary hesitancy and Denies urinary urgency Musc Denies back pain and Denies myalgias Skin/Breast Reports system reviewed and no additional complaints, except as documented Neuro Denies dizziness, Denies syncope, Denies frequent falls, Denies headache(s) and Denies weakness Psych Reports no additional complaints Endo Denies fatigue Physical exam (Primary Care) Vital Signs: Last Vital Signs Pulse 63 08/21/24 16:01 BP 108/72 08/21/24 16:01 Pulse Ox 98 08/21/24 16:01 Oxygen Delivery Method Room Air 08/21/24 16:01 BMI result Body Mass Index 25.9 Tobacco/Smoking Status: Tobacco use Status Tobacco use date assessed 08/21/24 08/21/24 16:02 Patient Tobacco Use Status Never used Tobacco 08/21/24 16:01 e-Cigarette/Vaping Use Never Used 08/21/24 16:01 PHQ-9: PHQ-9 Score PHQ-9: Total score 6 08/21/24 16:26 Depression Screening Interpretation: Positive Depression Screening Follow-up: Existing condition and In treatment Thrive Assessment: Date of Thrive Assessment Date Thrive assessed 02/14/24 08/21/24 16:01 Currently or been in a relationship where the following occur: I choose not to answer Const General: cooperative, healthy appearing, comfortable and no acute distress Orientation/consciousness: patient oriented x3 HENMT Head: Yes normocephalic Ears: hearing grossly normal bilaterally, external ears normal, TM's normal bilaterally and EAC's normal General nose exam: Normal external nose present Face and sinus: Yes normal facial exam and Yes sinuses nontender Mouth: Normal oral and palatal mucosa present and tongue normal Throat: Yes posterior oropharynx normal Eyes General: appearance normal, both eyes and all related structures Conjunctivae: conjunctivae normal Pupils: Equal, round and reactive pupils present EOM: EOMs intact bilaterally and No Nystagmus present Neck Neck: Yes normal visual inspection, Yes full ROM and Yes no lymphadenopathy Chest Chest palpation & inspection: normal inspection of the chest Resp Effort & Inspection: normal respiratory effort Auscultation: clear to auscultation bilaterally, no crackles, no rales, no rhonchi, no wheezes and breath sounds present Cardio Rate: regular rate Rhythm: regular rhythm Peripheral pulses: radial pulses present and dorsalis pedis present GI Inspection: Yes normal to inspection and No Abdominal wall edema Palpation (GI): Soft to palpation, not firm and nontender Auscultation: normal bowel sounds Rectal Exam - Female: deferred General: Yes no CVA tenderness Back/Spine/Pelvis Back: no CVA tenderness Skin General skin exam: no rashes or lesions noted Neuro General: patient oriented x3 Cranial nerves: Yes Equal, round and reactive pupils present, Yes Midline tongue present, Yes Ability to bilaterally elevate shoulders present and No Nystagmus present Gait exam (Neuro): Normal gait present Extrem General: Yes normal to inspection, Yes full ROM, No no pedal edema and No edema Psych Speech and movement: Normal speech and movement present Affect: normal affect Insight: Good insight present (Psych) Judgement: Good judgement present (Psych) Immunizations Boostrix Tdap 2.5 Lf unit-8 mcg-5 Lf/0.5 mL intramuscular syringe Performing Provider: Kenia Wilson PA-C [place] [facility] [place] [place] [facility] Administered by: MARY KATE Chin on 08/21/24 16:26 Dose Route Admin Location Dispensed Lot Number Expiration Date NDC Lead Care Manager 0.5 mL IM Left Deltoid 0.5 mL [id number] 10/23/26 86120-304-88 [employer] VIS Given Date VIS Provided VIS Publication Date 08/21/24 Single Vaccine 21 Eligibility Eligibility Date Funding Source Not [facility] Eligible 08/21/24 Private Coding Level of Care Code Est Pt Prev Care 18-39y(13712) Diagnoses Anemia D64.9 Right leg DVT I82.401 Overweight (BMI 25.0-29.9) E66.3 Annual physical exam Z00.00 GERD (gastroesophageal reflux disease) K21.9 Migraine without aura and without status migrainosus, not intractable G43.009 Migraine type: without aura Status migrainosus presence: without status migrainosus Intractability: not intractable Depression F32.A Additional Codes MERCY-7 Assessment Billing - MERCY-7 Assessment Tool: MERCY-7 Assessment 89810 ([id number]) PHQ-9 - 37756 - PHQ-9 Billing: Yes ([id number]) Assessment & Plan Assessment & Plan (1) Anemia: Code(s): D64.9 - Anemia, unspecified Category: Medical Plan: We will continue to monitor blood work. Patient has not been taking iron supplement as prescribed ordered for iron panel as well. (2) Right leg DVT: Comment: May 2023 stop 12/2023 Code(s): I82.401 - Acute embolism and thrombosis of unspecified deep veins of right lower extremity Category: Medical Plan: Patient has a history of right leg DVT and is no longer being followed by Hematology and was discontinued on an oral anticoagulation. She is following with [facility] for control. She is requesting a D-dimer of to look for possible clot. This test was ordered however I did inform her that there are many reasons why D-dimer could be elevated this test is nonspecific. Denies any calf swelling, pain or redness and denies any shortness of breath. (3) Overweight (BMI 25.0-29.9): Code(s): E66.3 - Overweight Category: Medical Plan: Healthy diet and regular exercise is encouraged. (4) Annual physical exam: Code(s): Z00.00 - Encounter for general adult medical examination without abnormal findings Category: Medical Plan: Patient is up-to-date on all recommended routine screenings and vaccinations for her age. She follows with [facility] for routine Pap smears. Tetanus was updated today we will follow up in 1 year or sooner if new problems arise. Ordered for updated blood work (5) GERD (gastroesophageal reflux disease): Code(s): K21.9 - Gastro-esophageal reflux disease without esophagitis Category: Medical Plan: Avoid trigger foods such as citrus, tomato products, soda, caffeine, spicy foods and other foods that may be irritating to your stomach. Avoid laying flat 3-4 hours after eating and elevate the head of the bed 30 degrees to prevent acid from moving into the esophagus. (6) Migraine: Code(s): G43.909 - Migraine, unspecified, not intractable, without status migrainosus Category: Medical Qualifiers: Migraine type: without aura Status migrainosus presence: without status migrainosus Intractability: not intractable Qualified Code(s): G43.009 - Migraine without aura, not intractable, without status migrainosus Plan: Continue on sumatriptan as needed. (7) Depression: Code(s): F32.A - Depression, unspecified Category: Medical Plan: Following with a counselor denies any medication at this time. Plan This note was constructed using voice recognition software. While every effort has been made to ensure accuracy and baggage checker, still areas may have been included sometimes these areas may affect the content or meeting of the given symptoms. Total time spent caring for the patient today was 30 minutes. This includes time spent before the visit reviewing the chart, time spent during the visit, and time spent after the visit and documentation. Orders: Orders IRON PROFILE Today D64.9 - Anemia, unspecified Complete Blood Count Auto Diff Today Z00.00 - Encounter for general adult medical examination without abnormal findings TDaP Immunization 08/21/24 Z23 - Encounter for immunization D Dimer High Sensitivity Today I82.401 - Acute embolism and thrombosis of unspecified deep veins of right lower extremity Referrals Optometry Referral Z00.00 - Encounter for general adult medical examination without abnormal findings
== END 2024-08-21 16:34 | disposition home or self-care (01) ==
PROVIDERS: PCP Internal Medicine
DX: D64.9 Anemia, unspecified (principal); I82.401 Acute embolism and thrombosis of unspecified deep veins of right lower extremity; E66.3 Overweight; Z00.00 Encounter for general adult medical examination without abnormal findings; K21.9 Gastro-esophageal reflux disease without esophagitis; G43.009 Migraine without aura, not intractable, without status migrainosus; F32.A Depression, unspecified

== ENCOUNTER → 2024-08-21 15:30 | Outpatient (BNVA) | payer OTHER, SELFPAY | PROVIDERS: PCP Internal Medicine | DX: Z00.00 Encounter for general adult medical examination without abnormal findings (principal); Z23 Encounter for immunization; I82.401 Acute embolism and thrombosis of unspecified deep veins of right lower extremity; E66.3 Overweight; K21.9 Gastro-esophageal reflux disease without esophagitis; G43.009 Migraine without aura, not intractable, without status migrainosus; F32.A Depression, unspecified | CPT/HCPCS: 90471; 90715; 96127; 99395 ==

== ENCOUNTER 2024-08-22 06:09 | Outpatient (REF) | payer OTHER, SELFPAY ==
[2024-08-22 06:24] LABS: MANUAL DIFF FLAG NO
[2024-08-22 07:31] LABS: Basophils Absolute Auto 0.1 X10*3/uL (0.0-0.2); Basophils Percent Auto 0.7 % (0-2); Eosinophils Absolute Auto 0.1 X10*3/uL (0.0-0.4); Eosinophils Percent Auto 0.7 % (0-4); Hematocrit 36.3 % (37.0-47.0); Hemoglobin 11.8 g/dl (12.0-16.0); Imm Gran Abs Auto 0.02 X10*3/uL (0.00-0.03); Imm Gran Pct Auto 0.3 % (0.0-0.4); Lymphocytes Absolute Auto 2.3 X10*3/uL (1.2-4.9); Lymphocytes Percent Auto 32.3 % (20-40); Mean Corpuscular HGB Conc 32.5 g/dl (31.0-35.0); Mean Corpuscular Hemoglobin 27.2 pg (27.0-33.0); Mean Corpuscular Volume 83.6 fL (80.0-98.0); Mean Platelet Volume 9.7 fL (9.4-12.3); Monocytes Absolute Auto 0.5 X10*3/uL (0.1-1.2); Monocytes Percent Auto 7.4 % (2-11); Neutrophils Absolute Auto 4.2 x10*3/uL (2.0-8.3); Neutrophils Percent Auto 58.6 % (45-73); Platelet Count 308 X10*3/uL (160-400); Red Blood Count 4.34 X10*6/uL (4.20-5.50); Red Cell Distribution Width 14.1 % (11.0-16.0); White Blood Count 7.2 X10*3/uL (4.8-10.8)
[2024-08-22 07:37] LABS: D Dimer High Sensitivity 169 NG/ML
[2024-08-22 07:59] LABS: Iron 33 mcg/dL (30-160); Percent Iron Saturation 12 % (15-50); Total Iron Binding Capacity 267 mcg/dL (228-428); Unsaturated Iron Binding 234 ug/dL
== END 2024-08-22 06:10 | disposition home or self-care (01) ==
LOC: HO.LAB 06:09
PROVIDERS: PCP Internal Medicine
DX: Z00.00 Encounter for general adult medical examination without abnormal findings (principal); D64.9 Anemia, unspecified; I82.401 Acute embolism and thrombosis of unspecified deep veins of right lower extremity
CPT/HCPCS: 36415; 83540; 85025; 85379

== ENCOUNTER 2024-09-09 11:22 | Outpatient (REF) | payer OTHER, SELFPAY ==
[2024-09-09 12:54] LABS: HCG Quantitative 1317 mIU/mL
== END 2024-09-09 11:23 | disposition home or self-care (01) ==
LOC: HO.LAB 11:22
PROVIDERS: PCP Internal Medicine
DX: Z34.90 Encounter for supervision of normal pregnancy, unspecified, unspecified trimester (principal)
CPT/HCPCS: 36415; 84702

== ENCOUNTER 2024-09-17 12:17 | Outpatient (REF) | payer OTHER, SELFPAY ==
[2024-09-17 12:53] LABS: Estimated Average Glucose 97 mg/dL; Hemoglobin A1C 85.0897 umol/L; Total Hemoglobin (HGBA1C) 2748.8604 umol/L
[2024-09-17 13:04] LABS: Albumin Level 3.9 g/dL (3.5-5.0); Anion Gap 9 (12-20); Aspartate Amino Transferase 25 U/L (5-31); Bilirubin Total 0.3 mg/dL (0.0-1.0); Blood Urea Nitrogen 10 mg/dL (9-16); Calcium 9.3 mg/dL (8.4-10.2); Carbon Dioxide 24 mmol/L (22-29); Chloride 106 mmol/L (96-108); Estimated Glomerular Filt Rate > 60; Glucose Random 99 mg/dL (60-115); Potassium 3.9 mmol/L (3.3-5.1); Sodium 135 mmol/L (135-145); Total Protein 6.5 g/dL (6.5-8.0)
[2024-09-17 13:24] LABS: Alanine Aminotransferase 24 U/L (0-31); Alkaline Phosphatase 45 U/L (39-117)
== END 2024-09-17 12:18 | disposition home or self-care (01) ==
LOC: HO.LAB 12:17
PROVIDERS: PCP Internal Medicine; Visit Provider Internal Medicine
DX: Z34.90 Encounter for supervision of normal pregnancy, unspecified, unspecified trimester (principal)
CPT/HCPCS: 36415; 80053; 83036

== ENCOUNTER 2024-10-21 15:26 | Outpatient (AMB) | payer OTHER, SELFPAY ==
--- NOTE | 2024-10-21 15:29 | A.OFFPC_ITS ---
Vital Signs 10/21/24 15:30 Height 5 ft 3 in BMI Reason not done Patient refused/unable BP 100/60 Blood Pressure Location Lt brachial Position Sitting Temp 97.1 F Temp Source Skin Intake Visit Reasons: [facility] 10/13 Intake Note: Patient is here to follow-up after a visit the emergency department at [facility] on 10/13/24. Lumber Estimator Required: No Creative Art Director: Not Required per policy Accompanied by: Self / Same As Patient Allergies No Known Allergies Allergy (Verified 10/21/24 16:11) Medication List - Last Reconciled 10/21/24 by Sahara Shea PA-C ascorbate calcium (vitamin C) 500 mg PO DAILY enoxaparin 60 mg subcut ferrous sulfate (Feosol) 325 mg PO DAILY omega 2-vhb-qgv-fish oil 1,000 (120-180) mg (Fish Oil) 1 cap PO DAILY sumatriptan succinate (Imitrex) 50 mg PO Q2-4H PRN valacyclovir 500 mg PO DAILY PRN Tobacco use date assessed: 10/21/24 Dental Screening Dental Screen Date: 10/21/24 Did you have a dental visit in the last 12 months?: Yes Did you have a dental problem in the last 6 months where you did not have access to dental care?: No Was dental information given to patient?: Patient has dentist [facility] Medical History Anemia Calf cramp Hearing difficulty of both ears Blood pressure elevated without history of HTN Mouth sore Gastroenteritis Tiredness Palpitations Facial weakness Otitis media Migraine GERD (gastroesophageal reflux disease) Surgical History History of breast lump/mass excision Family History Father Cancer Hypertension FH: prostate cancer Mother Hypertension Substance abuse DVT (deep venous thrombosis) Paternal Grandmother Breast cancer Paternal Grandfather FH: testicular cancer Stomach cancer Maternal Grandmother DVT (deep venous thrombosis) Social History Housing: Apartment Alcohol intake: current Alcohol intake frequency: does not drink Patient Tobacco Use Status: Never used Tobacco Years Smoked: 2012 prn e-Cigarette/Vaping Use: Never Used Second Hand Smoke Exposure: No Advance Directives Date on File: 06/05/23 service: No Current occupational status: employed Current occupational exposures/hazards: No Cognitive needs: No Hearing needs: No Vision needs: No Questionnaire PHQ-9 Over the last 2 weeks, how often have you been bothered by any of the following problems? 1. Little interest or pleasure in doing things: not at all 2. Feeling down, depressed, or hopeless: not at all 3. Trouble falling or staying asleep, or sleeping too much: not at all 4. Feeling tired or having little energy: not at all 5. Poor appetite or overeating: not at all 6. Feeling bad about yourself - or that you are a failure or have let yourself or your family down: not at all 7. Trouble concentrating on things, such as reading the newspaper or watching television: not at all 8. Moving or speaking so slowly that other people could have noticed. Or the opposite - being so fidgety or restless that you have been moving around a lot more than usual: not at all 9. Thoughts that you would be better off or of hurting yourself in some way: not at all Total score: 0 Depression Screening Interpretation: Negative Depression Screening Done: Yes 80595 - PHQ-9 Billing: Yes Source: Developed by Drs. Bora Colmenares, Dahlia Tijerina, Yunior Porras and colleagues, with an educational sheila from [employer]. Thrive Questionnaire Date Thrive assessed: 10/21/24 AUDIT C Alcohol Use Questionnaire (AUDIT-C) 1. How often do you have a drink containing alcohol?: Monthly or less 2. How many drinks containing alcohol do you have on a typical day when you are drinking?: 1 or 2 Total Score: 1 Score Reviewed/Action Taken: Yes MERCY-7 AMB Questionnaire MERCY-7 Date MERCY - 7 assessed: 10/21/24 Feeling nervous, anxious, or on edge: 0 = Not at all Not being able to stop or control worryin = Not at all Worrying too much about different things: 0 = Not at all Trouble relaxin = Not at all Being so restless that it is hard to sit still: 0 = Not at all Becoming easily annoyed or irritable: 0 = Not at all Feeling afraid as if something awful might happen: 0 = Not at all Total MERCY-7 score (0-4 normal; 5-9 mild; 10-14 moderate; 15-21 severe): 0 Source: Developed by Drs. Bora Colmenares, Dahlia Tijerina, Yunior Porras and colleagues, with an educational sheila from [employer]. MERCY-7 Assessment Billing MERCY-7 Assessment Tool: MERCY-7 Assessment 59587 Physical exam (Primary Care) Vital Signs: Last Vital Signs Temp 97.1 F 10/21/24 15:30 BP 100/60 10/21/24 15:30 Care Plan Goal for BP management: BP 100/60 normal range at Goal Tobacco/Smoking Status: Tobacco use Status Tobacco use date assessed 10/21/24 10/21/24 15:35 Patient Tobacco Use Status Never used Tobacco 10/21/24 15:35 e-Cigarette/Vaping Use Never Used 10/21/24 15:35 PHQ-9: PHQ-9 Score PHQ-9: Total score 0 10/21/24 15:37 Depression Screening Interpretation: Negative Thrive Assessment: Date of Thrive Assessment Date Thrive assessed 10/21/24 10/21/24 15:35 Coding Level of Care Code Est Pt Level 4 (86658) Complex EM visit Add On G2211 Diagnoses Pulmonary embolism I26.99 Right leg DVT I82.401 12 weeks gestation of Z3A.12 Additional Codes PHQ-9 - 18682 - PHQ-9 Billing: Yes ([id number]) MECRY-7 Assessment Billing - MERCY-7 Assessment Tool: MERCY-7 Assessment 28931 ([id number]) Assessment & Plan Assessment & Plan (1) Pulmonary embolism: Code(s): I26.99 - Other pulmonary embolism without acute cor pulmonale Category: Medical Plan: Recent diagnosis by CTA at [facility] on 10/11/2024. Currently on Lovenox b.i.d. taking as prescribed. Patient will be referred to Cardiology, Hematology/Oncology and vascular surgery along with instructions to follow up with OBGYN at [facility] [place] women as scheduled, Condition is stable will continue to monitor. 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 Currently on Lovenox prescribed by [facility]. Will send referrals. Condition is stable will continue to monitor. (3) 12 weeks gestation of : Code(s): Z3A.12 - 12 weeks gestation of Category: Medical Plan: Patient being followed by [facility] in women. Patient denies any OBGYN related complaints at today's visit. Condition is stable. Will continue to monitor. Plan Plan - Continue administration of Lovenox for anticoagulation throughout the duration of . - Referral to hematology and oncology to evaluate the etiology of recurrent thromboembolic events, including assessment for potential underlying malignancy. - Referral to cardiology to evaluate palpitations, with consideration of further cardiac evaluation such as a stress test or additional echocardiography if indicated. - Referral to vascular surgery as precautionary measure in relation to recurrent DVT. - Written work restrictions for light duty engagement to avoid prolonged standing or heavy lifting due to current and thromboembolic risks. Orders: Referrals Hematology & Oncology Referral I26.99 - Other pulmonary embolism without acute cor pulmonale, I82.401 - Acute embolism and thrombosis of unspecified deep veins of right lower extremity, U07.1 - COVID-19, Z3A.12 - 12 weeks gestation of Vascular Surgery Referral I26.99 - Other pulmonary embolism without acute cor pulmonale, I82.401 - Acute embolism and thrombosis of unspecified deep veins of right lower extremity, Z3A.12 - 12 weeks gestation of Cardiology Referral I26.99 - Other pulmonary embolism without acute cor pulmonale, I82.401 - Acute embolism and thrombosis of unspecified deep veins of right lower extremity, Z3A.12 - 12 weeks gestation of Patient Instructions: Patient Instructions - Continue taking Lovenox as prescribed without interruption. - Contact emergency services (911) immediately if experiencing significant shortness of breath, severe chest pain, or any alarming symptoms. - Follow up with hematology, oncology, cardiology, and vascular surgery as per the referrals. - Avoid NSAIDs and ensure regular follow-up with her RV TECHNICIAN for and obstetric care. - Adhere to work restrictions and follow employer guidance on light-duty tasks. - Maintain a healthy lifestyle with moderation in physical activities to avoid exacerbation of symptoms. Scribe Plan - Not visible on output: History of Present Illness The patient is a 34-year-old female presenting with concerns related to pulmonary embolism and deep vein thrombosis (DVT) during the early stages of . She was admitted to [facility] from October 11 to , following an initial presentation on the with right leg pain. On October 09, a DVT was confirmed in the right leg. She was started on Lovenox and discharged home from the emergency department at that time. Shortly thereafter, on October 11, she returned with symptoms of dizziness, chest pain, and shortness of breath, leading to hospitalization and confirmation of a pulmonary embolism via CT angiography. An echocardiogram at that time showed normal results. The patient reported the onset of chest palpitations occurring during rest and mild exertion, such as ascending stairs. Previously, in May 2023, she was treated with low molecular weight heparin (Lovenox) for a DVT in the right lower extremity. The treatment lasted approximately six months. The DVT resolved as per follow-up imaging in September 2023. Currently, the patient is 11 weeks and is prescribed Lovenox, which is administered every twelve hours for anticoagulation during since she was discharged at [facility] on 10/13/2024. She is additionally exploring naturopathic treatments but has not commenced them. Social History - Employment: Works in [employer]. - Family Status: , 11 weeks gestation; details on marital status or children not provided. - Functional Status: Engages in active employment requiring movement and occasional physical exertion. - Exercise and Activity Level: Experiences palpitations with minimal exertion, impacting physical activity. - Current Nutritional Intake: Discussed potential naturopathic treatments; otherwise, nutrition details not specified. Review of Systems - Cardiovascular: Reports palpitations. - Respiratory: Denies current shortness of breath. - Musculoskeletal: Denies leg pain or swelling. Physical Exam Appearance: Alert. Oriented X3. No acute distress. Head: Normal external exam. Normocephalic. Atraumatic. Eyes: Pupils are equal, round, and reactive to light. Extraocular movements intact. Conjunctiva and sclera normal. Eyelids normal. Ears: External auditory canal normal. Throat: Pharynx normal. Uvula midline. Moist mucous membranes. Neck: Normal inspection. Neck supple. Full range of motion. No meningeal signs. Cardiovascular: Normal heart rate and rhythm. Heart sound normal. No murmurs noted. Pulses normal throughout. Noted palpitations with an extra beat. Respiratory: No respiratory distress. Painless inspiration. Breath sounds normal. No wheezes/rales/rhonchi noted. Chest nontender. No accessory muscle usage noted or decreased air movement noted. Abdomen: Soft and nontender. Back: Full range of motion noted. Skin: Skin warm and dry. Normal skin color. Normal skin turgor. No rashes/lesions/lacerations noted. Extremities: No lower extremity edema. Extremities exhibit normal range of motion. Extremities nontender. Neuro: Oriented X 3. No motor deficit. No sensory deficit. Reflexes normal. Results - Imaging: CT angiography of the chest confirmed pulmonary embolism. Echocardiogram reported as normal. - Previous imaging: Leg ultrasound confirmed DVT in right leg in October 2022; resolved as per September 2023 ultrasound. Plan - Continue administration of Lovenox for anticoagulation throughout the duration of . - Referral to hematology and oncology to evaluate the etiology of recurrent th romboembolic events, including assessment for potential underlying malignancy. - Referral to cardiology to evaluate palpitations, with consideration of further cardiac evaluation such as a stress test or additional echocardiography if indicated. - Referral to vascular surgery as precautionary measure in relation to recurrent DVT. - Written work restrictions for light duty engagement to avoid prolonged standing or heavy lifting due to current and thromboembolic risks. Patient was informed and verbally consented to the use of an ambient scribe for clinic note documentation during this visit. Discussion Notes I discussed with the patient the nature of her pulmonary embolism and DVT during her and the necessity for anticoagulation therapy with Lovenox throughout the . The potential risks related to blood clots, such as movement to the lungs or brain causing potentially fatal consequences, were emphasized, and she was advised on the urgency of seeking medical attention if she experiences worsening symptoms. I provided referrals to hematology, oncology, and cardiology to further investigate underlying causes and assess for cancer risk, structural heart disease, or other contributing factors. I explained the work concessions provided for her current state and agreed upon a plan to limit physical exertion and provide work notes as needed. The necessity of continued follow-ups with her RV TECHNICIAN and primary care physician was also mentioned to ensure comprehensive care management during her . Patient Instructions - Continue taking Lovenox as prescribed without interruption. - Contact emergency services (911) immediately if experiencing significant shortness of breath, severe chest pain, or any alarming symptoms. - Follow up with hematology, oncology, cardiology, and vascular surgery as per the referrals. - Avoid NSAIDs and ensure regular follow-up with her RV TECHNICIAN for and obstetric care. - Adhere to work restrictions and follow employer guidance on light-duty tasks. - Maintain a healthy lifestyle with moderation in physical activities to avoid exacerbation of symptoms.
[2024-10-21 15:30] VITALS: BP 100/60; TEMP 36.2
== END 2024-10-21 16:09 | disposition home or self-care (01) ==
PROVIDERS: PCP Internal Medicine
DX: I26.99 Other pulmonary embolism without acute cor pulmonale (principal); I82.401 Acute embolism and thrombosis of unspecified deep veins of right lower extremity; Z3A.12 12 weeks gestation of pregnancy

== ENCOUNTER → 2024-10-21 15:26 | Outpatient (BNVA) | payer OTHER, SELFPAY | PROVIDERS: PCP Internal Medicine | DX: I26.99 Other pulmonary embolism without acute cor pulmonale (principal); I82.401 Acute embolism and thrombosis of unspecified deep veins of right lower extremity | CPT/HCPCS: 96127; 99212 ==

== ENCOUNTER 2024-11-02 06:15 | Emergency (ER) | payer OTHER, SELFPAY ==
[2024-11-02 06:16] VITALS: BP 112/61; PULSE 96; RESP 16; TEMP 37.2; O2SAT 97; BMI 27.4
--- NOTE | 2024-11-02 06:56 | ED_ITS ---
HPI - General Adult General Chief complaint: Upper Respiratory Symptoms Stated complaint: vomiting, body aches Time Seen by Provider: 11/02/24 06:33 Source: patient and RN notes reviewed Mode of arrival: ambulatory Limitations: no limitations History of Present Illness ED Provider: Ngoc Mitchell PA-C HPI narrative: This is a 34-year-old female, 12 weeks - sees [facility] OBGYN, who presents emergency department with concerns for cough, vomiting, headache and back pain. Patient reports that her symptoms started yesterday. She states that she had a fever of 100.8 yesterday. She states that she has a history of DVTs, of recent, she was diagnosed with a DVT and PE at [facility], on October 11. She was hospitalized between October 11 through October 13. At that time she had a normal ultrasound. No complications with the thus far. Patient has been compliant taking her Lovenox twice a day. She states that she has had slight chest pain only with coughing, denies any pleuritic chest pain. She also reports some back pain which only occurs with coughing. She denies any shortness of breath. Denies any palpitations. She states that she was recently in contact with someone that tested positive for the flu. She does endorse nausea with vomiting She had a fever of 100.8. Per primary care note, patient was admitted to [facility] from October 11 through October 13, with initial presentation on the with right leg pain She was diagnosed with a pulmonary embolism on 10/11. She has had intermittent chest pain secondary to the cough. She denies any lower abdominal pain, no vaginal bleeding or discharge. No other complaints or concerns at this time. MD complaint: Cough, headache Relieving factors: none Exacerbating factors: none Associated symptoms: cough Related Data Home Medications ?Medication ?Instructions ?Recorded ?Confirmed valacyclovir 500 mg tablet 500 mg PO DAILY PRN Cold Sores 08/16/23 11/01/24 enoxaparin 80 mg/0.8 mL 60 mg subcut DAILY 10/21/24 11/01/24 subcutaneous syringe omega 7-cvt-qqq-fish oil 1,000 mg 1 cap PO DAILY 10/21/24 11/01/24 (120 mg-180 mg) capsule (Fish Oil) acetylcysteine 600 mg capsule (NAC) 600 mg PO DAILY 11/01/24 11/01/24 diphenhydramine HCl 50 mg capsule 50 mg PO DAILY 11/01/24 11/01/24 (Banophen) metoclopramide HCl 10 mg tablet 10 mg PO DAILY 11/01/24 11/01/24 Previous Rx's ?Medication ?Instructions ?Recorded sumatriptan succinate 50 mg tablet 50 mg PO Q2-4H PRN migraine 07/24/23 (Imitrex) headache #10 tabs ascorbate calcium (vitamin C) 500 500 mg PO DAILY #30 tabs 08/22/24 mg tablet ferrous sulfate 325 mg (65 mg 325 mg PO DAILY #90 tabs 08/22/24 iron) tablet (Feosol) Allergies Allergy/AdvReac Type Severity Reaction Status Date / Time No Known Allergies Allergy Verified 11/02/24 06:21 Review of Systems 2 Review of Systems: Yes all other systems are reviewed and are negative Constitutional: Constitutional: Reports as per [facility] Past Medical History Attestation statement: The following information was validated with the patient. Medical History Anemia Calf cramp Hearing difficulty of both ears Blood pressure elevated without history of HTN Mouth sore Gastroenteritis Tiredness Palpitations Facial weakness Otitis media Migraine GERD (gastroesophageal reflux disease) Surgical History History of breast lump/mass excision Family History Family History Father Cancer Hypertension FH: prostate cancer Mother Hypertension Substance abuse DVT (deep venous thrombosis) Paternal Grandmother Breast cancer Paternal Grandfather FH: testicular cancer Stomach cancer Maternal Grandmother DVT (deep venous thrombosis) Social History Social History Housing: Apartment Alcohol intake: current Alcohol intake frequency: does not drink Patient Tobacco Use Status: Never used Tobacco Years Smoked: 2012 prn e-Cigarette/Vaping Use: Never Used Second Hand Smoke Exposure: No Advance Directives: Yes Advance Directives on File: Yes Advance Directives Date on File: 06/05/23 Do you have a plan to hurt others: No Plan service: No Current occupational status: employed Current occupational exposures/hazards: No Cognitive needs: No Hearing needs: No Vision needs: No Physical Exam ED Vital Signs: Vital Signs - 24 hr 11/02/24 06:16 Temperature 98.9 F Pulse Rate 96 Respiratory Rate 16 Blood Pressure 112/61 Pulse Oximetry 97 Oxygen Delivery Method Room Air BMI result Body Mass Index 27.4 Const General: cooperative, comfortable and no acute distress Orientation/consciousness: patient oriented x3 Limitations: no limitations HENMT Head: Yes normal to inspection, Yes normocephalic and Yes atraumatic Ears: hearing grossly normal bilaterally and TM's normal bilaterally General nose exam: Normal external nose present Face and sinus: Yes normal facial exam Mouth: Normal oral and palatal mucosa present, oropharynx normal and moist mucous membranes Throat: Yes posterior oropharynx normal Eyes General: appearance normal, both eyes and all related structures Eyelids: Yes eyelids normal Conjunctivae: conjunctivae normal Sclerae: sclerae normal Pupils: Equal, round and reactive pupils present EOM: EOMs intact bilaterally Neck Neck: Yes normal visual inspection, Yes full ROM and Yes no lymphadenopathy Lymphatic: no lymphadenopathy noted Chest Chest palpation & inspection: normal inspection of the chest Resp Effort & Inspection: normal respiratory effort and able to speak in complete sentences Auscultation: clear to auscultation bilaterally, no crackles, no rales, no rhonchi and no wheezes Cardio Rate: regular rate Rhythm: regular rhythm Heart sounds: S1 normal heart sound present and S2 normal heart sound present GI Other: Abdomen is soft, nontender, nondistended. Inspection: Yes normal to inspection Skin General skin exam: no rashes or lesions noted Trauma: no lacerations or abrasions Wounds: no wounds Neuro General: patient oriented x3 and moves all extremities Cranial nerves: Yes Equal, round and reactive pupils present Extrem General: Yes normal to inspection Right upper extremity: normal to inspection Left upper extremity: normal to inspection Right lower extremity: normal to inspection Left lower extremity: normal to inspection Course Reevaluation(s) Reevaluation #1: Patient is on Lovenox 70 mg, confirm this with her pharmacy. Will administer Lovenox 70 mg as she should not miss this dosage. Will continue to monitor. Pending viral swabs. So far her labs returned, she has no leukocytosis, normocytic anemia with an H&H of 10.5/31.1, chemistry with no significant electrolyte derangement. Negative troponin. Normal EKG, BNP 18. Urine does not appear to be infected. Pending viral swabs. Time: 08:05 Reevaluation #2: Patient tested positive for the flu. This is consistent with her overall presentation today. She has no significant chest pain, normal BNP, normal troponin, normal EKG. Discussed workup with patient. Given strict return precautions. She is well-appearing, stable for discharge. Time: 08:35 Medications Administered Discontinued Medications Generic Name Dose Route Start Last Admin Trade Name Freq PRN Reason Stop Dose Admin Enoxaparin Sodium 70 mg 11/02/24 08:03 11/02/24 08:34 Enoxaparin Sodium 80 Mg/0.8 Ml Syringe SUBCUT 11/02/24 08:04 70 mg ONCE ONE Administration Sodium Chloride 1,000 mls @ 999 mls/hr 11/02/24 07:13 11/02/24 07:50 Ns IV 11/02/24 08:13 999 mls/hr .Q1H1M ONE Administration Medical Decision Making Medical Decision Making [facility] Narrative: This is a 34-year-old female, 12 week , with history of pulmonary embolism and DVT on Lovenox b.i.d., who presents emergency department with concerns for cough, nausea, vomiting, headache, and back pain. She was recently diagnosed with a PE at [facility] on 10/11/2024. She has been compliant on Lovenox. She has had no lower abdominal pain, vaginal bleeding or discharge. She reports recent exposure to flu. On arrival, she is well-appearing, in no acute distress. She is not hypoxic or tachycardic. Chest pain only occurs with coughing. Symptoms likely secondary to URI like symptoms. Given history, will obtain labs, EKG, and viral swabs. We will also hydrate with 1 L IV fluids. She declines wanting any nausea medication at this time. She has had no abdominal pain, no vaginal discharge or bleeding. Differential Diagnosis Differential Diagnoses: The differential diagnosis associated with the presentation includes Influenza, COVID, URI Admission/Observation Consideration of admission/observation: Escalation of care including admission/observation considered Lab Data [facility] Lab Attestation statement: I reviewed the patient's lab results. 11/02/24 07:31 11/02/24 07:32 Labs: Lab Results 11/02/24 11/02/24 Range/Units 07:31 07:32 WBC 8.2 (4.8-10.8) X10*3/uL RBC 3.72 L (4.20-5.50) X10*6/uL Hgb 10.5 L (12.0-16.0) g/dl Hct 31.1 L (37.0-47.0) % MCV 83.6 (80.0-98.0) fL MCH 28.2 (27.0-33.0) pg MCHC 33.8 (31.0-35.0) g/dl RDW 13.2 (11.0-16.0) % Plt Count 238 (160-400) X10*3/uL MPV 8.9 L (9.4-12.3) fL Immature Gran % (Auto) 0.5 H (0.0-0.4) % Neut % (Auto) 78.0 H (45-73) % Lymph % (Auto) 11.5 L (20-40) % Parmer % (Auto) 8.9 (2-11) % Eos % (Auto) 0.7 (0-4) % Baso % (Auto) 0.4 (0-2) % Lymph # (Auto) 0.9 L (1.2-4.9) X10*3/uL [place]mer # (Auto) 0.7 (0.1-1.2) X10*3/uL Eos # (Auto) 0.1 (0.0-0.4) X10*3/uL Baso # (Auto) 0.0 (0.0-0.2) X10*3/uL Abs Immat Gran (auto) 0.04 H (0.00-0.03) X10*3/uL Absolute Neuts (auto) 6.4 (2.0-8.3) x10*3/uL Absolute Nucleated RBC 0.000 (0.0-0.012) X10*3/uL Nucleated RBC % (auto) 0.0 (0.0-0.2) /100WBC Sodium 138 (135-145) mmol/L Potassium 3.8 (3.3-5.1) mmol/L Chloride 108 (96-108) mmol/L Carbon Dioxide 22 (22-29) mmol/L Anion Gap 12 (12-20) BUN 9 (9-16) mg/dL Creatinine 0.56 (0.5-1.4) mg/dL Estim Creat Clear Calc 130.4 Estimated GFR > 60 Random Glucose 84 (60-115) mg/dL Calcium 9.2 (8.4-10.2) mg/dL Magnesium 1.8 (1.6-2.6) mg/dL Total Bilirubin 0.1 (0.0-1.0) mg/dL Direct Bilirubin < 0.2 (0.0-0.5) mg/dL AST 25 (5-31) U/L ALT 19 (0-31) U/L Alkaline Phosphatase 40 (39-117) U/L Troponin I High Sens < 2.7 (<3.5-17.0) ng/L B-Natriuretic Peptide 18 (<100) pg/mL Total Protein 6.8 (6.5-8.0) g/dL Albumin 3.6 (3.5-5.0) g/dL Urine Color Yellow Urine Appearance Clear Urine pH 6.0 (5.0-9.0) Ur Specific [place] >= 1.030 H (1.005-1.025) Urine Protein Trace (Neg-Trace) mg/dL Urine Glucose (UA) Negative (Negative) mg/dL Urine Ketones Negative (Negative) mg/dL Urine Blood Negative (Negative) Urine Nitrite Negative (Negative) Ur Leukocyte Esterase Negative (Negative) Influenza Type A (PCR) POSITIVE A (Negative) Influenza Type B (PCR) NEGATIVE (Negative) RSV RNA Qual (PCR) NEGATIVE (Negative) SARS-CoV-2 RNA (RT-PCR) NEGATIVE (Negative) Radiology Impression Discussion of test interpretation with radiology: I have reviewed the radiologist's reading. External Record Review External record reviewed: Inpatient record, Office record, Outpatient record, Prior outpatient labs, Prior outpatient radiology, Primary care record and Outside ED record Discharge Plan Discharge Clinical Impression: Influenza A Patient Disposition: Home, Self-Care Instructions: Influenza (ED) Additional Instructions: You were seen in the emergency department due to cough, vomiting, headache. You tested positive for influenza A. This is the flu. It is very important to stay well hydrated. You may take Tylenol as needed for pain and symptoms. You need to follow-up with your OBGYN. Continue taking all at-home medications as directed. You received Lovenox dosage in the department today as you are currently on this. If any new or worsening symptoms occur including but not limited to severe chest pain, severe shortness of breath, please seek emergent care. Prescriptions: No Action sumatriptan succinate [Imitrex] 50 mg tablet 50 mg PO Q2-4H PRN (Reason: migraine headache) Qty: 10 1RF Rx Instructions: do not exceed 4 doses per 24 hrs acetylcysteine [NAC] 600 mg Capsule 600 mg PO DAILY diphenhydramine HCl [Banophen] 50 mg capsule 50 mg PO DAILY metoclopramide HCl 10 mg Tablet 10 mg PO DAILY valacyclovir 500 mg tablet 500 mg PO DAILY PRN (Reason: Cold Sores) ferrous sulfate [Feosol] 325 mg (65 mg iron) tablet 325 mg PO DAILY Qty: 90 2RF ascorbate calcium (vitamin C) 500 mg tablet 500 mg PO DAILY Qty: 30 4RF enoxaparin 80 mg/0.8 mL syringe 60 mg subcut DAILY omega 7-awl-dxr-fish oil [Fish Oil] 1,000 (120-180) mg capsule 1 cap PO DAILY Stand Alone Forms: Work/School Release Print Language: Sami
--- NOTE | 2024-11-02 07:09 | ECG_ITS ---
Test Reason : CHEST PAIN Blood Pressure : */* mmHG Vent. Rate : 87 BPM Atrial Rate : 87 BPM P-R Int : 140 ms QRS Dur : 82 ms QT Int : 342 ms P-R-T Axes : 60 42 21 degrees QTcB Int : 411 ms Normal sinus rhythm Normal ECG When compared with ECG of 27-Nov-2013 07:37, No significant change was found Referred By: Ngoc Mitchell Electronically Signed By: MATTHEW ERAZO
[2024-11-02 07:37] LABS: MANUAL DIFF FLAG NO
[2024-11-02 07:42] LABS: Basophils Percent Auto 0.4 % (0-2); Eosinophils Absolute Auto 0.1 X10*3/uL (0.0-0.4); Eosinophils Percent Auto 0.7 % (0-4); Hematocrit 31.1 % (37.0-47.0); Hemoglobin 10.5 g/dl (12.0-16.0); Imm Gran Abs Auto 0.04 X10*3/uL (0.00-0.03); Imm Gran Pct Auto 0.5 % (0.0-0.4); Lymphocytes Absolute Auto 0.9 X10*3/uL (1.2-4.9); Lymphocytes Percent Auto 11.5 % (20-40); Mean Corpuscular HGB Conc 33.8 g/dl (31.0-35.0); Mean Corpuscular Hemoglobin 28.2 pg (27.0-33.0); Mean Corpuscular Volume 83.6 fL (80.0-98.0); Mean Platelet Volume 8.9 fL (9.4-12.3); Monocytes Absolute Auto 0.7 X10*3/uL (0.1-1.2); Monocytes Percent Auto 8.9 % (2-11); Neutrophils Absolute Auto 6.4 x10*3/uL (2.0-8.3); Platelet Count 238 X10*3/uL (160-400); Red Blood Count 3.72 X10*6/uL (4.20-5.50); Red Cell Distribution Width 13.2 % (11.0-16.0); White Blood Count 8.2 X10*3/uL (4.8-10.8)
[2024-11-02 07:46] LABS: Appearance Urine Clear; Color Urine Yellow; Glucose Urine UA Negative (Negative); Leukocyte Esterase Urine Negative (Negative); Nitrite Urine Negative (Negative); Specific Gravity - Urine >= 1.030 (1.005-1.025); Urine Blood Negative (Negative); Urine Ketones Negative (Negative); Urine Protein Trace mg/dL (Neg-Trace)
[2024-11-02] MEDS: 0.9 % Sodium Chloride 1,000 ML 999 ML IV (07:50)
[2024-11-02 07:52] LABS: Alanine Aminotransferase 19 U/L (0-31); Albumin Level 3.6 g/dL (3.5-5.0); Alkaline Phosphatase 40 U/L (39-117); Anion Gap 12 (12-20); Aspartate Amino Transferase 25 U/L (5-31); Bilirubin Direct < 0.2 mg/dL (0.0-0.5); Bilirubin Total 0.1 mg/dL (0.0-1.0); Blood Urea Nitrogen 9 mg/dL (9-16); Calcium 9.2 mg/dL (8.4-10.2); Carbon Dioxide 22 mmol/L (22-29); Chloride 108 mmol/L (96-108); Creatinine Clr Calc Pharmacy 130.4; Estimated Glomerular Filt Rate > 60; Glucose Random 84 mg/dL (60-115); Magnesium 1.8 mg/dL (1.6-2.6); Potassium 3.8 mmol/L (3.3-5.1); Sodium 138 mmol/L (135-145); Total Protein 6.8 g/dL (6.5-8.0)
[2024-11-02 07:57] LABS: B Type Natriuretic Peptide 18 pg/mL (<100)
[2024-11-02 08:00] LABS: Troponin-I High Sensitivity < 2.7 ng/L (<3.5-17.0)
[2024-11-02 08:14] LABS: Influenza A PCR POSITIVE (Negative); Influenza B PCR NEGATIVE (Negative); Resp Syncy Virus RNA Qual PCR NEGATIVE (Negative); SARS COV2 PCR INHOUSE NEGATIVE (Negative)
[2024-11-02] MEDS: Enoxaparin Sodium 80 MG/0.8 ML SYRINGE 70 MG SUBCUT (08:34)
[2024-11-02 09:04] VITALS: BP 107/68; PULSE 77; RESP 20; TEMP 36.9; O2SAT 100
== END 2024-11-02 09:05 | disposition home or self-care (01) ==
PROVIDERS: Physician Assistant Medical; Emergency Provider Emergency Medicine; PCP Internal Medicine
DX: O98.511 Other viral diseases complicating pregnancy, first trimester (principal); J10.1 Influenza due to other identified influenza virus with other respiratory manifestations; Z3A.12 12 weeks gestation of pregnancy; R05.9 Cough, unspecified; Z03.818 Encounter for observation for suspected exposure to other biological agents ruled out
CPT/HCPCS: 0241U; 36415; 80048; 80076; 81003; 83735; 83880; 84484; 85025; 93005; 96372; 99284; J1650

== ENCOUNTER → 2024-11-02 07:09 | Outpatient (BNV) | payer OTHER, SELFPAY | PROVIDERS: Emergency Provider Emergency Medicine; PCP Internal Medicine; Visit Provider Internal Medicine | DX: R07.9 Chest pain, unspecified (principal) | CPT/HCPCS: 93010 ==

== ENCOUNTER 2024-11-11 15:50 | Outpatient (AMB) | payer OTHER, SELFPAY ==
[2024-11-11 15:53] VITALS: BP 102/60; PULSE 74; TEMP 36.2; O2SAT 97; BMI 28.0
--- NOTE | 2024-11-11 15:53 | MHC.PC.OV ---
Vital Signs 11/11/24 15:53 Height 5 ft 2 in Weight 153 lb BMI 28.0 BP 102/60 Blood Pressure Location Lt brachial Position Sitting Pulse 74 Pulse Source Pulse Oximeter Temp 97.1 F Temp Source Temporal Artery Scan Pulse Oximetry (%) 97 Oxygen Delivery Method Room Air Intake Visit Reasons: 1 month f/u Allergies No Known Allergies Allergy (Verified 11/02/24 06:21) Medication List - Last Reconciled 11/11/24 by Kenia Wilson PA-C acetylcysteine (NAC) 600 mg PO DAILY ascorbate calcium (vitamin C) 500 mg PO DAILY diphenhydramine HCl (Banophen) 50 mg PO DAILY enoxaparin 60 mg subcut DAILY ferrous sulfate (Feosol) 325 mg PO DAILY metoclopramide HCl 10 mg PO DAILY omega 8-oxx-she-fish oil 1,000 (120-180) mg (Fish Oil) 1 cap PO DAILY sumatriptan succinate (Imitrex) 50 mg PO Q2-4H PRN valacyclovir 500 mg PO DAILY PRN Tobacco use date assessed: 10/21/24 Dental Screening Dental Screen Date: 10/21/24 HPI 1 month f/u HPI Details 34-year-old female with past medical history of migraine, GERD, history of DVT last seen by PA 10/21/2024 coming in for follow up. In review of the notes, patient was found to have DVT 10/09/2024 advised at last visit to continue on Lovenox throughout the duration of and was referred to Hematology/Oncology as well as Cardiology for palpitations. Patient was also referred to vascular surgery in relation to recurrent DVT. Patient was seen by Hematology 11/01/2024 advised to continue on Lovenox and continue to follow with OBGYN. Patient was also recently diagnosed with influenza A 11/02/2024. Patient tells us today she is seeing her OB every two weeks through [facility] for high risk given recurrent DVT and PE. She was told by vascular she would not need to be seen in their office and has made an appointment with cardiology. She feels generally well on the lovenox. She continues to have palpitations and has been having EKGs through her OB and recent one in the ED and all have been normal. She has been seeing a Cost Accounting Clerk and was advised to start on a supplement NSK-SD which is meant to thin the blood. She would like to transition to this instead of Lovenox. She is also on several other supplements through their office. [facility] Medical History (Updated 11/11/24 @ 16:25 by Kenia Wilson PA-C) Palpitations Anemia Calf cramp Hearing difficulty of both ears Blood pressure elevated without history of HTN Mouth sore Gastroenteritis Tiredness Facial weakness Otitis media Migraine GERD (gastroesophageal reflux disease) Surgical History History of breast lump/mass excision Family History Father Cancer Hypertension FH: prostate cancer Mother Hypertension Substance abuse DVT (deep venous thrombosis) Paternal Grandmother Breast cancer Paternal Grandfather FH: testicular cancer Stomach cancer Maternal Grandmother DVT (deep venous thrombosis) Social History Housing: Apartment Alcohol intake: current Alcohol intake frequency: does not drink Patient Tobacco Use Status: Never used Tobacco Years Smoked: 2012 prn e-Cigarette/Vaping Use: Never Used Second Hand Smoke Exposure: No Advance Directives Date on File: 06/05/23 service: No Current occupational status: employed Current occupational exposures/hazards: No Cognitive needs: No Hearing needs: No Vision needs: No Questionnaire Thrive Questionnaire Date Thrive assessed: 10/21/24 MER[facility]-7 AMB Questionnaire MERCY-7 Date [facility]CY - 7 assessed: 10/21/24 Source: Developed by Drs. Bora Colmenares, Dahlia Tijerina, Yunior Porras and colleagues, with an educational sheila from [employer]. Review of Systems Const Denies body aches, Denies chills, Denies fever(s), Denies headache(s) and Denies poor appetite Eyes Reports no additional complaints ENT Denies dysphagia, Denies dizziness, Denies headache(s) and Denies odynophagia Card Denies chest pain, Denies syncope, Denies edema, Denies irregular heart rhythm, Denies lightheadedness and Denies dyspnea Resp Denies cough and Denies dyspnea GI Denies abdominal pain, Denies constipation, Denies dysphagia, Denies diarrhea, Denies nausea, Denies odynophagia and Denies vomiting Reports no additional complaints Musc Reports no additional complaints and Denies abnormal gait Skin/Breast Reports system reviewed and no additional complaints, except as documented Neuro Denies abnormal gait, Denies dizziness, Denies syncope and Denies headache(s) Psych Reports no additional complaints Physical exam (Primary Care) Vital Signs: Last Vital Signs Temp 97.1 F 11/11/24 15:53 Pulse 74 11/11/24 15:53 BP 102/60 11/11/24 15:53 Pulse Ox 97 11/11/24 15:53 Oxygen Delivery Method Room Air 11/11/24 15:53 BMI result Body Mass Index 28.0 Tobacco/Smoking Status: Tobacco use Status Tobacco use date assessed 10/21/24 11/11/24 15:55 Patient Tobacco Use Status Never used Tobacco 11/11/24 15:55 e-Cigarette/Vaping Use Never Used 11/11/24 15:55 Thrive Assessment: Date of Thrive Assessment Date Thrive assessed 10/21/24 11/11/24 15:55 Const General: cooperative, healthy appearing, comfortable and no acute distress Orientation/consciousness: patient oriented x3 HENMT Head: Yes normocephalic Ears: hearing grossly normal bilaterally General nose exam: Normal external nose present Eyes General: appearance normal, both eyes and all related structures Conjunctivae: conjunctivae normal Neck Neck: Yes full ROM and Yes no lymphadenopathy Resp Effort & Inspection: normal respiratory effort Auscultation: clear to auscultation bilaterally, no crackles, no rales, no rhonchi and no wheezes Cardio Rate: regular rate Rhythm: regular rhythm Skin General skin exam: no rashes or lesions noted Neuro General: patient oriented x3 Gait exam (Neuro): Normal gait present Extrem General: Yes normal to inspection, Yes full ROM and No edema Psych Affect: normal affect Attitude: cooperative Insight: Good insight present (Psych) Judgement: Good judgement present (Psych) Coding Level of Care Code Est Pt Level 4 (57516) Diagnoses Pulmonary embolism I26.99 Z34.90 Right leg DVT I82.401 Overweight (BMI 25.0-29.9) E66.3 GERD (gastroesophageal reflux disease) K21.9 Palpitations R00.2 Assessment & Plan Assessment & Plan (1) Pulmonary embolism: Code(s): I26.99 - Other pulmonary embolism without acute cor pulmonale Category: Medical Plan: Strongly advised patient to stay on the Lovenox as prescribed. She was seen by Hematology who recommended against adding medications to thin the blood and sticking with Lovenox as monotherapy. Patient tells us today this is not her understanding from Hematology however I did read the note back advised patient to discontinue the blood thinning medication given by the bead forming machine operator at the recommendation Hematology. (2) : Code(s): Z34.90 - Encounter for supervision of normal , unspecified, unspecified trimester Category: Medical Plan: Patient currently following with Ob through [facility] every 2 weeks for high-risk . Advised to follow the recommendations of the OB regarding supplements and safety for the fetus. (3) Right leg DVT: Comment: May 2023 stop 12/2023 Code(s): I82.401 - Acute embolism and thrombosis of unspecified deep veins of right lower extremity Category: Medical Plan: Strongly advised to stay on the Lovenox as recommended by the green hide inspector and OB. Avoid other medications that can potentially in the blood. I did order additional blood work that the bead forming machine operator requested for coagulopathy workup. Did advise the patient has some of these tests may not be covered by insurance as they are typical DVT workup. (4) Overweight (BMI 25.0-29.9): Code(s): E66.3 - Overweight Category: Medical Plan: Healthy diet and regular exercise is encouraged. (5) GERD (gastroesophageal reflux disease): Code(s): K21.9 - Gastro-esophageal reflux disease without esophagitis Category: Medical Plan: Avoid trigger foods such as citrus, tomato products, soda, caffeine, spicy foods and other foods that may be irritating to your stomach. Avoid laying flat 3-4 hours after eating and elevate the head of the bed 30 degrees to prevent acid from moving into the esophagus. (6) Palpitations: Code(s): R00.2 - Palpitations Category: Medical Plan: Patient continues to have intermittent palpitations all EKGs have been normal at this time. She states the palpitations are almost daily and are not associated with chest pains or shortness of breath. Ordered for Holter monitor and advised patient to follow up with Cardiology in the next coming months Plan This note was constructed using voice recognition software. While every effort has been made to ensure accuracy and mountain or glacier guide, still areas may have been included sometimes these areas may affect the content or meeting of the given symptoms. Total time spent caring for the patient today was 20 minutes. This includes time spent before the visit reviewing the chart, time spent during the visit, and time spent after the visit and documentation. Orders: Orders ECG 3 day holter monitor 11/11/24 R00.2 - Palpitations Erythrocyte Sedimentation Rate 11/11/24 R00.2 - Palpitations C Reactive Protein 11/11/24 R00.2 - Palpitations Estradiol Ultra Sensitive 11/11/24 I26.99 - Other pulmonary embolism without acute cor pulmonale Cortisol Random 11/11/24 R00.2 - Palpitations Mixing Study (PT/PTT) 11/11/24 I26.99 - Other pulmonary embolism without acute cor pulmonale Uric Acid 11/11/24 I26.99 - Other pulmonary embolism without acute cor pulmonale Progesterone 11/11/24 I26.99 - Other pulmonary embolism without acute cor pulmonale
== END 2024-11-11 16:46 | disposition home or self-care (01) ==
PROVIDERS: PCP Internal Medicine
DX: I26.99 Other pulmonary embolism without acute cor pulmonale (principal); Z34.90 Encounter for supervision of normal pregnancy, unspecified, unspecified trimester; I82.401 Acute embolism and thrombosis of unspecified deep veins of right lower extremity; E66.3 Overweight; K21.9 Gastro-esophageal reflux disease without esophagitis; R00.2 Palpitations

== ENCOUNTER → 2024-11-11 15:50 | Outpatient (BNVA) | payer OTHER, SELFPAY | PROVIDERS: PCP Internal Medicine | DX: O09.899 Supervision of other high risk pregnancies, unspecified trimester (principal); Z3A.00 Weeks of gestation of pregnancy not specified; I26.99 Other pulmonary embolism without acute cor pulmonale; I82.401 Acute embolism and thrombosis of unspecified deep veins of right lower extremity; E66.3 Overweight; K21.9 Gastro-esophageal reflux disease without esophagitis; Z79.899 Other long term (current) drug therapy | CPT/HCPCS: 99212 ==

== ENCOUNTER 2024-11-14 06:03 | Outpatient (REF) | payer OTHER, SELFPAY ==
--- OUTSIDE RECORDS SUMMARY | 2024-11-14 06:06 | XMS_ITS ---
Author Organization [facility] Address [address] [phone] Care Team Providers Care Beading Installer Name Role Phone LIS CARLOS Unavailable [phone] REASON FOR VISIT EC Medications Medication SIG (Take, Route, Fr equency, Duration) Notes Start Date End Date Status Levonorgestrel 1.5 MG as directed Orally Active Levonorgestrel 1.5 MG as directed Orally Unknown Levonorgestrel 1.5 MG as directed Orally Active Levonorgestrel 1.5 MG as directed Orally Unknown Eliquis Unknown Valtrex Unknown Social History Sex Assigned At : Social History Observation Description Sex Assigned At Female Encounters Encounter Location Date Provider Diagnosis [place] [address] [phone] 07/26/2024 LIS CARLOS Encounter for prescription of emergency contraception Z30.012 Assessments Encounter Date Diagnosis (ICD Code) Assessment Notes Treatment Notes Treatment Clinical Notes Section Notes 07/26/2024 Encounter for prescription of emergency contraception (ICD-10 - Z30.012) Client counseled that there is a chance of even after treatment. Client advised to refrain from unprotected intercourse following treatment, as Emergency Contraception will not prevent during this time, and risk may be increased due to a possible delay in ovulation. If no menses occur in 4 weeks after treatment, the client should return for a test. Dispensed condoms with emergency contraception and emergency contraception information sheet 07/26/2024 Other Discussed STI risks, screening, and safe sex Plan Of Treatment Medication Medication Name Sig Start Date Stop Date Notes Levonorgestrel 1.5 MG as directed Orally Treatment Notes Assessment Notes Encounter for prescription o f emergency contraception Client counseled that there is a chance of even after treatment. Client advised to refrain from unprotected intercourse following treatment, as Emergency Contraception will not prevent during this time, and risk may be increased due to a possible delay in ovulation. If no menses occur in 4 weeks after treatment, the client should return for a test. Dispensed condoms with emergency contraception and emergency contraception information sheet Other Discussed STI risks, screening, and safe sex Progress Notes * Sharifa GRANGER BDOB:1989 (34 yo F)Acc No.[id number]:07/26/2024 Progress Notes Patient:?Sharifa GRANGER B Provider:?LIS CARLOS :1990???Age:34 Y???Sex:Female D ate:07/26/2024 Address:[facility] [place], [facility], [id number] Subjective: * Chief Complaints: * ???EC * Medical History:? * Medications:?TakingLevonorge strel 1.5 MG Tablet as directed Orally Taking Levonorgestrel 1.5 MG Tablet as directed Orally UnknownValtrex Eliquis Levonorgestrel 1.5 MG Tablet as directed Orally Levonorgestrel 1.5 MG Tablet as directed Orally Unknown Valtrex Unknown Eliquis Unknown Levonorgestrel 1.5 MG Tablet as directed Orally Unknown Levonorgestrel 1.5 MG Tablet as directed Orally Objective: * Vitals:? Assessment: * Assessment: 1.?Encounter for prescriptio n of emergency contraception - Z30.012 (Primary)??? Plan: * Treatment: 2.?Others? Notes: Discussed STI risks, screening, and safe sex?? * Procedure Codes:?S4993 Emerg ency Contraception * Billing Information: * Visit Code:? * Procedure Codes:? S4993 Emergency Contraception. * Sign off status: Completed true * Provider:MISBAH CARLOS Date:?07/26/2024 Generated for Rachel frey/Johnathan/Mikki on:?11/14/2024 06:06 AM EST
--- OUTSIDE RECORDS SUMMARY | 2024-11-14 06:06 | XMS_ITS ---
Author Organization [facility] Address [address] [place] [phone] Care Team Providers Care Conveyor Belt Operator Name Role Phone LIS CARLOS Unavailable [phone] REASON FOR VISIT Infection Screening Social History Sex Assigned At : Social History Observation Description Sex Assigned At Female Encounters Encounter Location Date Provider Diagnosis [facility] [address] [facility] [place] [phone] LIS CARLOS Plan Of Treatment No Information Progress Notes * Sharifa GRANGER BDOB:1989 (34 yo F)Acc No.[id number]:09/20/2024 Progress Notes Patient:?BRENNA Sharifa B Provider:MISBAH CARLOS :1990???Age:34 Y???Sex:Female D ate:09/20/2024 Address:[address] [place], [id number] Subjective: * Chief Complaints: * ???1. Infection Screening. * Medical History:? Objective: * Vitals:? Assessment: Plan: * Treatment: * Billing Information: * Visit Code:? * Procedure Codes:? * Electronic signature of PETRA CARLOS CNM on 11/14/2024 at 06:06 AM EST Sign off status: Pending * Provider:MISBAH CARLOS Date:?09/20/2024 Generated for Rachel frey/Johnathan/eTransmitting on:?11/14/2024 06:06 AM EST
--- OUTSIDE RECORDS SUMMARY | 2024-11-14 06:07 | XMS_ITS ---
Author Organization [facility] Address [address] [place] [phone] Care Team Providers Care Supervisor Billposting Name Role Phone MANDY PAULA Unavailable [phone] REASON FOR VISIT Infection Screening Social History Sex Assigned At : Social History Observation Description Sex Assigned At Female Encounters Encounter Location Date Provider Diagnosis [facility] [address] [place] [phone] 09/17/2024 PAULA RAMIREZ Plan Of Treatment No Information Progress Notes * Sharifa GRANGER BDOB:1989 (34 yo F)Acc No.[id number]:09/17/2024 Progress Notes Patient:?Sharifa GRANGER Provider:?Paula Ramirez NP :1990???Age:34 Y???Sex:Female D ate:09/17/2024 Address:[address] [id number] Subjective: * Chief Complaints: * ???1. Infection Screening. * Medical History:? Objective: * Vitals:? Assessment: Plan: * Treatment: * Billing Information: * Visit Code:? * Procedure Codes:? * Electronic signature of OLIVER RAMIREZ NP on 11/14/2024 at 06:06 AM EST Sign off status: Pending * Provider:Ani Ramirez NP Date:? 024 Generated for Printi shante/Johnathan/eTransmitting on:?11/14/2024 06:06 AM EST
--- OUTSIDE RECORDS SUMMARY | 2024-11-14 06:07 | XMS_ITS | Patient Health Record ---
Author Organization [facility] Address [address] [phone] Care Team Providers Care Inspector Final Assembly Mechanical Name Role Phone LEXI GALVAN Unavailable [phone] LIS CARLOS Unavailable [phone] Allergies No Known Allergies Reason For Referral No Information Medications Medication SIG (Take, Route, Fr equency, Duration) Notes Start Date End Date Status Levonorgestrel 1.5 MG as directed Orally Active Levonorgestrel 1.5 MG as directed Orally Unknown Levonorgestrel 1.5 MG as directed Orally Active Valtrex Unknown Levonorgestrel 1.5 MG as directed Orally Unknown Eliquis Unknown Social History Sex Assigned At : Social History Observation Description Sex Assigned At Female Encounters Encounter Location Date Provider Diagnosis [address] [phone] 03/13/2024 LIS CARLOS Encounter for prescription of emergency contraception Z30.[address] [id number] 07/26/2024 LIS CARLOS Encounter for prescription of emergency contraception Z30.012 Assessments Encounter Date Diagnosis (ICD Code) Assessment Notes Treatment Notes Treatment Clinical Notes Section Notes 03/13/2024 Encounter for prescription of emergency contraception (ICD-10 [...] contraception and emergency contraception information sheet 07/26/2024 Encounter for prescription of emergency contraception [...] emergency contraception and emergency contraception information sheet 03/13/2024 Other Discussed STI risks, screening, and safe sex 07/26/2024 Other Discussed STI risks, screening, and safe sex Plan Of Treatment No Information Insurance Providers Payer Name Payer Address Payer Phone Subscriber Number Group Number Insured Name Patient Relationship to Insured Coverage Start Date Coverage End Date [place] ATT CLAIMS [address] [place] [address] [id number] Sharifa Granger Self - patient is the insured Medications Administered Medication Instructions Date of Administration Dosage Notes Depo 150mg 05/11/2022 Medical (General) History Medical History History ICD Code Migraines (no aura) DVT 05/2023 Surgical History Surgery Date(Month/Year) Hospitalization History Reason Date(Month/Year) child
[2024-11-14 08:18] LABS: C Reactive Protein 0.44 mg/dL (< or = 0.50); Uric Acid 3.4 mg/dL (2.4-5.7)
[2024-11-14 08:36] LABS: Erythrocyte Sedimentation Rate 30 MM/HR (0-20)
[2024-11-14 08:39] LABS: Cortisol Random 21.3 ug/dL
[2024-11-19 18:38] LABS: Mixing Study - PT 10.6 sec (9.0-11.5); PTT LA 31 sec (< OR = 40)
[2024-11-25 01:59] LABS: Estradiol Ultra Sensitive >4000 pg/mL
[2024-11-29 18:03] LABS: Progesterone 34.1 ng/mL
== END 2024-11-14 06:04 | disposition home or self-care (01) ==
LOC: HO.LAB 06:03
PROVIDERS: PCP Internal Medicine
DX: R00.2 Palpitations (principal); I26.99 Other pulmonary embolism without acute cor pulmonale
CPT/HCPCS: 36415; 82533; 82670; 84144; 84550; 85611; 85652; 85732; 86140

== ENCOUNTER 2024-12-28 04:57 | Emergency (ER) | payer OTHER, SELFPAY ==
[2024-12-28 05:03] VITALS: BP 107/36; PULSE 80; RESP 17; TEMP 37.1; O2SAT 98; BMI 28.7
[2024-12-28 05:36] LABS: IDNOW Serial# 58CA691E; Strep A Nucleic Acid Negative (Negative)
[2024-12-28 06:06] LABS: Influenza A PCR NEGATIVE (Negative); Influenza B PCR NEGATIVE (Negative); Resp Syncy Virus RNA Qual PCR NEGATIVE (Negative); SARS COV2 PCR INHOUSE NEGATIVE (Negative)
--- NOTE | 2024-12-28 08:31 | ED_ITS ---
HPI - URI/Sore Throat General Chief Complaint: Upper Respiratory Symptoms Stated Complaint: ear pain/sore throat/runny nose Time Seen by Provider: 12/28/24 07:52 Source: patient Mode of arrival: ambulatory Limitations: no limitations History of Present Illness ED Provider: Amelie Rene APRN HPI Narrative: This is a 34-year-old female who is 21 weeks who has a history of pulmonary embolisms and is currently taking Lovenox daily who presents the ER with complaints of bilateral ear pain, nasal congestion and sore throat for 2 days. 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 She denies chest pain, shortness of breath, leg swelling, leg pain, fevers, chills. No recent travel. She is followed by [facility] for her OB care. She has no -related complaints. No vaginal bleeding, no abdominal pain. Good movement. Related Data Home Medications ?Medication ?Instructions ?Recorded ?Confirmed valacyclovir 500 mg tablet 500 mg PO DAILY PRN Cold Sores 08/16/23 11/11/24 enoxaparin 80 mg/0.8 mL 60 mg subcut DAILY 10/21/24 11/11/24 subcutaneous syringe omega 9-rfk-fgi-fish oil 1,000 mg 1 cap PO DAILY 10/21/24 11/11/24 (120 mg-180 mg) capsule (Fish Oil) acetylcysteine 600 mg capsule (NAC) 600 mg PO DAILY 11/01/24 11/11/24 diphenhydramine HCl 50 mg capsule 50 mg PO DAILY 11/01/24 11/11/24 (Banophen) metoclopramide HCl 10 mg tablet 10 mg PO DAILY 11/01/24 11/11/24 Previous Rx's ?Medication ?Instructions ?Recorded sumatriptan succinate 50 mg tablet 50 mg PO Q2-4H PRN migraine 07/24/23 (Imitrex) headache #10 tabs ascorbate calcium (vitamin C) 500 500 mg PO DAILY #30 tabs 08/22/24 mg tablet ferrous sulfate 325 mg (65 mg 325 mg PO DAILY #90 tabs 08/22/24 iron) tablet (Feosol) amoxicillin 500 mg capsule 500 mg PO BID #20 caps 12/28/24 Allergies Allergy/AdvReac Type Severity Reaction Status Date / Time No Known Allergies Allergy Verified 12/28/24 05:04 Review of Systems Review of Systems: Yes all other systems are reviewed and are negative Constitutional: Constitutional: Reports no additional constitutional complaints, Denies body ache(s), Denies chills, Denies fever(s), Denies headache(s) and Denies weakness Eyes: Eyes: Reports no additional eye complaints and Denies change in vision ENT: Reports system reviewed and no additional complaints, except as documented, Denies dizziness, Reports otalgia, Denies headache(s), Reports nasal congestion, Denies nasal discharge, Denies neck pain and Reports sore throat Cardiovascular: Cardiovascular: Reports no additional cardiovascular complaints, Denies chest pain, Denies leg edema and Denies dyspnea Respiratory: Respiratory: Reports no additional respiratory complaints, Denies cough and Denies dyspnea Gastrointestinal: Gastrointestinal: Reports no additional gastrointestinal complaints, Denies abdominal pain, Denies diarrhea, Denies nausea and Denies vomiting Genitourinary: Genitourinary: Reports no additional female genitourinary complaints and Denies urinary incontinence Musculoskeletal: Musculoskeletal: Reports no additional musculoskeletal complaints, Denies back pain, Denies arthralgias, Denies joint swelling, Denies neck pain, Denies numbness and Denies tingling Integumentary/Breasts: Skin/Breast: Reports system reviewed and no additional complaints, except as docu and Denies rash Neurologic: Reports system reviewed and no additional complaints, except as documented, Denies Abnormal speech present, Denies dizziness, Denies headache(s), Denies numbness, Denies tingling and Denies weakness PMFSH Past Medical History Attestation statement: The following information was validated with the patient. Source: old records reviewed and nursing notes reviewed Medical History Palpitations Anemia Calf cramp Hearing difficulty of both ears Blood pressure elevated without history of HTN Mouth sore Gastroenteritis Tiredness Facial weakness Otitis media Migraine GERD (gastroesophageal reflux disease) Surgical History History of breast lump/mass excision Family History Family History Father Cancer Hypertension FH: prostate cancer Mother Hypertension Substance abuse DVT (deep venous thrombosis) Paternal Grandmother Breast cancer Paternal Grandfather FH: testicular cancer Stomach cancer Maternal Grandmother DVT (deep venous thrombosis) Social History Social History Housing: Apartment Alcohol intake: current Alcohol intake frequency: does not drink Patient Tobacco Use Status: Never used Tobacco Years Smoked: 2012 prn e-Cigarette/Vaping Use: Never Used Second Hand Smoke Exposure: No Advance Directives: Yes Advance Directives on File: Yes Advance Directives Date on File: 06/05/23 Do you have a plan to hurt others: No Plan service: No Current occupational status: employed Current occupational exposures/hazards: No Cognitive needs: No Hearing needs: No Vision needs: No Physical Exam Vital Signs: Vital Signs: Last Vital Signs Temp 98.7 F 12/28/24 05:03 Pulse 80 12/28/24 05:03 Resp 17 12/28/24 05:03 BP 107/36 L 12/28/24 05:03 Pulse Ox 98 12/28/24 05:03 O2 Del Method Room Air 12/28/24 05:03 BMI result Body Mass Index 28.7 Const: General: cooperative, healthy appearing, comfortable and no acute distress Orientation/consciousness: patient oriented x3 Limitations: no limitations HEENT: Head: Yes normal to inspection Ears: hearing grossly normal bilaterally, TM normal on the left, EAC's normal, mastoids normal, no periauricular adenopathy and TM abnormal (R TM) bulging and erythematous General nose exam: Normal external nose present Face and sinus: Yes normal facial exam Mouth: Normal oral and palatal mucosa present Throat: Yes posterior oropharynx normal, Yes tonsils normal and Yes uvula midline Eyes: General: appearance normal, both eyes and all related structures Pupils: Equal, round and reactive pupils present Neck: Neck: Yes normal visual inspection, Yes full ROM, Yes no lymphadenopathy and Yes no meningeal signs Chest: Chest palpation & inspection: normal inspection of the chest Resp: Effort & Inspection: normal respiratory effort Auscultation: clear to auscultation bilaterally Cardio: Rate: regular rate Rhythm: regular rhythm Peripheral pulses: Peripheral pulses 2+ throughout GI: Inspection: Yes normal to inspection Palpation (GI): Soft to palpation and nontender Auscultation: normal bowel sounds Back/Spine/Pelvis: Thoracic/Lumbar Spine: thoracic and lumbar spine normal to inspection Skin: General skin exam: no rashes or lesions noted Neuro: General: patient oriented x3, no meningeal signs, no focal motor deficits and normal sensation to monofilament Cranial nerves: Yes Equal, round and reactive pupils present Cognition (Neuro): normal cognition Speech: No Abnormal speech present Gait exam (Neuro): Normal gait present Motor exam (neuro): 5/5 motor strength present throughout Extrem: General: Yes normal to inspection, Yes no pedal edema and Yes no calf tenderness Medical Decision Making Medical Decision Making [facility] Narrative: This is a 34-year-old female who is 21 weeks who has a history of pulmonary embolisms and is currently taking Lovenox daily who presents the ER with complaints of bilateral ear pain, nasal congestion and sore throat for 2 days. 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 She denies chest pain, shortness of breath, leg swelling, leg pain, fevers, chills. No recent travel. She is followed by [facility] for her OB care. She has no -related complaints. No vaginal bleeding, no abdominal pain. Good movement. On exam patient has right otitis media Vitals are stable Exam is otherwise benign heart tones 160 Will discharge home with amoxicillin course with recommendations for supportive measures. Reviewed worrisome signs and symptoms of when to return to the emergency room. Comfortable plan for discharge home. Differential Diagnosis Differential Diagnoses: The differential diagnosis associated with the presentation includes Otitis media, strep pharyngitis, influenza, viral syndrome Admission/Observation Consideration of admission/observation: Escalation of care including admission/observation considered Lab Data [facility] Lab Attestation statement: I reviewed the patient's lab results. Labs: Lab Results 12/28/24 Range/Units 05:22 Influenza Type A (PCR) NEGATIVE (Negative) Influenza Type B (PCR) NEGATIVE (Negative) RSV RNA Qual (PCR) NEGATIVE (Negative) SARS-CoV-2 RNA (RT-PCR) NEGATIVE (Negative) S. pyogenes GrpA JONNA Negative (Negative) Prescription Management I considered prescription management with: Antibiotic Discharge Plan Discharge Clinical Impression: Otitis media, Upper respiratory infection Patient Disposition: Home, Self-Care Instructions: Ear Infection (ED), Viral Syndrome (ED) Additional Instructions: Take Tylenol for pain or fever Take the antibiotic as prescribed Return for any worsening symptoms Prescriptions: New amoxicillin 500 mg capsule 500 mg PO BID Qty: 20 0RF No Action sumatriptan succinate [Imitrex] 50 mg tablet 50 mg PO Q2-4H PRN (Reason: migraine headache) Qty: 10 1RF Rx Instructions: do not exceed 4 doses per 24 hrs acetylcysteine [NAC] 600 mg Capsule 600 mg PO DAILY diphenhydramine HCl [Banophen] 50 mg capsule 50 mg PO DAILY metoclopramide HCl 10 mg Tablet 10 mg PO DAILY valacyclovir 500 mg tablet 500 mg PO DAILY PRN (Reason: Cold Sores) ferrous sulfate [Feosol] 325 mg (65 mg iron) tablet 325 mg PO DAILY Qty: 90 2RF ascorbate calcium (vitamin C) 500 mg tablet 500 mg PO DAILY Qty: 30 4RF enoxaparin 80 mg/0.8 mL syringe 60 mg subcut DAILY omega 8-fhu-zsn-fish oil [Fish Oil] 1,000 (120-180) mg capsule 1 cap PO DAILY Referrals: Po,Isi Garcia MD [Primary Care Provider] - 1 week Print Language: Hungarian
== END 2024-12-28 08:55 | disposition home or self-care (01) ==
PROVIDERS: Emergency Provider Internal Medicine; PCP Internal Medicine
DX: O98.812 Other maternal infectious and parasitic diseases complicating pregnancy, second trimester (principal); R09.89 Other specified symptoms and signs involving the circulatory and respiratory systems; H92.03 Otalgia, bilateral; J06.9 Acute upper respiratory infection, unspecified; H66.93 Otitis media, unspecified, bilateral; Z79.899 Other long term (current) drug therapy; Z03.818 Encounter for observation for suspected exposure to other biological agents ruled out
CPT/HCPCS: 0241U; 87651; 99282; 99283

== ENCOUNTER → 2025-01-06 07:44 | Outpatient (REF) | payer OTHER, SELFPAY ==
--- OUTSIDE RECORDS SUMMARY | 2025-01-06 07:46 | XMS_ITS ---
Author Organization [facility] Address [address] [place] [phone] Care Team Providers Care Patient Placement Coordinator Name Role Phone LIS CARLOS Unavailable [phone] REASON FOR VISIT Infection Screening Social History Sex Assigned At : Social History Observation Description Sex Assigned At Female Encounters Encounter Location Date Provider Diagnosis [place] [address] [facility] [place] [phone] LIS CARLOS Plan Of Treatment No Information Progress Notes * Sharifa GRANGER BDOB:1989 (35 yo F)Acc No.[id number]:09/20/2024 Progress Notes Patient:?BRENNA Sharifa Marroquin Provider:MISBAH CARLOS :1990???Age:34 Y???Sex:Female D ate:09/20/2024 Address:[address] [place], [id number] Subjective: * Chief Complaints: * ???1. Infection Screening. * Medical History:? Objective: * Vitals:? Assessment: Plan: * Treatment: * Billing Information: * Visit Code:? * Procedure Codes:? * Electronic signature of PETRA CARLOS CNM on 01/06/2025 at 07:46 AM EDT Sign off status: Pending * Provider:MISBAH CARLOS Date:?09/20/2024 Generated for Rachle frey/Johnathan/eTransmitting on:?01/06/2025 07:46 AM EDT
--- OUTSIDE RECORDS SUMMARY | 2025-01-06 07:46 | XMS_ITS ---
Author Organization [facility] Address [address] [phone] Care Team Providers Care Renal Dialysis Rn Name Role Phone LIS CARLOS Unavailable [phone] REASON FOR VISIT EC Medications Medication SIG [...] Encounters Encounter Location Date Provider Diagnosis [place] [address] [phone] 07/26/2024 LIS CARLOS Encounter for prescription of [...] * Sharifa GRANGER BDOB:1989 (34 yo F)Acc No.[id number]:07/26/2024 Progress Notes Patient:?Sharifa GRANGER B Provider:?LIS CARLOS :1990???Age:34 Y???Sex:Female D ate:07/26/2024 Address:[facility] [place], [id number] Subjective: * Chief Complaints: * ???EC * [...] * Provider:MISBAH CARLOS Date:?07/26/2024 Generated for Rachel frey/Johnathan/eTblakesmandrea on:?01/06/2025 07:46 AM EDT
--- OUTSIDE RECORDS SUMMARY | 2025-01-06 07:47 | XMS_ITS ---
Author Organization [facility] Address [address] [place] [phone] Care Team Providers Care Cancer Program Consultant Name Role Phone MANDY PAULA Unavailable [phone] REASON FOR VISIT Infection Screening Social History Sex Assigned At : Social History Observation Description Sex Assigned At Female Encounters Encounter Location Date Provider Diagnosis [place] [address] [place] [phone] 09/17/2024 PAULA RAMIREZ Plan Of Treatment No Information Progress Notes * Sharifa GRANGER BDOB:1989 (35 yo F)Acc No.[id number]:09/17/2024 Progress Notes Patient:?Sharifa GRANGER Provider:?Paula Ramirez NP :1990???Age:34 Y???Sex:Female D ate:09/17/2024 Address:[address] [id number] Subjective: * Chief Complaints: * ???1. Infection Screening. * Medical History:? Objective: * Vitals:? Assessment: Plan: * Treatment: * Billing Information: * Visit Code:? * Procedure Codes:? * Electronic signature of OLIVER RAMIREZ NP on 01/06/2025 at 07:47 AM EDT Sign off status: Pending * Provider:Ani Ramirez NP Date:? 024 Generated for Printi shante/Johnathan/eTransmitting on:?01/06/2025 07:47 AM EDT
--- OUTSIDE RECORDS SUMMARY | 2025-01-06 07:47 | XMS_ITS | Patient Health Record ---
Author Organization [facility] Address [address] [phone] Care Team Providers Care Auto Mechanics Instructor Name Role Phone LEXI GALVAN Unavailable [phone] LIS CARLOS Unavailable [phone] Allergies No Known Allergies Reason For Referral [...] Female Encounters Encounter Location Date Provider Diagnosis [address] [phone] 03/13/2024 LIS CARLOS Encounter for prescription of emergency contraception Z30.[address] [phone] 07/26/2024 LIS CARLOS Encounter for prescription of [...] ATT CLAIMS [address] [place] [id number] Sharifa Granger Self - patient is the insured Medications Administered Medication Instructions Date of Administration Dosage Notes Depo 150mg 05/11/2022 Medical (General) History Medical History History ICD Code Migraines (no aura) DVT 05/2023 Surgical History Surgery Date(Month/Year) Hospitalization History Reason Date(Month/Year) child
== END ==
LOC: HO.CARD 07:44
PROVIDERS: PCP Internal Medicine
DX: R00.2 Palpitations (principal)
CPT/HCPCS: 93225

== ENCOUNTER 2025-01-21 14:55 | Outpatient (AMB) | payer OTHER, SELFPAY ==
--- NOTE | 2025-01-21 15:35 | A.OFFPC_ITS ---
Vital Signs 01/21/25 15:36 Height 5 ft 3 in Weight 164 lb 6 oz BMI 29.1 BP 110/60 Blood Pressure Location Lt brachial Position Sitting Pulse 75 Pulse Source Pulse Oximeter Temp 97.7 F Temp Source Temporal Artery Scan Pulse Oximetry (%) 97 Oxygen Delivery Method Room Air Intake Visit Reasons: clearance for work/ heart monitor results Intake Note: Patient is here to follow up on Clearance for work and Holter monitor results. Research Clerk Required: No Date Night Caregiver: Not Required per policy Accompanied by: Self / Same As Patient Allergies No Known Allergies Allergy (Verified 01/21/25 15:57) Medication List - Last Reconciled 01/21/25 by Kenia Wilson PA-C acetylcysteine (NAC) 600 mg PO DAILY ascorbate calcium (vitamin C) 500 mg PO DAILY diphenhydramine HCl (Banophen) 50 mg PO DAILY enoxaparin (Lovenox) 100 mg subcut DAILY ferrous sulfate (Feosol) 325 mg PO DAILY metoclopramide HCl 10 mg PO DAILY omega 3-kik-cmb-fish oil 1,000 (120-180) mg (Fish Oil) 1 cap PO DAILY sumatriptan succinate (Imitrex) 50 mg PO Q2-4H PRN valacyclovir 500 mg PO DAILY PRN Tobacco use date assessed: 01/21/25 Dental Screening Dental Screen Date: 10/21/24 HPI clearance for work/ heart monitor results HPI Details 35-year-old female with past medical his tory of migraine, code, history of DVT last seen 11/2024 coming in for follow up. In review of the notes, patient was seen by Hematology Oncology 01/06/2025 currently prescribed Lovenox 70 mg subcutaneously b.i.d. reported noncompliance Lovenox was increased to once daily dosing and follow up in 2 months. Presenting with follow-up and management of anticoagulation therapy during . She is 24 weeks and has previously experienced blood clots during , currently managed with Lovenox. Recently, an ultrasound discovered an echogenic intracardiac focus on the fetus?s heart, which is being monitored. The patient has been on work restrictions but feels ready to return to work without these limitations. She reports palpitations, previously evaluated by Holter monitoring, showing no arrhythmic complications. [facility] Medical History Palpitations Anemia Calf cramp Hearing difficulty of both ears Blood pressure elevated without history of HTN Mouth sore Gastroenteritis Tiredness Facial weakness Otitis media Migraine GERD (gastroesophageal reflux disease) Surgical History History of breast lump/mass excision Family History Father Cancer Hypertension FH: prostate cancer Mother Hypertension Substance abuse DVT (deep venous thrombosis) Paternal Grandmother Breast cancer Paternal Grandfather FH: testicular cancer Stomach cancer Maternal Grandmother DVT (deep venous thrombosis) Social History Housing: Apartment Alcohol intake: current Alcohol intake frequency: does not drink Patient Tobacco Use Status: Never used Tobacco Years Smoked: 2012 prn e-Cigarette/Vaping Use: Never Used Second Hand Smoke Exposure: No Advance Directives Date on File: 06/05/23 service: No Current occupational status: employed Current occupational exposures/hazards: No Cognitive needs: No Hearing needs: No Vision needs: No Questionnaire Thrive Questionnaire Date Thrive assessed: 10/21/24 MERCY-7 AMB Questionnaire MERCY-7 Date MERCY - 7 assessed: 10/21/24 Source: Developed by Drs. Bora Colmenares, Dahlia Tijerina, Yunior Porras and colleagues, with an educational sheila from [employer]. Review of Systems Const Denies body aches, Denies chills, Denies fever(s) and Denies poor appetite Eyes Reports no additional complaints ENT Denies dizziness Card Denies chest pain, Denies lightheadedness, Reports palpitations and Denies dyspnea Resp Denies cough and Denies dyspnea Reports no additional complaints Musc Reports no additional complaints and Denies abnormal gait Skin/Breast Reports system reviewed and no additional complaints, except as documented Neuro Denies abnormal gait and Denies dizziness Psych Reports no additional complaints Endo Reports palpitations Physical exam (Primary Care) Tobacco/Smoking Status: Tobacco use Status Tobacco use date assessed 10/21/24 11/11/24 15:55 Patient Tobacco Use Status Never used Tobacco 11/11/24 15:55 e-Cigarette/Vaping Use Never Used 11/11/24 15:55 Thrive Assessment: Date of Thrive Assessment Date Thrive assessed 10/21/24 11/11/24 15:55 Const General: cooperative, healthy appearing, comfortable and no acute distress Orientation/consciousness: patient oriented x3 HENMT Head: Yes normocephalic Ears: hearing grossly normal bilaterally General nose exam: Normal external nose present Eyes General: appearance normal, both eyes and all related structures Conjunctivae: conjunctivae normal Neck Neck: Yes full ROM and Yes no lymphadenopathy Resp Effort & Inspection: normal respiratory effort Auscultation: clear to auscultation bilaterally, no crackles, no rales, no rhonchi and no wheezes Cardio Rate: regular rate Rhythm: regular rhythm Skin General skin exam: no rashes or lesions noted Neuro General: patient oriented x3 Gait exam (Neuro): Normal gait present Extrem General: Yes normal to inspection, Yes full ROM and No edema Psych Affect: normal affect Attitude: cooperative Insight: Good insight present (Psych) Judgement: Good judgement present (Psych) Coding Level of Care Code Est Pt Level 3 (43970) Diagnoses Palpitations R00.2 Z34.90 Right leg DVT I82.401 Assessment & Plan Assessment & Plan (1) Palpitations: Code(s): R00.2 - Palpitations Category: Medical Plan: Palpitations have been benign thus far and all testing has been negative. She does have an appointment upcoming with cardiology next week for further workup. (2) : Code(s): Z34.90 - Encounter for supervision of normal , unspecified, unspecified trimester Category: Medical Plan: Continue to follow with [facility] (3) Right leg DVT: Comment: May 2023 stop 12/2023 Code(s): I82.401 - Acute embolism and thrombosis of unspecified deep veins of right lower extremity Category: Medical Plan: Advised to continue to follow up with hematology and continue on Lovenox as advised by heme. She is cleared to head back to work advised not to lift heavy objects without supervision and ask for assistance as needed. Plan The patient will maintain her routine schedule while monitoring the echogenic intracardiac focus as it appears benign for now. Her anticoagulation therapy will adjust to a once-daily regimen upon completing her current doses. She is cleared to return to work with encouragement to avoid lifting heavy weights to prevent undue strain. Palpitations have been non- concerning so far, thus will continue under observation. Regular follow-ups with her healthcare team will continue to ensure her and the baby's health. Patient was informed and verbally consented to the use of an ambient scribe for clinic note documentation during this visit.
[2025-01-21 15:36] VITALS: BP 110/60; PULSE 75; TEMP 36.5; O2SAT 97; BMI 29.1
--- OUTSIDE RECORDS SUMMARY | 2025-01-21 17:50 | XMS_ITS ---
[facility] Organization [facility] Address [address] [id number] Care Team Providers Care Lime Sludge Kiln Operator Name Role Phone LIS CARLOS Unavailable [phone] REASON FOR VISIT EC Medications Medication SIG [...] Encounters Encounter Location Date Provider Diagnosis [place] [address] [phone] 07/26/2024 LIS CARLOS Encounter for prescription of [...] * Sharifa GRANGER BDOB:1989 (34 yo F)Acc No.[id number]:07/26/2024 Progress Notes Patient:?Sharifa GRANGER B Provider:?LIS CARLOS :1990???Age:34 Y???Sex:Female D ate:07/26/2024 Address:[facility] [place], [facility], [id number] Subjective: * Chief Complaints: * ???EC * [...] Provider:MISBAH CARLOS Date:?07/26/2024 Generated for Rachel frey/Johnathan/eTblakesmandrea on:?01/21/2025 12:13 PM EDT
--- OUTSIDE RECORDS SUMMARY | 2025-01-21 17:50 | XMS_ITS ---
Author Organization [facility] Address [address] [place] [phone] Care Team Providers Care Inventory Management Specialist Name Role Phone LIS CARLOS Unavailable [phone] REASON FOR VISIT Infection Screening Social History Sex Assigned At : Social History Observation Description Sex Assigned At Female Encounters Encounter Location Date Provider Diagnosis [place] [address] [facility] [place] [phone] LIS CARLOS Plan Of Treatment No Information Progress Notes * Sharifa GRANGER BDOB:1989 (35 yo F)Acc No.[id number]:09/20/2024 Progress Notes Patient:?BRENNA Sharifa Marroquin Provider:MISBAH CARLOS :1990???Age:34 Y???Sex:Female D ate:09/20/2024 Address:[address] [place], [id number] Subjective: * Chief Complaints: * ???1. Infection Screening. * Medical History:? Objective: * Vitals:? Assessment: Plan: * Treatment: * Billing Information: * Visit Code:? * Procedure Codes:? * Electronic signature of PETRA CARLOS CNM on 01/21/2025 at 12:13 PM EDT Sign off status: Pending * Provider:MISBAH CARLOS Date:?09/20/2024 Generated for Ayadi shante/Faking/eTransmitting on:?01/21/2025 12:13 PM EDT
--- OUTSIDE RECORDS SUMMARY | 2025-01-21 17:50 | XMS_ITS ---
Author Organization [facility] Address [address] [place] [phone] Care Team Providers Care Physician Practice Coordinator Name Role Phone MANDY PAULA Unavailable [phone] REASON FOR VISIT Infection Screening Social History Sex Assigned At : Social History Observation Description Sex Assigned At Female Encounters Encounter Location Date Provider Diagnosis [place] [address] [place] [phone] 09/17/2024 PAULA RAMIREZ Plan Of Treatment No Information Progress Notes * Sharifa GRANGER BDOB:1989 (35 yo F)Acc No.[id number]:09/17/2024 Progress Notes Patient:?Sharifa GRANGER Provider:?Paula Ramirez NP :1990???Age:34 Y???Sex:Female D ate:09/17/2024 Address:[address] [id number] Subjective: * Chief Complaints: * ???1. Infection Screening. * Medical History:? Objective: * Vitals:? Assessment: Plan: * Treatment: * Billing Information: * Visit Code:? * Procedure Codes:? * Electronic signature of OLIVER RAMIREZ NP on 01/21/2025 at 12:13 PM EDT Sign off status: Pending * Provider:?Paula Ramirez NP Date:? 024 Generated for Printi ng/Johnathan/eTransmitting on:?01/21/2025 12:13 PM EDT
--- OUTSIDE RECORDS SUMMARY | 2025-01-21 17:50 | XMS_ITS | Patient Health Record ---
Author Organization [facility] Address [address] [phone] Care Team Providers Care Consulting Networking Engineer Name Role Phone LEXI GALVAN Unavailable [phone] LIS CARLOS Unavailable [phone] Allergies No Known Allergies Reason For Referral [...] Female Encounters Encounter Location Date Provider Diagnosis [address] [phone] 03/13/2024 LIS CARLOS Encounter for prescription of emergency contraception Z30.[address] [id number] 07/26/2024 LIS CARLOS Encounter for prescription of [...] ATT CLAIMS [address] [place] [phone] Sharifa Granger Self - patient is the insured Medications Administered Medication Instructions Date of Administration Dosage Notes Depo 150mg 05/11/2022 Medical (General) History Medical History History ICD Code Migraines (no aura) DVT 05/2023 Surgical History Surgery Date(Month/Year) Hospitalization History Reason Date(Month/Year) child
== END 2025-01-21 16:14 | disposition home or self-care (01) ==
LOC: HO.HMCH 14:56
PROVIDERS: PCP Internal Medicine
DX: R00.2 Palpitations (principal); Z34.90 Encounter for supervision of normal pregnancy, unspecified, unspecified trimester; I82.401 Acute embolism and thrombosis of unspecified deep veins of right lower extremity

== ENCOUNTER → 2025-01-21 14:55 | Outpatient (BNVA) | payer OTHER, SELFPAY | PROVIDERS: PCP Internal Medicine | DX: O22.32 Deep phlebothrombosis in pregnancy, second trimester (principal); I82.401 Acute embolism and thrombosis of unspecified deep veins of right lower extremity; O26.892 Other specified pregnancy related conditions, second trimester; R00.2 Palpitations; Z3A.24 24 weeks gestation of pregnancy; Z79.01 Long term (current) use of anticoagulants | CPT/HCPCS: 99212 ==

== ENCOUNTER 2025-02-16 05:48 | Emergency (ER) | payer OTHER, SELFPAY ==
--- NOTE | ~2025-02-16 | US_ITS ---
CLINICAL HISTORY: pain, swelling, hx DVTs PEs Venous duplex ultrasound right lower extremity Comparison: 09/27/2023 Findings: The visualized deep veins are fully compressible with normal Doppler color flow and spectral tracings. No popliteal cyst. IMPRESSION: 1. Negative for right lower extremity deep vein thrombosis. This document has been electronically signed by: Mike Nelson MD on 02/16/2025 10:51:31
[2025-02-16 05:51] VITALS: BP 115/36; PULSE 72; RESP 18; TEMP 36.6; O2SAT 99; BMI 28.7
--- NOTE | 2025-02-16 06:08 | ED_ITS ---
HPI - General Adult General Chief complaint: General Medical Stated complaint: right leg swelling Time Seen by Provider: 02/16/25 06:00 Source: patient Mode of arrival: ambulatory Limitations: no limitations History of Present Illness ED Provider: Dr. Elissa Dang HPI narrative: Patient comes to the emergency room complaining of right lower extremity pain and swelling. Patient states it has been approximately 24 hours. Patient has history of DVTs and submassive pulmonary embolisms. Patient is currently taking Lovenox and is currently a G3, at approximately 8 weeks of gestational age. Patient states that she is compliant with her Lovenox. Patient denies any chest pain or shortness of breath. Denies vaginal bleeding or abdominal cramping. Related Data Home Medications ?Medication ?Instructions ?Recorded ?Confirmed valacyclovir 500 mg tablet 500 mg PO DAILY PRN Cold Sores 08/16/23 01/21/25 omega 2-kbu-lve-fish oil 1,000 mg 1 cap PO DAILY 10/21/24 01/21/25 (120 mg-180 mg) capsule (Fish Oil) acetylcysteine 600 mg capsule (NAC) 600 mg PO DAILY 11/01/24 01/21/25 diphenhydramine HCl 50 mg capsule 50 mg PO DAILY 11/01/24 01/21/25 (Banophen) metoclopramide HCl 10 mg tablet 10 mg PO DAILY 11/01/24 01/21/25 Previous Rx's ?Medication ?Instructions ?Recorded sumatriptan succinate 50 mg tablet 50 mg PO Q2-4H PRN migraine 07/24/23 (Imitrex) headache #10 tabs ascorbate calcium (vitamin C) 500 500 mg PO DAILY #30 tabs 08/22/24 mg tablet ferrous sulfate 325 mg (65 mg 325 mg PO DAILY #90 tabs 08/22/24 iron) tablet (Feosol) enoxaparin 100 mg/mL subcutaneous 100 mg subcut DAILY #30 mL 01/06/25 syringe (Lovenox) acetaminophen 500 mg tablet 1,000 mg (2 x 500 mg) PO Q6H PRN 02/16/25 (Tylenol Extra Strength) pain (scale score 4-6) #30 tabs Allergies Allergy/AdvReac Type Severity Reaction Status Date / Time No Known Allergies Allergy Verified 02/16/25 05:53 Review of Systems Review of Systems: Constitutional : No Weight loss, No Fever, No Chills, No Night Sweats, No Fatigue, No Malaise ENT/Mouth : No Hearing loss, No Ear Pain, No Nasal Congestion, No Sinus Pain, No Hoarseness, No sore throat, No Rhinorrhea, No Swallowing Difficulty Eyes: No Eye Pain, No Swelling, No Redness, No Foreign Body, No Discharge, No Vision Changes Cardiovascular : No Chest Pain, No SOB, No Dyspnea on Exertion, No Orthopnea, No Edema, No Palpitations Respiratory : No Cough, No Sputum, No Wheezing, No Smoke Exposure, No Dyspnea Gastrointestinal : No Nausea, No Vomiting, No Diarrhea, No Constipation, No abdominal Pain, No Hematochezia, No Melena Genitourinary : no irregular bleeding, No Dysuria, No Urinary Frequency, No Hematuria, No Urinary Incontinence, No Urgency, No Flank Pain, No Urinary Flow Changes, No Hesitancy Musculoskeletal : Complaining of right lower extremity pain and swelling. No Myalgias, No Joint Swelling Skin : No Skin Lesions, No rash Neuro : No Weakness, No Numbness, No Paresthesias, No Loss of Consciousness, No Dizziness, No Headache Psych : No Anxiety/Panic, No Depression, No SI/HI/AH/VH, No Social Issues, Heme/Lymph: No Bruising, No Bleeding,No Lymphadenopathy Endocrine : No Polyuria, No Polydipsia, No Temperature Intolerance [facility] Past Medical History Medical History Palpitations Anemia Calf cramp Hearing difficulty of both ears Blood pressure elevated without history of HTN Mouth sore Gastroenteritis Tiredness Facial weakness Otitis media Migraine GERD (gastroesophageal reflux disease) Surgical History History of breast lump/mass excision Family History Family History Father Cancer Hypertension FH: prostate cancer Mother Hypertension Substance abuse DVT (deep venous thrombosis) Paternal Grandmother Breast cancer Paternal Grandfather FH: testicular cancer Stomach cancer Maternal Grandmother DVT (deep venous thrombosis) Social History Social History Housing: Apartment Alcohol intake: current Alcohol intake frequency: does not drink Patient Tobacco Use Status: Never used Tobacco Years Smoked: 2012 prn Smoked in Last 30 Days: No e-Cigarette/Vaping Use: Never Used Second Hand Smoke Exposure: No Use of substances other than those prescribed or required for medical reasons: No Advance Directives: Yes Advance Directives on File: Yes Advance Directives Date on File: 06/05/23 Patient : Yes service: No Current occupational status: employed Current occupational exposures/hazards: No Cognitive needs: No Hearing needs: No Vision needs: No Physical Exam ED Vital Signs: Vital Signs - 24 hr 02/16/25 05:51 02/16/25 06:18 02/16/25 10:11 Temperature 97.8 F 97.6 F 97.6 F Pulse Rate 72 73 73 Respiratory Rate 18 18 18 Blood Pressure 115/36 L 98/54 L 98/54 L Pulse Oximetry 99 100 100 Oxygen Delivery Method Room Air Room Air Room Air BMI result Body Mass Index 28.7 Const Other: Appearance: Alert. Oriented X3. No acute distress. Eyes: Pupils equal, round and reactive to light. ENT: Pharynx normal. Neck: Normal inspection. Neck supple. No lymph nodes noted. No crepitus CVS: Normal heart rate and rhythm. Pulses normal. Normal S1 and S2 Respiratory: No respiratory distress. Breath sounds normal. No Wheezing. No rales Abdomen: Soft and nontender. No rigidity. No distention. gravid uterus. Bedside ultrasound shows a heart rate between 120 and 130, good movement Skin: Skin warm and dry. Normal skin color. Normal skin turgor. Extremities: trace nonpitting edema bilaterally, mild pain to palpation on the right calf, No Lacerations. No Rash Neuro: Oriented X 3. No motor deficit. No sensory deficit. Moving all extremi ties. No slurred speech. CN 2 through 12 grossly intact Psych: calm, cooperative, normal affect Course Course Course Narrative: ultrasound of the lower extremity pending. Patient has history of DVTs and pulmonary embolisms, currently on Lovenox sign out given to my colleague Dr. Silva Reevaluation(s) Reevaluation #1: Patient was signed out to me at 07:[address] aDng, I reviewed the ultrasound and also I reviewed the report of the take no evidence of DVT Dale reading by the radiologist still pending as now 10:00 AM I think the patient can be discharged home at this time we will call the patient if any discrepancy with the ultrasound reading Ultrasound officially read as negative for DVT Time: 10:02 Medications Administered Discontinued Medications Generic Name Dose Route Start Last Admin Trade Name Abby PRN Reason Stop Dose Admin Acetaminophen 975 mg 02/16/25 09:58 02/16/25 10:11 Acetaminophen 325 Mg Tablet PO 02/16/25 09:59 Not Given ONCE ONE Discharge Plan Discharge Clinical Impression: Leg pain Qualifiers: Laterality: right Qualified Code(s): M79.604 - Pain in right leg Patient Disposition: Home, Self-Care Instructions: Leg Pain (ED) Additional Instructions: Follow-up with your primary care physician you could take acetaminophen 500 mg 2 tablets every 6 hour for pain we sent a prescription to the pharmacy Prescriptions: New acetaminophen [Tylenol Extra Strength] 500 mg tablet 1,000 mg PO Q6H PRN (Reason: pain (scale score 4-6)) Qty: 30 0RF No Action sumatriptan succinate [Imitrex] 50 mg tablet 50 mg PO Q2-4H PRN (Reason: migraine headache) Qty: 10 1RF Rx Instructions: do not exceed 4 doses per 24 hrs acetylcysteine [NAC] 600 mg Capsule 600 mg PO DAILY diphenhydramine HCl [Banophen] 50 mg capsule 50 mg PO DAILY metoclopramide HCl 10 mg Tablet 10 mg PO DAILY enoxaparin [Lovenox] 100 mg/mL Syringe 100 mg SUBCUT DAILY Qty: 30 1RF valacyclovir 500 mg tablet 500 mg PO DAILY PRN (Reason: Cold Sores) ferrous sulfate [Feosol] 325 mg (65 mg iron) tablet 325 mg PO DAILY Qty: 90 2RF ascorbate calcium (vitamin C) 500 mg tablet 500 mg PO DAILY Qty: 30 4RF omega 4-roa-svk-fish oil [Fish Oil] 1,000 (120-180) mg capsule 1 cap PO DAILY Interventions: ED Discharge Assessment Last Done: 02/16/25 10:11 Discharge Date/Time: 02/16/25 10:12 Print Language: [place]
[2025-02-16 06:18] VITALS: BP 98/54; PULSE 73; RESP 18; TEMP 36.4; O2SAT 100
--- OUTSIDE RECORDS SUMMARY | 2025-02-16 06:52 | XMS_ITS | Patient Health Record ---
Author Organization [facility] Address [address] [phone] Care Team Providers Care Communications Attendant Name Role Phone LEXI GALVAN Unavailable [phone] LIS CARLOS Unavailable [phone] Allergies No Known Allergies Reason For Referral [...] Female Encounters Encounter Location Date Provider Diagnosis [address] [id number] 03/13/2024 LIS CARLOS Encounter for prescription of emergency contraception Z30.[address] [id number] 07/26/2024 LIS CARLOS Encounter for prescription of [...] ATT CLAIMS [address] [place] [id number] Sharifa Granger Self - patient is the insured Medications Administered Medication Instructions Date of Administration Dosage Notes Depo 150mg 05/11/2022 Medical (General) History Medical History History ICD Code Migraines (no aura) DVT 05/2023 Surgical History Surgery Date(Month/Year) Hospitalization History Reason Date(Month/Year) child
--- OUTSIDE RECORDS SUMMARY | 2025-02-16 06:52 | XMS_ITS ---
Author Organization [facility] Address [address] [place] [phone] Care Team Providers Care Lpn Medical Assistant Name Role Phone MANDY PAULA Unavailable [phone] REASON FOR VISIT Infection Screening Social History Sex Assigned At : Social History Observation Description Sex Assigned At Female Encounters Encounter Location Date Provider Diagnosis [place] [address] [place] [phone] 09/17/2024 PAULA RAMIREZ Plan Of Treatment No Information Progress Notes * Sharifa GRANGER BDOB:1989 (35 yo F)Acc No.[id number]:09/17/2024 Progress Notes Patient:?Sharifa GRANGER Provider:?Paula Ramirez NP :1990???Age:34 Y???Sex:Female D ate:09/17/2024 Address:[address] [id number] Subjective: * Chief Complaints: * ???1. Infection Screening. * Medical History:? Objective: * Vitals:? Assessment: Plan: * Treatment: * Billing Information: * Visit Code:? * Procedure Codes:? * Electronic signature of OLIVER RAMIREZ NP on 02/16/2025 at 06:52 AM EDT Sign off status: Pending * Provider:Ani Ramirez NP Date:? 024 Generated for Printi ng/Johnathan/eTransmitting on:?02/16/2025 06:52 AM EDT
[2025-02-16 10:11] VITALS: BP 98/54; PULSE 73; RESP 18; TEMP 36.4; O2SAT 100
== END 2025-02-16 10:12 | disposition home or self-care (01) ==
PROVIDERS: Emergency Provider Emergency Medicine; PCP Internal Medicine
DX: M79.604 Pain in right leg (principal)
CPT/HCPCS: 93971; 99284

== ENCOUNTER → 2025-02-16 06:01 | Outpatient (BNV) | payer OTHER, SELFPAY | PROVIDERS: Emergency Provider Emergency Medicine; PCP Internal Medicine; Visit Provider Radiology Vascular & Interventional Radiology | DX: M79.661 Pain in right lower leg (principal); R22.41 Localized swelling, mass and lump, right lower limb | CPT/HCPCS: 93971 ==

== ENCOUNTER 2025-08-22 16:19 | Outpatient (AMB) | payer OTHER, SELFPAY ==
--- OUTSIDE RECORDS SUMMARY | 2024-09-17 11:45 | XMS_ITS ---
Author Organization [facility] Address [address] [place] [address] Care Team Providers Care Railway Switchman Name Role Phone MANDY LEXI Unavailable [phone] REASON FOR VISIT Infection Screening Social History Sex Assigned At : Social History Observation Description Sex Assigned At Female Encounters Encounter Location Date Provider Diagnosis [facility] [address] [place] [address] [place] [id number] 09/17/2024 LEXI RAMIREZ Plan Of Treatment No Information Progress Notes * Sharifa GRANGER BDOB:1989 (35 yo F)Acc No.[id number]:09/17/2024 Progress Notes Patient: Lorene garciajuana Sharifa Cara Provider: Esperanza Ramirez NP :1990 A ge:34 Y S ex:Female Date:09/17/2024 Address:[address] [id number] Subjective: * Chief Complaints: * I nfection Screening * Electronic signature of OLIVER RAMIREZ NP on 08/22/2025 at 04:20 PM EST Sign off status: Pending * Provider: Esperanza Ramirez NP Date: 11/18/2023 Generated for Printi ng/Facharissag/eTransmitting on: 10/22/2024 04:20 PM EST
--- OUTSIDE RECORDS SUMMARY | 2024-09-20 10:45 | XMS_ITS ---
Author Organization [facility] Address [address] [place] [address] Care Team Providers Care Field Administrator Name Role Phone LIS CARLOS Unavailable [phone] REASON FOR VISIT Infection Screening Social History Sex Assigned At : Social History Observation Description Sex Assigned At Female Encounters Encounter Location Date Provider Diagnosis [facility] [address] [place] [phone] LIS CARLOS Plan Of Treatment No Information Progress Notes * Sharifa GRANGER BDOB:1989 (35 yo F)Acc No.[id number]:09/20/2024 Progress Notes Patient: Lorene Sharifa bai Provider: Brad CARLOS :1990 A ge:34 Y S ex:Female Date:09/20/2024 Address:[address] [id number] Subjective: * Chief Complaints: * I nfection Screening * Electronic signature of PETRA CARLOS CNM on 08/22/2025 at 04:21 PM EST Sign off status: Pending * Provider: Brad CARLOS Date: 11/21/2023 Generated for Rachel frey/Johnathan/eTransmitting on: 10/22/2024 04:21 PM EST
[2025-08-22 16:21] VITALS: BP 90/60; PULSE 92; TEMP 36.7; O2SAT 98; BMI 30.9
--- NOTE | 2025-08-22 16:21 | MHC.PC.OV ---
Vital Signs 08/22/25 16:21 Height 5 ft 3 in Weight 174 lb 4 oz BMI 30.9 BP 90/60 Blood Pressure Location Lt brachial Position Standing Pulse 92 Pulse Source Pulse Oximeter Temp 98.1 F Temp Source Temporal Artery Scan Pulse Oximetry (%) 98 Oxygen Delivery Method Room Air Intake Visit Reasons: b/l leg swelling and pain ? DVT Intake Note: Patient is here to follow up on Clearance for work and Holter monitor results. Beater And Pulper Feeder Required: No Training And Development Coordinator: Not Required per policy Accompanied by: Self / Same As Patient Allergies No Known Allergies Allergy (Verified 02/16/25 05:53) Tobacco use date assessed: 01/21/25 Dental Screening Dental Screen Date: 10/21/24 Did you have a dental visit in the last 12 months?: Yes Did you have a dental problem in the last 6 months where you did not have access to dental care?: No Was dental information given to patient?: Patient has dentist HPI HPI Comments History of Present Illness Details History of Present Illness The patient is a 35 year old individual with a history of obesity, GERD, and migraines, presenting for follow-up regarding a history of thromboembolic disease and new onset of bilateral leg pain. The patient traveled to [place] on August 08 and, a couple of days later, developed headaches and pain in both legs, described as the same feeling as previous thrombotic events, with associated throbbing at night. The patient denies any leg swelling. The patient's history is significant for a right leg DVT in May 2023. The patient also experienced a submassive pulmonary embolism and right lower extremity DVT in October of the current year, which occurred during the first trimester of the patient's third . Workup at that time included a CT angiogram of the chest and an echocardiogram that showed normal left ventricular function. The patient successfully delivered a baby girl in May and was recommended to have a 6-week course of anticoagulation with Lovenox injections. However, the patient did not complete the full course and stopped the medication after a few days. Due to the recent onset of leg pain, the patient self-administered remaining Lovenox 70 mg injections for about a week. There is a family history of a blood clot in the patient's grandmother, but genetic testing for thrombophilia was negative. The patient was last seen in December and had noted a 10-pound weight gain at that time. Health Maintenance - Discussed need for anticoagulation to prevent recurrent thromboembolism, noting that the patient previously did not complete the recommended 6-week course of Lovenox. Social History - The patient recently traveled to [place]. Results - Lab and Test Results Reviewed: - CT angiogram of the chest (prior): Confirmed pulmonary embolism. - Echocardiogram (prior): Normal left ventricular function. - Genetic testing for thrombophilia (prior): Negative. [facility] Medical History Palpitations Anemia Calf cramp Hearing difficulty of both ears Blood pressure elevated without history of HTN Mouth sore Gastroenteritis Tiredness Facial weakness Otitis media Migraine GERD (gastroesophageal reflux disease) Surgical History History of breast lump/mass excision Family History Father Cancer Hypertension FH: prostate cancer Mother Hypertension Substance abuse DVT (deep venous thrombosis) Paternal Grandmother Breast cancer Paternal Grandfather FH: testicular cancer Stomach cancer Maternal Grandmother DVT (deep venous thrombosis) Social History Housing: Apartment Alcohol intake: current Alcohol intake frequency: does not drink Patient Tobacco Use Status: Never used Tobacco Years Smoked: 2012 prn e-Cigarette/Vaping Use: Never Used Second Hand Smoke Exposure: No Advance Directives Date on File: 06/05/23 service: No Current occupational status: employed Current occupational exposures/hazards: No Cognitive needs: No Hearing needs: No Vision needs: No Questionnaire PHQ-9 Over the last 2 weeks, how often have you been bothered by any of the following problems? 1. Little interest or pleasure in doing things: several days 2. Feeling down, depressed, or hopeless: several days 3. Trouble falling or staying asleep, or sleeping too much: not at all 4. Feeling tired or having little energy: not at all 5. Poor appetite or overeating: not at all 6. Feeling bad about yourself - or that you are a failure or have let yourself or your family down: not at all 7. Trouble concentrating on things, such as reading the newspaper or watching television: not at all 8. Moving or speaking so slowly that other people could have noticed. Or the opposite - being so fidgety or restless that you have been moving around a lot more than usual: not at all 9. Thoughts that you would be better off or of hurting yourself in some way: not at all Total score: 2 Source: Developed by Drs. Bora Colmenares, Dahlia Tijerina, Yunior Porras and colleagues, with an educational sheila from [employer] Thrive Questionnaire Date Thrive assessed: 08/22/25 I am a: Patient AUDIT C Alcohol Use Questionnaire (AUDIT-C) 1. How often do you have a drink containing alcohol?: Monthly or less 2. How many drinks containing alcohol do you have on a typical day when you are drinking?: 1 or 2 Total Score: 1 Score Reviewed/Action Taken: Yes MERCY-7 AMB Questionnaire MERCY-7 Date MERCY - 7 assessed: 10/21/24 Feeling nervous, anxious, or on edge: 0 = Not at all Not being able to stop or control worryin = Not at all Worrying too much about different things: 0 = Not at all Trouble relaxin = Not at all Being so restless that it is hard to sit still: 0 = Not at all Becoming easily annoyed or irritable: 0 = Not at all Feeling afraid as if something awful might happen: 0 = Not at all Total MERCY-7 score (0-4 normal; 5-9 mild; 10-14 moderate; 15-21 severe): 0 Source: Developed by Drs. Bora Colmenares, Dahlia Tijerina, Yunior Porras and colleagues, with an educational sheila from [employer] Review of Systems Narrative Review of Systems - Constitutional: Reports a 10-pound weight gain since December. - Neurological: Reports headaches since recent travel. - Extremities: Reports pain in both legs, described as throbbing at night. Denies leg swelling. Physical exam (Primary Care) Vital Signs: Last Vital Signs Temp 98.1 F 08/22/25 16:21 Pulse 92 08/22/25 16:21 BP 90/60 08/22/25 16:21 Pulse Ox 98 08/22/25 16:21 Oxygen Delivery Method Room Air 08/22/25 16:21 BMI result Body Mass Index 30.9 Tobacco/Smoking Status: Tobacco use Status Tobacco use date assessed 01/21/25 08/22/25 16:23 Patient Tobacco Use Status Never used Tobacco 08/22/25 16:23 e-Cigarette/Vaping Use Never Used 08/22/25 16:23 PHQ-9: PHQ-9 Score PHQ-9: Total score 2 08/22/25 16:39 Thrive Assessment: Date of Thrive Assessment Date Thrive assessed 08/22/25 08/22/25 16:23 Narrative Physical Exam Const General: alert; No acute distress Eyes Conjunctivae: conjunctivae normal Resp Auscultation: clear to auscultation bilaterally Cardio Rate: regular rate Rhythm: regular rhythm GI Inspection: Yes normal to inspection Extrem General: Yes normal to inspection and No edema Coding Level of Care Code Est Pt Level 3 (11248) Diagnoses History of recurrent deep vein thrombosis (DVT) Z86.718 Bilateral leg pain M79.604; M79.605 Assessment & Plan Assessment & Plan (1) History of recurrent deep vein thrombosis (DVT): Comment: 10/2024 Code(s): Z86.718 - Personal history of other venous thrombosis and embolism Category: Medical Plan: Patient has taken her extra Lovenox shots more recently. (2) Bilateral leg pain: Code(s): M79.604 - Pain in right leg; M79.605 - Pain in left leg Category: Medical Plan Plan Patient was informed and verbally consented to the use of an ambient scribe for clinic note documentation during this visit. 1. Bilateral Leg Pain The patient presents with new-onset bilateral leg pain and throbbing, which is suspicious for recurrent deep vein thrombosis, especially given the patient's significant past history. An order will be placed for a stat bilateral lower extremity ultrasound to be done as soon as possible, ideally today, to rule out acute DVT. 2. History Of Deep Venous Thrombosis (Dvt) And Pulmonary Embolism (Pe) The patient's history of multiple thromboembolic events, including one during , and non-adherence to anticoagulation place the patient at high risk for recurrence. Management will be determined pending the results of the stat ultrasound. The patient's family history of thrombosis, despite negative genetic testing, was also noted as a contributing risk factor. Discussion Notes I discussed with the patient that the new symptoms of bilateral leg pain are concerning for recurrent deep vein thrombosis, particularly in the context of the patient's history of DVT and PE. I explained that I am ordering a stat bilateral lower extremity ultrasound to evaluate this possibility and that we will aim to have it done today. We reviewed the patient's non-completion of the recommended anticoagulation course and the importance of this treatment. I instructed the patient to check out with the front edger staff, who will coordinate the scheduling for the urgent ultrasound. Patient Instructions - Go to the front edger after your visit. - The staff will schedule an urgent ultrasound of both your legs to check for blood clots. - They will try to get this test done for you today. - Follow up for the results as directed. Orders: Orders US venous duplex LE BI Today I26.99 - Other pulmonary embolism without acute cor pulmonale, M79.604 - Pain in right leg, M79.605 - Pain in left leg, Z86.718 - Personal history of other venous thrombosis and embolism
--- OUTSIDE RECORDS SUMMARY | 2025-08-22 16:21 | XMS_ITS | Patient Health Record ---
Author Organization [facility] Address [address] [place] [address] Care Team Providers Care Cryptologic Support Specialist Name Role Phone LEXI GALVAN Unavailable [phone] AMOR CARLOSLA Unavailable [phone] Allergies No Known Allergies Reason For Referral No Information Medications Medication SIG (Take, Route, Frequency, Duration) Notes Start Date End Date Status Levonorgestrel 1.5 MG Tablet as directed Orally Active Levonorgestrel 1.5 MG Tablet as directed Orally Unknown Levonorgestrel 1.5 MG Tablet as directed Orally Active Valtrex Unknown Levonorgestrel 1.5 MG Tablet as directed Orally Unknown Eliquis Unknown Social History Sex Assigned At : Social History Observation Description Sex Assigned At Female Social History HIV Risk Assessment Social Info Question Answer Notes Additional Questions Is an HIV Risk Assessment being c onducted? No Reproductive Life Plan: Social Info Question Answer Notes Reproductive Life Plan: Do you want to have children? Yes How long would you like to wait until you/your partner becomes ? 1 - 5 years How sure are you that you will be able to use your control method without any problems? Sure Human Trafficking: Social Info Question Answer Notes Human Trafficking Experienced: No PrEP for HIV: Social Info Question Answer Notes PrEP for HIV Is the client intere sted in beginning/continuing PrEP for HIV? No Sexual History: Social Info Question Answer Notes Sexual History: Sexual History Reviewed: Partner s, Practices, Protection/Past STIs, Prevention of Currently sexually active? Yes Sexually active with: Men Number of male partners 1 Your sexual activities include: oral intercourse, vaginal intercourse Reviewed types of EC? No Do you use condoms? No Date of last unprotected intercourse: 03/28/2023 Number of partners in past 3 months: 1 Number of partners in past year: 1 Does your partner(s) currently have any STIs? No Counseling Provided: Social Info Question Answer Notes Counseling Provided Please indicate the length of time, in minutes, that counseling was provided. 7 Counseling Was Provided By: yelitza Drugs/Alcohol: Social Info Question Answer Notes Drug/Alcohol Use Do you or have you used drugs? No Do you or have you used alcohol? Yes, currently occasionally Food Access: Social Info Question Answer Notes Food Access The Client's current access to food is [employer] Food Access Relationships: Social Info Question Answer Notes Relationships Has the client exper ienced any of the following: ___ Housing Social Info Question Answer Notes Housing The client's current living situation is: stable housing Tobacco Use: Social Info Question Answer Notes Tobacco Use: Do you/have you used tobacco? No Tobacco Smoking Status Never smoker Plan Of Treatment No Information Insurance Providers Payer Name Payer Address Payer Phone Subscriber Number Group Number Insured Name Patient Relationship to Insured Coverage Start Date Coverage End Date [place] [address] [place] [id number] Sharifa Granger Self - patient is the insured Medications Administered Medication Instructions Date of Administration Dosage Notes Depo 150mg 05/11/2022 Medical (General) History Medical History History ICD Code Migraines (no aura) DVT 05/2023 Surgical History Surgery Date(Month/Year) Hospitalization History Reason Date(Month/Year) child
== END 2025-08-22 17:07 | disposition home or self-care (01) ==
LOC: HO.HMCH 16:19
PROVIDERS: PCP Internal Medicine; Visit Provider Internal Medicine
DX: Z86.718 Personal history of other venous thrombosis and embolism (principal); M79.604 Pain in right leg; M79.605 Pain in left leg

== ENCOUNTER 2025-08-22 17:18 | Outpatient (REF) | payer OTHER, SELFPAY ==
--- NOTE | ~2025-08-22 | US_ITS ---
CLINICAL HISTORY: M79.604 - PAIN IN BOTH LOWER EXTREMITY Venous duplex ultrasound bilateral lower extremity Comparison: US - US VENOUS DUPLEX LE RT - 02/16/25 07:49 EDT Findings: The visualized deep veins are fully compressible with normal Doppler color flow and spectral tracings. Incidentally noted right inguinal lymph node measuring 1.6 x 0.5 cm. IMPRESSION: 1. Negative for bilateral lower extremity deep vein thrombosis. This document has been electronically signed by: Grisel Morrow MD on 08/22/2025 18:30:01
== END 2025-08-22 17:19 | disposition home or self-care (01) ==
LOC: HO.US 17:18
PROVIDERS: PCP Internal Medicine; Visit Provider Internal Medicine
DX: M79.604 Pain in right leg (principal); M79.605 Pain in left leg; I26.99 Other pulmonary embolism without acute cor pulmonale; Z86.718 Personal history of other venous thrombosis and embolism
CPT/HCPCS: 93970; 99212

== ENCOUNTER 2025-08-25 15:39 | Outpatient (AMB) | payer OTHER, SELFPAY ==
--- OUTSIDE RECORDS SUMMARY | 2024-09-17 11:45 | XMS_ITS ---
Author Organization [facility] Address [address] [place] [address] Care Team Providers Care Semi Conductor Assembler Name Role Phone MANDY LEXI Unavailable [phone] REASON FOR VISIT Infection Screening Social History Sex Assigned At : Social History Observation Description Sex Assigned At Female Encounters Encounter Location Date Provider Diagnosis [facility] [address] [place] [address] [place] [id number] 09/17/2024 LEXI RAMIREZ Plan Of Treatment No Information Progress Notes * Sharifa GRANGER BDOB:1989 (35 yo F)Acc No.[id number]:09/17/2024 Progress Notes Patient: Lorene garciajuana Sharifa Cara Provider: Esperanza Ramirez NP :1990 A ge:34 Y S ex:Female Date:09/17/2024 Address:[address] [id number] Subjective: * Chief Complaints: * I nfection Screening * Electronic signature of OLIVER RAMIREZ NP on 08/25/2025 at 08:09 PM EST Sign off status: Pending * Provider: Esperanza Ramirez NP Date: 11/18/2023 Generated for Printi ng/Faxing/eTransmitting on: 10/25/2024 08:09 PM EST
--- OUTSIDE RECORDS SUMMARY | 2024-09-20 10:45 | XMS_ITS ---
Author Organization [facility] Address [address] [place] [address] Care Team Providers Care Aviation Safety Inspector Name Role Phone LIS CARLOS Unavailable [phone] REASON FOR VISIT Infection Screening Social History Sex Assigned At : Social History Observation Description Sex Assigned At Female Encounters Encounter Location Date Provider Diagnosis [facility] [address] [place] [id number] LIS CARLOS Plan Of Treatment No Information Progress Notes * Sharifa GRANGER BDOB:1989 (35 yo F)Acc No.[id number]:09/20/2024 Progress Notes Patient: Lorene Sharifa bai Provider: Brad CARLOS :1990 A ge:34 Y S ex:Female Date:09/20/2024 Address:[address] [id number] Subjective: * Chief Complaints: * I nfection Screening * Electronic signature of PETRA CARLOS CNM on 08/25/2025 at 08:09 PM EST Sign off status: Pending * Provider: Brad CARLOS Date: 11/21/2023 Generated for Rachel frey/Johnathan/eTransmitting on: 10/25/2024 08:09 PM EST
[2025-08-25 16:04] VITALS: BP 110/80; PULSE 89; TEMP 36.3; O2SAT 99; BMI 30.8
--- NOTE | 2025-08-25 16:04 | A.OFFPC_ITS ---
Vital Signs 08/25/25 16:04 Height 5 ft 3 in Weight 174 lb BMI 30.8 BP 110/80 Blood Pressure Location Lt brachial Position Sitting Pulse 89 Pulse Source Pulse Oximeter Temp 97.3 F Temp Source Temporal Artery Scan Pulse Oximetry (%) 99 Oxygen Delivery Method Room Air Intake Visit Reasons: annual exam Intake Note: Patient is here to follow up on Clearance for work and Holter monitor results. Automatic Spooler Operator Required: No Business Analysis Professional: Not Required per policy Accompanied by: Self / Same As Patient Allergies No Known Allergies Allergy (Verified 08/25/25 16:16) Medication List - Last Reconciled 08/25/25 by Kenia Wilson PA-C acetaminophen (Tylenol Extra Strength) 1,000 mg (2 x 500 mg) PO Q6H PRN acetylcysteine (NAC) 600 mg PO DAILY ascorbate calcium (vitamin C) 500 mg PO DAILY diphenhydramine HCl (Banophen) 50 mg PO DAILY enoxaparin 40 mg (0.4 mL) subcut DAILY ferrous sulfate (Feosol) 325 mg PO DAILY metoclopramide HCl 10 mg PO DAILY omega 1-fnw-ivc-fish oil 1,000 (120-180) mg (Fish Oil) 1 cap PO DAILY sumatriptan succinate (Imitrex) 50 mg PO Q2-4H PRN valacyclovir 500 mg PO DAILY PRN Tobacco use date assessed: 01/21/25 Dental Screening Dental Screen Date: 10/21/24 Did you have a dental visit in the last 12 months?: Yes Did you have a dental problem in the last 6 months where you did not have access to dental care?: No Was dental information given to patient?: Patient has dentist HPI annual exam HPI Details 31-year-old female with past medical his tory of asthma, anxiety, depression, tobacco abuse last seen 06/2025 coming in for follow up. She was started on Sertraline at her last visit and propranolol for performance anxiety.? Presenting for a follow-up visit to discuss new-onset bilateral leg pain and neck pain. The patient reports developing bilateral leg pain with a throbbing quality after a trip to [place]. A recent ultrasound of the legs was negative for DVT. The pain is intermittent and has largely resolved. The patient also reports experiencing pain described as brain pains, which is characteriz ed as a stiff pain in the head that radiates with neck movement. This pain is thought to be muscular, related to posture while caring for the patient's new . pap smears: UTD Tapestry vaccines: UTD declines flu PFSH Medical History Palpitations Anemia Calf cramp Hearing difficulty of both ears Blood pressure elevated without history of HTN Mouth sore Gastroenteritis Tiredness Facial weakness Otitis media Migraine GERD (gastroesophageal reflux disease) Surgical History History of breast lump/mass excision Family History Father Cancer Hypertension FH: prostate cancer Mother Hypertension Substance abuse DVT (deep venous thrombosis) Paternal Grandmother Breast cancer Paternal Grandfather FH: testicular cancer Stomach cancer Maternal Grandmother DVT (deep venous thrombosis) Social History Housing: Apartment Alcohol intake: current Alcohol intake frequency: does not drink Patient Tobacco Use Status: Never used Tobacco Years Smoked: 2012 prn e-Cigarette/Vaping Use: Never Used Second Hand Smoke Exposure: No Advance Directives Date on File: 06/05/23 service: No Current occupational status: employed Current occupational exposures/hazards: No Cognitive needs: No Hearing needs: No Vision needs: No Questionnaire PHQ-9 Over the last 2 weeks, how often have you been bothered by any of the following problems? 1. Little interest or pleasure in doing things: several days 2. Feeling down, depressed, or hopeless: several days 3. Trouble falling or staying asleep, or sleeping too much: not at all 4. Feeling tired or having little energy: not at all 5. Poor appetite or overeating: not at all 6. Feeling bad about yourself - or that you are a failure or have let yourself or your family down: not at all 7. Trouble concentrating on things, such as reading the newspaper or watching television: not at all 8. Moving or speaking so slowly that other people could have noticed. Or the opposite - being so fidgety or restless that you have been moving around a lot more than usual: not at all 9. Thoughts that you would be better off or of hurting yourself in some way: not at all Total score: 2 Source: Developed by Drs. Bora Colmenares, Dahlia Tijerina, Yunior Porras and colleagues, with an educational sheila from [employer]. Thrive Questionnaire Date Thrive assessed: 08/22/25 I am a: Patient What is your living situation today?: I have a steady place to live Within the past 12 months, did the food you bought not last and you didn't have the money to get more?: I choose not to answer this question Within the past 12 months, did you worry whether your food would run out before you got money to buy more?: I choose not to answer this question Do you have trouble paying for medicines?: I choose not to answer this question Do you have trouble getting transportation to medical appointments?: I choose not to answer this question Do you have trouble paying your heating and electricity bill?: I choose not to answer this question Do you have trouble taking care of your child, family member or friend?: I choose not to answer this question Do you have trouble with day-to-day activities such as bathing, preparing meals, shopping, managing finances, etc.?: I choose not to answer this question Are you currently unemployed and looking for a job?: I choose not to answer this question Are you interested in more education?: I choose not to answer this question THRIVE Score: 0 AUDIT C Alcohol Use Questionnaire (AUDIT-C) 1. How often do you have a drink containing alcohol?: Monthly or less 2. How many drinks containing alcohol do you have on a typical day when you are drinking?: 1 or 2 Total Score: 1 Score Reviewed/Action Taken: Yes MERCY-7 AMB Questionnaire MERCY-7 Date MERCY - 7 assessed: 10/21/24 Feeling nervous, anxious, or on edge: 0 = Not at all Not being able to stop or control worryin = Not at all Worrying too much about different things: 0 = Not at all Trouble relaxin = Not at all Being so restless that it is hard to sit still: 0 = Not at all Becoming easily annoyed or irritable: 0 = Not at all Feeling afraid as if something awful might happen: 0 = Not at all Total MERCY-7 score (0-4 normal; 5-9 mild; 10-14 moderate; 15-21 severe): 0 Source: Developed by Drs. Bora Colmenares, Dahlia Tijerina, Yunior Porras and colleagues, with an educational sheila from [employer]. Review of Systems Const Denies body aches, Denies fatigue, Denies fever(s), Denies frequent falls, Reports headache(s) and Denies weakness Eyes Reports no additional complaints and Denies change in vision ENT Denies dysphagia, Denies dizziness, Denies facial pain, Reports headache(s), Denies nasal congestion and Denies odynophagia Card Denies chest pain, Denies syncope, Denies irregular heart rhythm, Denies leg edema, Denies lightheadedness and Denies dyspnea Resp Denies cough and Denies dyspnea GI Denies constipation, Denies dysphagia, Denies dyspepsia, Denies diarrhea, Denies nausea, Denies odynophagia and Denies vomiting Denies urinary frequency, Denies dysuria, Denies urinary hesitancy and Denies urinary urgency Musc Denies back pain and Denies myalgias Skin/Breast Reports system reviewed and no additional complaints, except as documented Neuro Denies dizziness, Denies syncope, Denies frequent falls, Reports headache(s) and Denies weakness Psych Reports no additional complaints Endo Denies fatigue Physical exam (Primary Care) Vital Signs: Last Vital Signs Temp 97.3 F 08/25/25 16:04 Pulse 89 08/25/25 16:04 BP 110/80 08/25/25 16:04 Pulse Ox 99 08/25/25 16:04 Oxygen Delivery Method Room Air 08/25/25 16:04 BMI result Body Mass Index 30.8 Tobacco/Smoking Status: Tobacco use Status Tobacco use date assessed 01/21/25 08/25/25 16:09 Patient Tobacco Use Status Never used Tobacco 08/25/25 16:09 e-Cigarette/Vaping Use Never Used 08/25/25 16:09 PHQ-9: PHQ-9 Score PHQ-9: Total score 2 08/26/25 07:50 Thrive Assessment: Date of Thrive Assessment Date Thrive assessed 08/22/25 08/25/25 16:09 Const General: cooperative, healthy appearing, comfortable and no acute distress Orientation/consciousness: patient oriented x3 HENMT Head: Yes normocephalic Ears: hearing grossly normal bilaterally, external ears normal, TM's normal bilaterally and EAC's normal General nose exam: Normal external nose present Face and sinus: Yes normal facial exam and Yes sinuses nontender Mouth: Normal oral and palatal mucosa present and tongue normal Throat: Yes posterior oropharynx normal Eyes General: appearance normal, both eyes and all related structures Conjunctivae: conjunctivae normal Pupils: Equal, round and reactive pupils present EOM: EOMs intact bilaterally and No Nystagmus present Neck Neck: Yes normal visual inspection, Yes full ROM and Yes no lymphadenopathy Chest Chest palpation & inspection: normal inspection of the chest Resp Effort & Inspection: normal respiratory effort Auscultation: clear to auscultation bilaterally, no crackles, no rales, no rhonchi, no wheezes and breath sounds present Cardio Rate: regular rate Rhythm: regular rhythm Peripheral pulses: radial pulses present and dorsalis pedis present GI Inspection: Yes normal to inspection and No Abdominal wall edema Palpation (GI): Soft to palpation, not firm and nontender Auscultation: normal bowel sounds Rectal Exam - Female: deferred General: Yes no CVA tenderness Back/Spine/Pelvis Back: no CVA tenderness Skin General skin exam: no rashes or lesions noted Neuro General: patient oriented x3 Cranial nerves: Yes Equal, round and reactive pupils present, Yes Midline tongue present, Yes Ability to bilaterally elevate shoulders present and No Nystagmus present Gait exam (Neuro): Normal gait present Extrem General: Yes normal to inspection, Yes full ROM, No no pedal edema and No edema Psych Speech and movement: Normal speech and movement present Affect: normal affect Insight: Good insight present (Psych) Judgement: Good judgement present (Psych) Coding Level of Care Code Est Pt Prev Care [id number]([id number]) Diagnoses Annual physical exam Z00.00 Mild episode of recurrent major depressive disorder F33.0 Active/Remission status: currently active Depression Type: major depressive disorder Major depression episode severity: mild Major depression recurrence: recurrent History of recurrent deep vein thrombosis (DVT) Z86.718 Overweight (BMI 25.0-29.9) E66.3 Gastroesophageal reflux disease without esophagitis K21.9 Esophagitis presence: without esophagitis Neck pain M54.2 Assessment & Plan Assessment & Plan (1) Annual physical exam: Code(s): Z00.00 - Encounter for general adult medical examination without abnormal findings Category: Medical Plan: Patient is up-to-date on all recommended routine screenings and vaccinations for her age. She is declining the flu shot today. Blood work is up-to-date and has been reviewed with the patient today. Healthy diet and regular exercise is encouraged. Plan for six-month follow up and blood work at that time. Patient may follow up sooner as needed (2) Depression: Code(s): F32.A - Depression, unspecified Category: Medical Qualifiers: Active/Remission status: currently active Depression Type: major depressive disorder Major depression episode severity: mild Major depression recurrence: recurrent Qualified Code(s): F33.0 - Major depressive disorder, recurrent, mild Plan: Patient feels well managed without medication or counseling at this time. (3) History of recurrent deep vein thrombosis (DVT): Comment: 2022, 10/2024 Code(s): Z86.718 - Personal history of other venous thrombosis and embolism Category: Medical Plan: She was recently seen by Hematology and not continued on a blood thinner at this time. We reviewed the symptoms of a DVT and when to present for re-evaluation (4) Overweight (BMI 25.0-29.9): Code(s): E66.3 - Overweight Category: Medical Plan: Healthy diet and regular exercise is encouraged. (5) GERD (gastroesophageal reflux disease): Code(s): K21.9 - Gastro-esophageal reflux disease without esophagitis Category: Medical Qualifiers: Esophagitis presence: without esophagitis Qualified Code(s): K21.9 - Gastro-esophageal reflux disease without esophagitis Plan: Avoid trigger foods such as citrus, tomato products, soda, caffeine, spicy foods and other foods that may be irritating to your stomach. Avoid laying flat 3-4 hours after eating and elevate the head of the bed 30 degrees to prevent acid from moving into the esophagus. (6) Neck pain: Code(s): M54.2 - Cervicalgia Category: Medical Plan: The assessment for the patient's neck and head pain is muscular strain due to posture, particularly from looking down while feeding the infant. The plan includes education on gentle neck stretching exercises and behavioral modifications, such as improving posture by bringing objects to eye level. [id number] analgesics such as Tylenol or ibuprofen can be used as needed for pain, which is safe as the patient is not on blood thinners. Plan This note was constructed using voice recognition software. While every effort has been made to ensure accuracy and acid pump operator, still areas may have been included sometimes these areas may affect the content or meeting of the given symptoms. Total time spent caring for the patient today was 30 minutes. This includes time spent before the visit reviewing the chart, time spent during the visit, and time spent after the visit and documentation. Patient was informed and verbally consented to the use of an ambient scribe for clinic note documentation during this visit. Orders: Orders Complete Blood Count Auto Diff 08/25/25 D64.9 - Anemia, unspecified, Z13.0 - Encounter for screening for diseases of the blood and blood-forming organs and certain disorders involving the immune mechanism IRON PROFILE 08/25/25 D64.9 - Anemia, unspecified Comprehensive Met. Panel 08/25/25 K21.9 - Gastro-esophageal reflux disease w ithout esophagitis, Z00.00 - Encounter for general adult medical examination without abnormal findings TSH reflex Free T4 08/25/25 K21.9 - Gastro-esophageal reflux disease without esophagitis, Z13.29 - Encounter for screening for other suspected endocrine disorder Vitamin B12 and Folate 08/25/25 K21.9 - Gastro-esophageal reflux disease without esophagitis, Z13.21 - Encounter for screening for nutritional disorder Lipid Panel 08/25/25 Z13.220 - Encounter for screening for lipoid disorders Vitamin D 25-OH Total 08/25/25 K21.9 - Gastro-esophageal reflux disease without esophagitis, Z13.21 - Encounter for screening for nutritional disorder Medications: Discontinued enoxaparin Discontinued Reason: Patient no longer taking 40 mg (0.4 mL) subcut DAILY 30 mL 0RF ascorbate calcium (vitamin C) Discontinued Reason: Patient no longer taking 500 mg PO DAILY 30 tabs 4RF D50.9 - Iron deficiency anemia, unspecified, D64.9 - Anemia, unspecified ferrous sulfate (Feosol) Discontinued Reason: Patient no longer taking 325 mg PO DAILY 90 tabs 2RF D64.9 - Anemia, unspecified
--- OUTSIDE RECORDS SUMMARY | 2025-08-25 20:09 | XMS_ITS | Patient Health Record ---
Author Organization [facility] Address [address] [place] [address] Care Team Providers Care Baby Formula Worker Name Role Phone LEXI GALVAN Unavailable [phone] AMOR CARLOSLA Unavailable [phone] Allergies No Known Allergies Reason For Referral [...] Insured Coverage Start Date Coverage End Date [place] ATT CLAIMS [address] [place] [address] [id number] Sharifa Granger Self - patient is the insured Medications Administered Medication Instructions Date of Administration Dosage Notes Depo 150mg 05/11/2022 Medical (General) History Medical History History ICD Code Migraines (no aura) DVT 05/2023 Surgical History Surgery Date(Month/Year) Hospitalization History Reason Date(Month/Year) child
== END 2025-08-25 16:40 | disposition home or self-care (01) ==
LOC: HO.HMCH 15:40
PROVIDERS: PCP Internal Medicine
DX: Z00.00 Encounter for general adult medical examination without abnormal findings (principal); F33.0 Major depressive disorder, recurrent, mild; Z86.718 Personal history of other venous thrombosis and embolism; E66.3 Overweight; K21.9 Gastro-esophageal reflux disease without esophagitis; M54.2 Cervicalgia

== ENCOUNTER → 2025-08-25 15:39 | Outpatient (BNVA) | payer OTHER, SELFPAY | PROVIDERS: PCP Internal Medicine | DX: Z00.00 Encounter for general adult medical examination without abnormal findings (principal); J45.909 Unspecified asthma, uncomplicated; F41.9 Anxiety disorder, unspecified; M79.605 Pain in left leg; M79.604 Pain in right leg; M54.2 Cervicalgia; F33.0 Major depressive disorder, recurrent, mild; K21.9 Gastro-esophageal reflux disease without esophagitis; D50.9 Iron deficiency anemia, unspecified; E66.3 Overweight; Z68.30 Body mass index [BMI] 30.0-30.9, adult; Z86.718 Personal history of other venous thrombosis and embolism | CPT/HCPCS: 99395 ==